=== PATIENT | male | born 1970 | race Caucasian/White ===

== ENCOUNTER 2020-10-21 00:45 | Day surgery (SDC) | payer BC, SELFPAY ==
[2020-10-01 14:12] VITALS: BMI 36.0
[2020-10-21 09:42] VITALS: BMI 34.8
[2020-10-21 09:49] VITALS: BP 129/91; PULSE 87; RESP 18; O2SAT 99
[2020-10-21 09:51] VITALS: BP 116/80; PULSE 84; RESP 16; O2SAT 99
--- NOTE | 2020-10-21 09:55 | PM.HPGS ---
History of Present Illness History of Present Illness Consent: Risks, benefits, and alternatives have been discussed and questions answered. Patient agrees to proceed with procedure. Chief complaint: Hemorrhoids Narrative: Alessio Iyer is a 49 year old male with perianal discomfort, last colonoscopy had medium size internal hemorrhoids Review of Systems Constitutional: Constitutional: Denies headache(s) and Denies weakness Eyes: Eyes: Denies blurry vision ENT: Reports Normal hearing present, Denies headache(s) and Denies neck pain Cardiovascular: Cardiovascular: Denies chest pain and Denies dyspnea Respiratory: Respiratory: Denies dyspnea Gastrointestinal: Gastrointestinal: Reports no additional gastrointestinal complaints Genitourinary: Genitourinary: Denies dysuria Musculoskeletal: Musculoskeletal: Denies neck pain Integumentary/Breasts: Skin/Breast: Denies dry skin Neurologic: Reports Normal hearing present, Denies headache(s) and Denies weakness Psychiatric: Psychiatric: Denies anxiety Endocrine: Endocrine: Denies change in body appearance Hematologic/Lymphatic: Hematologic/Lymphatic: Denies easy bleeding Allergic/Immunologic: Allergic/Immunologic: Denies urticaria PMF Past Medical History Medical History (Updated 06/18/20 @ 11:47 by Princess Saravia APN-C) Anxiety Benign hypertension (~03/2019) BPH (benign prostatic hyperplasia) Cervical spondylosis Degenerative disc disease Diverticulitis of colon with perforation Dyslipidemia GERD (gastroesophageal reflux disease) Gout Hemorrhoids Hernia History of diverticular abscess (~2004) Hypogonadism Hypokalemia Hyponatremia Irritable bowel syndrome Obesity (BMI 30-39.9) Polyarthralgia Pre-diabetes Syncope and collapse (~03/2019) Tobacco dependence Type 2 diabetes mellitus without complications Unspecified osteoarthritis, unspecified site Surgical History Surgical History History of incisional hernia repair 2006 History of partial colectomy 2004 - secondary to perforated diverticulitis Family History Family History Father Diabetes mellitus Social History Social History Smoking packs per day: 1 Smoking cigarettes per day: 20.0 Years smoked: 35 Smoking pack-years: 35.00 Smoking status: Current every day smoker Tobacco type: cigarettes Second hand tobacco smoke exposure: Yes Additional smoking assessment comments: consume 1 pack of cigarettes daily Alcohol intake: current Drinks per week: 24 Alcohol use details: beer Substance use: never Substance use type: does not use Living arrangements: with family Gender identity (if verbalized by the patient): Male Spiritual care concerns: No Meds Home Medications and Allergies Home Medications Medication Instructions Recorded Confirmed Type albuterol sulfate 90 mcg/actuation 2 puff INHALATION Q4-6H PRN gm 10/09/19 10/08/20 History aerosol inhaler blood sugar diagnostic #100 each 12/19/19 10/08/20 Rx blood-glucose meter #1 each 12/19/19 10/08/20 Rx buspirone 30 mg tablet 30 mg PO BID 12/19/19 10/08/20 History finasteride 5 mg tablet 5 mg PO DAILY 12/19/19 10/08/20 History lancets 31 gauge #100 each 12/19/19 10/08/20 Rx allopurinol 300 mg tablet 300 mg PO DAILY #90 tablet 02/05/20 10/08/20 Rx indapamide 2.5 mg tablet 2.5 mg PO QAM #90 tablet 02/05/20 10/08/20 Rx rosuvastatin 20 mg tablet 20 mg PO DAILY #90 tablet 02/05/20 10/08/20 Rx losartan 50 mg tablet 50 mg PO DAILY #90 tablet 02/18/20 10/08/20 Rx omeprazole 40 mg capsule,delayed 40 mg PO DAILY #90 cap 02/18/20 10/08/20 Rx release metformin 1,000 mg tablet See Rx Instructions .ROUTE 07/28/20 10/08/20 Rx .COMPLEX #180 tablet amoxicillin 875 mg-potassium 1 tablet PO Q12H #20 tablet 10/08/20 10/08/20 Rx clavulanat
--- NOTE | 2020-10-21 09:58 | PM.PROC ---
Procedure Note - Detailed Date of procedure: 10/21/20 Pre-op diagnosis: Hemorrhoids Post-op diagnosis: same Procedure performed: infrared coagulation (IRC) Description of procedure: after he signed consent, I performed rectal exam, no lesions, only small hemorrhoids, no fissure. Then I introduced IRC using anoscope, found grade II internal hemorrhoids, treated with IRC x5 applications at 1.5 seconds each time, no complications. We did not use anesthesia Complications: No immediate complications Condition: stable Anesthesia: none Surgeon: Danny Krause MD Findings: grade II internal hemorrhoids
== END 2020-10-21 10:00 | disposition home or self-care (01) ==
PROVIDERS: PCP Family Medicine; Visit Provider Internal Medicine Gastroenterology
PROC: (CPT 46930; principal; 2020-10-21 09:45)
DX: K64.1 Second degree hemorrhoids (principal); K57.30 Diverticulosis of large intestine without perforation or abscess without bleeding; I10 Essential (primary) hypertension; E11.9 Type 2 diabetes mellitus without complications; E78.5 Hyperlipidemia, unspecified; E66.9 Obesity, unspecified; K21.9 Gastro-esophageal reflux disease without esophagitis; K58.9 Irritable bowel syndrome, unspecified; M25.50 Pain in unspecified joint; M10.9 Gout, unspecified; M19.90 Unspecified osteoarthritis, unspecified site; N40.0 Benign prostatic hyperplasia without lower urinary tract symptoms; F17.200 Nicotine dependence, unspecified, uncomplicated; F41.9 Anxiety disorder, unspecified; Z90.49 Acquired absence of other specified parts of digestive tract
CPT/HCPCS: 46930

== ENCOUNTER 2021-01-14 01:11 | Day surgery (SDC) | payer BC, SELFPAY ==
[2021-01-09 14:26] VITALS: BMI 34.4
[2021-01-14 11:58] VITALS: BMI 34.7
--- NOTE | 2021-01-14 12:27 | PM.HPGS ---
History of Present Illness History of Present Illness Consent: Risks, benefits, and alternatives have been discussed and questions answered. Patient agrees to proceed with procedure. Chief complaint: hemorrhoid Narrative: Alessio Iyer is a 50 year old male still with symptomatic hemorrhoids, he says that last IRC did not make much of difference and tried in the past topical hemorrhoidal rx Review of Systems Constitutional: Constitutional: Denies headache(s) and Denies weakness Eyes: Eyes: Denies blurry vision ENT: Reports Normal hearing present, Denies headache(s) and Denies neck pain Cardiovascular: Cardiovascular: Denies chest pain and Denies dyspnea Respiratory: Respiratory: Denies dyspnea Gastrointestinal: Gastrointestinal: Reports no additional gastrointestinal complaints Genitourinary: Genitourinary: Denies dysuria Musculoskeletal: Musculoskeletal: Denies neck pain Integumentary/Breasts: Skin/Breast: Denies dry skin Neurologic: Reports Normal hearing present, Denies headache(s) and Denies weakness Psychiatric: Psychiatric: Denies anxiety Endocrine: Endocrine: Denies change in body appearance Hematologic/Lymphatic: Hematologic/Lymphatic: Denies easy bleeding Allergic/Immunologic: Allergic/Immunologic: Denies urticaria PMFSH Past Medical History Medical History Anxiety Benign hypertension (~03/2019) BPH (benign prostatic hyperplasia) Cervical spondylosis Degenerative disc disease Diverticulitis of colon with perforation Dyslipidemia GERD (gastroesophageal reflux disease) Gout Hemorrhoids Hernia History of diverticular abscess (~2004) Hypogonadism Hypokalemia Hyponatremia Irritable bowel syndrome Obesity (BMI 30-39.9) Polyarthralgia Pre-diabetes Syncope and collapse (~03/2019) Tobacco dependence Type 2 diabetes mellitus without complications Unspecified osteoarthritis, unspecified site Surgical History Surgical History History of incisional hernia repair 2006 History of partial colectomy 2004 - secondary to perforated diverticulitis Family History Family History Father Diabetes mellitus Social History Social History Smoking packs per day: 1 Smoking cigarettes per day: 20.0 Years smoked: 35 Smoking pack-years: 35.00 Smoking status: Current every day smoker Tobacco type: cigarettes Second hand tobacco smoke exposure: Yes Additional smoking assessment comments: consume 1 pack of cigarettes daily Alcohol intake: current Drinks per week: 24 Substance use: never Substance use type: does not use Gender identity (if verbalized by the patient): Male Spiritual care concerns: No Meds Home Medications and Allergies Home Medications Medication Instructions Recorded Confirmed Type albuterol sulfate 90 mcg/actuation 2 puff INHALATION Q4-6H PRN gm 10/09/19 01/14/21 History aerosol inhaler blood sugar diagnostic #100 each 12/19/19 01/09/21 Rx blood-glucose meter #1 each 12/19/19 01/09/21 Rx buspirone 30 mg tablet 30 mg PO BID 12/19/19 01/14/21 History finasteride 5 mg tablet 5 mg PO DAILY 12/19/19 01/14/21 History lancets 31 gauge #100 each 12/19/19 01/09/21 Rx allopurinol 300 mg tablet 300 mg PO DAILY #90 tablet 02/05/20 01/14/21 Rx indapamide 2.5 mg tablet 2.5 mg PO QAM #90 tablet 02/05/20 01/14/21 Rx blood sugar diagnostic #100 ea 11/05/20 01/09/21 Rx glipizide 5 mg tablet, extended 5 mg PO DAILY #90 tablet 11/05/20 01/14/21 Rx release 24 hr omeprazole 40 mg capsule,delayed 40 mg PO DAILY #90 cap 11/14/20 01/14/21 Rx release losartan 50 mg tablet 50 mg PO DAILY #90 tablet 11/19/20 01/14/21 Rx potassium chloride 10 mEq 10 meq PO DAILY #90 tablet 11/19/20 01/14/21 Rx tablet,extended release metformin 1,000
--- NOTE | 2021-01-14 12:29 | P.OP_ITS ---
Procedure Note - Detailed Date of procedure: 01/14/21 Pre-op diagnosis: hemorrhoid internal hemorrhoids Procedure performed: IRC Description of procedure: Description of procedure: after he signed consent, I performed rectal exam, no lesions, only small hemorrhoids, no fissure. Then I introduced IRC using anoscope, found grade II internal hemorrhoids at 12- 3 o 'clock, treated with IRC x4 applications at 1.5 seconds each time, no complications. We did not use anesthesia Complications: No immediate complications Condition: stable Anesthesia: none Surgeon: Danny Krause MD Findings: recommendations: will see if second IRC helps, if not probably no need to try another time. Avoid hard stools, straining and if still symptomatic may need to see surgery
== END 2021-01-14 12:39 | disposition home or self-care (01) ==
PROVIDERS: PCP Family Medicine; Visit Provider Internal Medicine Gastroenterology
PROC: (CPT 46930; principal; 2021-01-14 12:00)
DX: K64.1 Second degree hemorrhoids (principal); I10 Essential (primary) hypertension; K21.9 Gastro-esophageal reflux disease without esophagitis; E78.5 Hyperlipidemia, unspecified; N40.0 Benign prostatic hyperplasia without lower urinary tract symptoms; F41.9 Anxiety disorder, unspecified; E11.9 Type 2 diabetes mellitus without complications; M19.90 Unspecified osteoarthritis, unspecified site; M47.812 Spondylosis without myelopathy or radiculopathy, cervical region; K58.9 Irritable bowel syndrome, unspecified; F17.210 Nicotine dependence, cigarettes, uncomplicated; Z79.51 Long term (current) use of inhaled steroids; Z79.84 Long term (current) use of oral hypoglycemic drugs
CPT/HCPCS: 46930; J7120

== ENCOUNTER 2021-10-13 13:39 | Outpatient (CLI) | payer BC, SELFPAY ==
--- NOTE | ~2021-10-13 | XR_ITS ---
EXAMINATION: XR chest 2V EXAM DATE: 10/13/2021 13:59 INDICATION: Cough, shortness of breath, symptoms one month. TECHNIQUE: Frontal and lateral projections of the chest obtained and reviewed. Comparison is made to prior examination from 03/16/2019. FINDINGS: The lungs are clear. There are no pleural effusions. The cardiomediastinal silhouette is within normal limits. There is no pneumothorax suspected. The bones and soft tissues are unremarkab le. IMPRESSION: No acute cardiopulmonary findings. Reviewed, dictated and finalized at location [facility]. PER ON
== END 2021-10-13 13:40 | disposition home or self-care (01) ==
LOC: ANHIMG 13:43
PROVIDERS: PCP Family Medicine; Visit Provider Emergency Medicine
DX: R05.9 Cough, unspecified (principal); R06.02 Shortness of breath
CPT/HCPCS: 71046

== ENCOUNTER 2021-11-18 09:21 | Outpatient (CLI) | payer BC, SELFPAY ==
--- NOTE | ~2021-11-18 | US_ITS ---
EXAMINATION: US right upper quadrant DATE: 11/18/2021 09:48 INDICATION: Abnormal liver function tests. TECHNIQUE: Multiple grayscale and Doppler ultrasound images of the abdomen were obtained. COMPARISON: CT abdomen and pelvis 12/05/2018 FINDINGS: The pancreas is obscured by bowel gas. There is diffuse hepatic steatosis. No liver surface nodularity. There is normal flow in main portal vein. The gallbladder is normal in size. No gallston es or gallbladder wall thickening. There was no sonographic Schultz sign. The common duct is normal an d measures 5 mm. IMPRESSION: 1. Diffuse hepatic steatosis. Reviewed, dictated and finalized at location [facility].
== END 2021-11-18 09:22 | disposition home or self-care (01) ==
LOC: ANHIMG 09:22
PROVIDERS: PCP Emergency Medicine; Visit Provider Emergency Medicine
DX: R74.8 Abnormal levels of other serum enzymes (principal); K76.0 Fatty (change of) liver, not elsewhere classified
CPT/HCPCS: 76705

== ENCOUNTER 2022-03-30 12:14 | Outpatient (CLI) | payer BC, SELFPAY ==
--- NOTE | ~2022-03-30 | US_ITS ---
EXAMINATION: US retroperitoneal duplex ltd DATE: 03/30/2022 13:51 INDICATION: hypertension TECHNIQUE: Multiple grayscale, color Doppler, and pulsed Doppler images of the kidneys and renal adonis allan were obtained. COMPARISON: None. FINDINGS: The aorta peak systolic velocity is 73 cm/s. The right renal artery peak systolic velocity is 175 cm/ s in the proximal segment, 128 cm/s in the mid segment, and 124 cm/s in the distal segment. The left renal artery peak systolic velocity is 135 cm/s in the proximal segment, 70 cm/s in the mid segment, and 83 cm/s in the distal segment. IMPRESSION: 1. No Doppler evidence of renal artery stenosis. Reviewed, dictated and finalized at location [facility].
== END 2022-03-30 12:15 | disposition home or self-care (01) ==
PROVIDERS: PCP Emergency Medicine; Visit Provider Internal Medicine Nephrology
DX: N18.30 Chronic kidney disease, stage 3 unspecified (principal); I10 Essential (primary) hypertension
CPT/HCPCS: 93976

== ENCOUNTER 2022-08-12 07:09 | Outpatient (CLI) | payer BC, SELFPAY ==
--- NOTE | ~2022-08-12 | CT_ITS ---
EXAMINATION: CT abdomen pelvis wo con DATE: 08/12/2022 07:36 INDICATION: Abdominal pain. History of diverticulitis and umbilical hernia surgery TECHNIQUE: Computed tomography (CT) of the abdomen and pelvis was performed without intravenous contr ast. Automated exposure control and iterative reconstruction technique were employed. Exam dose: 785 .76 mGy-cm total exam DLP. COMPARISON: 03/30/2022 retroperitoneal ultrasound examination 11/18/2021 right upper quadrant abdominal ultrasound examination 12/05/2018 CT abdomen pelvis FINDINGS: The lung bases are clear. Normal heart size. No pericardial or pleural effusion. The liver, gallbladder, bile ducts, spleen, pancreas, pancreatic duct and adrenal glands are unremark able. Nonspecific bilateral perinephric fat stranding is noted. No urinary tract calculus or hydroureterone phrosis. The urinary bladder is unremarkable. There is prostate calcification. There is atherosclerotic calcification but normal caliber of the abdominal aorta and iliac arteries. No intraperitoneal or retroperitoneal or pelvic mass lesion or adenopathy or ascites. There is a suture line at the sigmoid colon. Status post appendectomy. No bowel obstruction, bowel wa ll thickening, pneumatosis or intraperitoneal free air is detected. Small bilateral fat-containing inguinal hernias. No umbilical or ventral abdominal wall hernia is det ected. Status post mesh umbilical hernia repair. Bilateral L5 pars interarticularis defects. Prominent degenerative spurring at T9-10 and T12-L1. Mild retrolisthesis at L2-3. Moderate degenerative disc disease at L5-S1. No suspicious osteolytic or osteoblastic lesions. IMPRESSION: Status post sigmoid colon resection and appendectomy Status post umbilical hernia repair Chronic nonspecific perinephric fat stranding, also present on 12/05/2018 Bilateral L5 pars interarticularis defects Reviewed, dictated and finalized at [facility]. Reviewed, dictated and finalized at location [facility]. 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
== END 2022-08-12 07:10 | disposition home or self-care (01) ==
LOC: ANHIMG 07:13
PROVIDERS: PCP Emergency Medicine; Visit Provider Emergency Medicine
DX: R10.9 Unspecified abdominal pain (principal); Z98.890 Other specified postprocedural states; M53.86 Other specified dorsopathies, lumbar region
CPT/HCPCS: 74176

== ENCOUNTER 2022-11-26 14:33 | Outpatient (CLI) | payer BC, SELFPAY ==
--- NOTE | ~2022-11-26 | CT_ITS ---
Non-contrast CT scan of the Abdomen and Pelvis Clinical indication: Abdominal cramping, vomiting Technique: 2.5 mm axial scans were obtained through the abdomen and pelvis without intravenous or or al contrast. Dose reduction technique was used on this scan by utilizing automated exposure control a nd iterative reconstruction technique. The dose-length product (DLP) was 750.04 mGy-cm. COMPARISON: 08/12/2022 Findings: Images through the lung bases reveal no abnormalities. There is no evidence of renal or ureteral calculi. The kidneys and the ureters are nondilated. The liver, spleen, pancreas, gallbladder, and adrenals appear normal. There is no aortic aneurysm. There is no evidence of bowel obstruction. Rectosigmoid region anastomosis noted. Evidence of prior u mbilical hernia repair. Images through the pelvis were performed. There is no evidence of ascites or lymphadenopathy. Urinary bladder unremarkable. Prostate gland and seminal vesicles are unremarkable. Bilateral L5 pars interarticularis defects are present. Impression: No acute abnormality. Postsurgical changes, as above. Bilateral L5 pars interarticularis defects. Reviewed, dictated and finalized at [facility]. Impression: No acute abnormality. Postsurgical changes, as above. Bilateral L5 pars interarticularis defects.
--- NOTE | ~2022-11-26 | XR_ITS ---
XR abdomen/kub 1V DATE: 11/26/2022 14:54 INDICATION: Abdominal cramping, vomiting. HISTORY: Resection. TECHNIQUE: 2 AP views of the abdomen COMPARISON: 08/12/2022 CT abdomen pelvis FINDINGS: The lung bases appear clear. Heart size appears within normal range. The psoas shadows are intact. No visceromegaly is evident. Surgical clips overlie the left mid and lower abdomen. Radiopaque bowel sutures overlie the pelvic ar ea. History of colon resection. No evidence of bowel obstruction. No significant abnormal calcification is noted. IMPRESSION: Nonspecific postoperative abdomen Reviewed, dictated and finalized at [facility]. Reviewed, dictated and finalized at location A.
== END 2022-11-26 14:34 | disposition home or self-care (01) ==
PROVIDERS: PCP Emergency Medicine; Visit Provider Emergency Medicine
DX: R10.9 Unspecified abdominal pain (principal); R11.10 Vomiting, unspecified; Z98.890 Other specified postprocedural states
CPT/HCPCS: 74018; 74176

== ENCOUNTER 2022-12-28 00:05 | Day surgery (SDC) | payer BC, SELFPAY ==
[2022-12-20 08:30] VITALS: BMI 29.4
[2022-12-28 06:22] VITALS: BP 129/75; PULSE 85; RESP 18; TEMP 36.2; O2SAT 99
[2022-12-28] MEDS: LACTATED RINGERS 1,000 ML 150 ML IV CONT (06:35)
[2022-12-28 07:11] LABS: Glucose Point of Care 101 mg/dl (65-105)
--- NOTE | 2022-12-28 07:15 | WPDANESEPPF ---
Anes - Initial Pre Proc Eval Procedure: Operation Date: 12/28/22 07:30 Proposed Procedures p Colonoscopy - Danny Krause MD Date/Time: 12/28/22 07:15 Surgeon: Danny Krause MD Pre Op Diagnosis: diverticulitis with perforation, IBS Patient Data Age: 52 Gender: M Height: 1.78 m Weight: 91.6 kg Last Vital Signs Temp 36.2 C L 12/28/22 06:22 Pulse 85 12/28/22 06:22 Resp 18 12/28/22 06:22 BP 129/75 12/28/22 06:22 Pulse Ox 99 12/28/22 06:22 O2 Del Method Room Air 12/28/22 06:22 Allergies Allergy/AdvReac Type Severity Reaction Status Date / Time No Known Allergies Allergy Verified 12/28/22 06:22 Home Medications Medication Instructions Recorded Confirmed Type blood-glucose meter #1 ea 12/19/19 12/20/22 Rx buspirone 30 mg tablet 30 mg PO BID 12/19/19 12/20/22 History finasteride 5 mg tablet 5 mg PO DAILY 12/19/19 12/20/22 History flash glucose scanning reader #1 ea 03/17/21 12/20/22 Rx (FreeStyle [place] 2 [place]) flash glucose sensor (FreeStyle #1 ea 03/17/21 12/20/22 Rx Neville 2 Sensor kit) losartan 50 mg tablet 50 mg PO DAILY #90 tabs 02/09/22 12/20/22 Rx fenofibrate 160 mg tablet 160 mg PO DAILY #90 tabs 03/01/22 12/20/22 Rx indapamide 2.5 mg tablet 2.5 mg PO QAM #90 tabs 04/26/22 12/20/22 Rx rosuvastatin 20 mg tablet (Crestor) 20 mg PO DAILY #90 tabs 04/26/22 12/20/22 Rx dulaglutide 1.5 mg/0.5 mL 1.5 mg subcut WEEKLY 06/23/22 12/20/22 History subcutaneous pen injector (Trulicity) omeprazole 40 mg capsule,delayed 40 mg PO DAILY #90 caps 06/23/22 12/20/22 Rx release hydroxyzine HCl 25 mg tablet 25 mg PO TID PRN anxiety #90 tabs 08/06/22 12/20/22 Rx Farxiga 10 mg PO DAILY 12/20/22 12/20/22 History Symbicort 2 puff inhalation DAILY 12/20/22 12/20/22 History albuterol 2 puff inhalation PRN sob 12/20/22 12/20/22 History magnesium oxide 400 mg PO DAILY 12/20/22 12/20/22 History Laboratory Tests 12/28/22 07:08 POC Capillary Glucose 101 mg/dl mg/dl (65-105) Patient hx anesthesia problems: none Family hx anesthesia problems: none Results Review: All pre-operative results and documents have been reviewed as part of the pre-operative evaluation. [facility] Past Medical History Medical History Anxiety Benign hypertension (~03/2019) BPH (benign prostatic hyperplasia) Cervical spondylosis Degenerative disc disease Diverticulitis of colon with perforation Dyslipidemia GERD (gastroesophageal reflux disease) GERD (gastroesophageal reflux disease) Gout Hemorrhoids History of diverticular abscess (~2004) Hx of adenomatous colonic polyps Hypogonadism Hypokalemia Hyponatremia IBS (irritable bowel syndrome) Irritable bowel syndrome Obesity (BMI 30-39.9) Polyarthralgia Tobacco dependence Type 2 diabetes mellitus without complications Unspecified osteoarthritis, unspecified site Surgical History Surgical History History of hemorrhoidectomy 01/2021 History of incisional hernia repair 2006 History of partial colectomy 2004 - secondary to perforated diverticulitis S/P colostomy takedown 2006 Family History Family History Father Diabetes mellitus Social History Social History Smoking packs per day: 1 Smoking cigarettes per day: 20.0 Years smoked: 35 Smoking pack-years: 35.00 Smoking status: Current every day smoker Tobacco type: cigarettes Second hand tobacco smoke exposure: Yes Additional smoking assessment comments: consume 1 pack of cigarettes daily Alcohol intake: current Drinks per week: 48 Alcohol use details: beer Substance use: current Substance use type: marijuana Living arrangements: with family Gender identity (if verbalized by the patient):
--- NOTE | 2022-12-28 07:37 | WPDHPUPDATE1 ---
History and Physical Update Update Date/Time: 12/28/22 07:37 History and Physical has been reviewed, including an updated exam of the patient. There are NO changes in the patient's condition. Risks, benefits, and alternatives have been discussed and questions answered. Patient agrees to proceed with procedure.
[2022-12-28 07:54] VITALS: BP 116/84; PULSE 83; RESP 19; O2SAT 96
[2022-12-28 08:04] VITALS: BP 115/66; PULSE 78; RESP 18; O2SAT 99
[2022-12-28 08:14] VITALS: BP 127/74; PULSE 69; RESP 16; O2SAT 100
== END 2022-12-28 08:17 | disposition home or self-care (01) ==
PROVIDERS: PCP Emergency Medicine; Visit Provider Internal Medicine Gastroenterology
PROC: 0DJD8ZZ Inspection of Lower Intestinal Tract, Via Natural or Artificial Opening Endoscopic (ICD-10-PCS; CPT 45378; principal; 2022-12-28 07:30)
DX: K58.0 Irritable bowel syndrome with diarrhea (principal); K63.5 Polyp of colon; K64.8 Other hemorrhoids; Z86.010 Personal history of colon polyps; Z98.0 Intestinal bypass and anastomosis status; Z90.49 Acquired absence of other specified parts of digestive tract; Z87.19 Personal history of other diseases of the digestive system; I10 Essential (primary) hypertension; E11.9 Type 2 diabetes mellitus without complications; N40.0 Benign prostatic hyperplasia without lower urinary tract symptoms; F41.9 Anxiety disorder, unspecified; E78.5 Hyperlipidemia, unspecified; K21.9 Gastro-esophageal reflux disease without esophagitis; M10.9 Gout, unspecified; Z79.899 Other long term (current) drug therapy; Z79.51 Long term (current) use of inhaled steroids; F17.210 Nicotine dependence, cigarettes, uncomplicated; F12.90 Cannabis use, unspecified, uncomplicated
CPT/HCPCS: 45385; 82948; 88305; J2704; J7120

== ENCOUNTER 2023-07-14 10:50 | Outpatient (CLI) | payer BC, SELFPAY ==
--- NOTE | ~2023-07-14 | MR_ITS ---
MRI of the cervical spine Clinical History: Radiculopathy Technique: Axial T2-weighted and gradient images, and sagittal T1-weighted, T2-weighted, and STIR yuridia ges were acquired. COMPARISON: 01/08/2015 Findings: There is straightening of the normal cervical lordosis. There is 2-3 mm retrolisthesis of C 3 over C4. There are reactive marrow signal changes due to degenerative disc disease, most prominent at the C3-C4 and C5-C6 disc spaces. At C2-C3, there is minimal disc bulge. There is right facet arthropathy. No spinal canal stenosis or neural foraminal narrowing. At C3-C4, there is mild disc osteophyte complex, with mild canal stenosis but no arsalan cord compressi on. There is mild bilateral neural foraminal narrowing. At C4-C5, there is no significant disc bulge or herniation. No spinal canal stenosis, cord compressio n, or neural foraminal narrowing. At C5-C6, there is disc osteophyte complex with mild canal stenosis but no arsalan cord compression. Th ere is bilateral neural foraminal narrowing. At C6-C7, there is disc osteophyte complex with mild canal stenosis but no arsalan cord compression. Th ere is bilateral neural foraminal narrowing, right worse than left. No abnormal signal seen in the spinal cord. Paravertebral soft tissues are unremarkable. Impression: Moderate degenerative spondylosis, as above. 2-3 mm retrolisthesis of C3 over C4. Reviewed, dictated and finalized at [facility]. R SEAMER Impression: Moderate degenerative spondylosis, as above. 2-3 mm retrolisthesis of C3 over C4.
== END 2023-07-14 10:51 ==
PROVIDERS: PCP Nurse Practitioner Family; Visit Provider Nurse Practitioner Family
DX: M54.12 Radiculopathy, cervical region (principal); M43.02 Spondylolysis, cervical region
CPT/HCPCS: 72141

== ENCOUNTER 2024-10-01 13:23 | Emergency (ER) | payer BC, SELFPAY ==
[2024-10-01 13:28] VITALS: BP 109/78; PULSE 108; RESP 16; TEMP 37; O2SAT 98
--- NOTE | 2024-10-01 14:16 | ED_ITS ---
HPI - General Adult General Chief complaint: Unspecified Stated complaint: Abdominal Pain Time Seen by Provider: 10/01/24 14:12 Source: patient and RN notes reviewed Mode of arrival: ambulatory Limitations: no limitations History of Present Illness HPI narrative: Patient presents today complaining of abdominal pain. He has IBS-C and had a flare last night from 1:00 a.m. to 7:00 a.m. this morning with significant abdominal cramping for which he was up. He had to call into work today because of this and needs a work excuse. 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 Patient is feeling a little bit better and does have some dicyclomine for cramping, which helps some. Denies any additional symptoms. Related Data Home Medications ?Medication ?Instructions ?Recorded ?Confirmed ?Last Taken ?Type buspirone 30 mg tablet 30 mg PO BID 12/19/19 01/11/23 01/14/21 10:30 History finasteride 5 mg tablet 5 mg PO DAILY 12/19/19 01/11/23 01/14/21 10:30 History dulaglutide 1.5 mg/0.5 mL 1.5 mg subcut WEEKLY 06/23/22 01/11/23 Unknown History subcutaneous pen injector (Trulicity) Farxiga 10 mg PO DAILY 12/20/22 01/11/23 Unknown History Symbicort 2 puff inhalation DAILY 12/20/22 01/11/23 Unknown History albuterol 2 puff inhalation PRN sob 12/20/22 01/11/23 Unknown History magnesium oxide 400 mg PO DAILY 12/20/22 01/11/23 Unknown History Allergies Allergy/AdvReac Type Severity Reaction Status Date / Time No Known Allergies Allergy Verified 10/01/24 13:26 Review of Systems Review of Systems: CONSTITUTIONAL: Denies body aches, fever, chills, or sweats. EYES: Denies visual changes, redness, or discharge. ENT: Denies rhinorrhea, congestion, sore throat, or otalgia. CARDIOVASCULAR: Denies chest pain, palpitations, or edema. RESPIRATORY: Denies cough or dyspnea. GASTROINTESTINAL: Denies nausea, vomiting, or diarrhea.+ abdominal cramping GENITOURINARY: Denies dysuria or hematuria. SKIN: Denies rash, itching, or wounds. MUSCULOSKELETAL: Denies back pain, joint pain, or myalgia. NEUROLOGIC: Denies headache, numbness, tingling, or weakness. PSYCH: Denies depression or anxiety. [facility] Past Medical History Medical History IBS (irritable bowel syndrome) GERD (gastroesophageal reflux disease) Hx of adenomatous colonic polyps Tobacco dependence Obesity (BMI 30-39.9) Hemorrhoids Irritable bowel syndrome BPH (benign prostatic hyperplasia) Dyslipidemia Type 2 diabetes mellitus without complications Hyponatremia Polyarthralgia Benign hypertension (~03/2019) Anxiety GERD (gastroesophageal reflux disease) Unspecified osteoarthritis, unspecified site Hypokalemia Hypogonadism Diverticulitis of colon with perforation Degenerative disc disease Cervical spondylosis Gout History of diverticular abscess (~2004) Surgical History Surgical History S/P colostomy takedown 2006 History of hemorrhoidectomy 01/2021 History of partial colectomy 2004 - secondary to perforated diverticulitis History of incisional hernia repair 2006 Family History Family History Father Diabetes mellitus Social History Social History Smoking packs per day: 1 Smoking cigarettes per day: 20.0 Years smoked: 35 Smoking pack-years: 35.00 Smoking status: Current every day smoker Tobacco type: cigarettes Second hand tobacco smoke exposure: Yes Additional smoking assessment comments: consume 1 pack of cigarettes daily Alcohol intake: current Drinks per week: 48 Alcohol use details: beer Substance use: current Substance use type: marijuana Living arrangements: with family Gender identity (if verbalized by the patient): Male Spiritual care concerns: No Comments At time of signature, I have reviewed and agree with nursing past medical, surgical, social and family history unless otherwise noted. Please see nursing chart for further information. There is no relevant family history pertinent to the presenting complaint Exam Narrative: GENERAL: Well-appearing, well-nourished, and in no acute distress. HEAD: Normocephalic, atraumatic. EYES: EOMI. No redness or drainage. Conjunctivae normal. ENT: Mucous membranes pink and moist. NECK: Normal AROM. CHEST: No respiratory distress. Clear to auscultation. HEART: Regular rate and rhythm. No murmur appreciated. ABDOMEN: Soft, nontender, nondistended, normal active bowel sounds. EXTREMITIES: Normal range of motion. No edema. SKIN: Warm, dry, no rash. Capillary refill normal. Normal skin turgor. NEURO: No focal deficits. Alert and oriented x3. Gait steady. PSYCH: Normal affect. No signs of depression or anxiety. Course Course Level of Care: Express Care Visit Vital Signs Vital signs: Vital Signs Temperature 98.6 F 10/01/24 13:28 Pulse Rate 108 H 10/01/24 13:28 Respiratory Rate 16 10/01/24 13:28 Blood Pressure 109/78 10/01/24 13:28 Pulse Oximetry 98 10/01/24 13:28 Oxygen Delivery Room Air 10/01/24 13:28 Temperature 98.6 F 10/01/24 13:28 Pulse Rate 108 H 10/01/24 13:28 Respiratory Rate 16 10/01/24 13:28 Blood Pressure 109/78 10/01/24 13:28 Pulse Oximetry 98 10/01/24 13:28 Oxygen Delivery Room Air 10/01/24 13:28 Reviewed Medical Decision Making MDM Narrative Medical decision making narrative: Patient will be discharged with a work excuse. He will follow-up with his GI or PCP as needed. Differential Diagnosis Differential Diagnosis: Your double bowel syndrome, abdominal cramping Vital Signs Vital Signs: Vital Signs Temperature 98.6 F 10/01/24 13:28 Pulse Rate 108 H 10/01/24 13:28 Respiratory Rate 16 10/01/24 13:28 Blood Pressure 109/78 10/01/24 13:28 Pulse Oximetry 98 10/01/24 13:28 Oxygen Delivery Room Air 10/01/24 13:28 Temperature 98.6 F 10/01/24 13:28 Pulse Rate 108 H 10/01/24 13:28 Respiratory Rate 16 10/01/24 13:28 Blood Pressure 109/78 10/01/24 13:28 Pulse Oximetry 98 10/01/24 13:28 Oxygen Delivery Room Air 10/01/24 13:28 Critical Care Time Critical Care Time Critical Care Time: No Discharge Plan Discharge Clinical Impression: Abdominal cramping Patient Disposition: Home, Self-Care Condition: Stable Instructions: Antibiotic Form Additional Instructions: Please continue your dicyclomine as prescribed if needed. 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 Patient Language: Cymraes Prescriptions: No Action finasteride 5 mg tablet 5 mg PO DAILY buspirone 30 mg tablet 30 mg PO BID (DME) FreeStyle [place] 2 [place] Misc See Rx Instructions .Route Qty: 1 0RF Rx Instructions: use As directed (DME) FreeStyle [place] 2 Sensor Kit See Rx Instructions .Route Qty: 1 0RF Rx Instructions: use As directed Trulicity 1.5 mg/0.5 mL pen injector 1.5 mg subcut WEEKLY Farxiga 10 mg PO DAILY Symbicort 2 puff inhalation DAILY albuterol 2 puff inhalation PRN magnesium oxide 400 mg PO DAILY (DME) blood-glucose meter Kit See Rx Instructions .ROUTE .MEDSUPPLY Qty: 1 0RF Rx Instructions: Use to check blood sugar once daily fasting losartan 50 mg tablet 50 mg PO DAILY Qty: 90 1RF Rx Instructions: take 1 tablet by oral route every day fenofibrate 160 mg tablet 160 mg PO DAILY Qty: 90 1RF indapamide 2.5 mg tablet 2.5 mg PO QAM Qty: 90 0RF rosuvastatin [Crestor] 20 mg tablet 20 mg PO DAILY Qty: 90 0RF omeprazole 40 mg capsule,delayed release(DR/EC) See Rx Instructions .ROUTE .COMPLEX Qty: 90 3RF Dose Instruction: TAKE 1 CAPSULE DAILY BEFORE A MEAL Rx Instructions: TAKE 1 CAPSULE DAILY BEFORE A MEAL dicyclomine 10 mg capsule See Rx Instructions .ROUTE .COMPLEX Qty: 360 7RF Dose Instruction: TAKE 1 TO 2 CAPSULES EVERY 6 HOURS NEEDED FOR ABDOMINAL PAIN Rx Instructions: TAKE 1 TO 2 CAPSULES EVERY 6 HOURS NEEDED FOR ABDOMINAL PAIN amitriptyline 25 mg tablet 25 mg PO QHS Qty: 90 3RF Follow-up/Referrals: Blaze Paulino MD [Primary Care Provider] - Stand Alone Forms: Work/School Release IP Time of Disposition: 14:24
== END 2024-10-01 14:30 | disposition home or self-care (01) ==
PROVIDERS: Emergency Provider Nurse Practitioner; PCP Emergency Medicine
DX: R10.9 Unspecified abdominal pain (principal); F17.210 Nicotine dependence, cigarettes, uncomplicated; F12.90 Cannabis use, unspecified, uncomplicated; K58.9 Irritable bowel syndrome, unspecified; N40.0 Benign prostatic hyperplasia without lower urinary tract symptoms; E11.9 Type 2 diabetes mellitus without complications; K21.9 Gastro-esophageal reflux disease without esophagitis; E66.9 Obesity, unspecified; Z68.32 Body mass index [BMI] 32.0-32.9, adult; E78.5 Hyperlipidemia, unspecified; M19.90 Unspecified osteoarthritis, unspecified site; M47.812 Spondylosis without myelopathy or radiculopathy, cervical region; M10.9 Gout, unspecified; Z90.49 Acquired absence of other specified parts of digestive tract
CPT/HCPCS: 99211; G0463

== ENCOUNTER 2024-10-18 13:59 | Emergency (ER) | payer BC, SELFPAY ==
[2024-10-18 14:11] VITALS: BP 111/70; PULSE 108; RESP 14; TEMP 36.8; O2SAT 97
--- NOTE | 2024-10-18 14:40 | ED_ITS ---
HPI - Nausea/Vomiting/Diarrhea General Chief complaint: Nausea/Vomiting/Diarrhea Stated complaint: IBS flare up, work note Time Seen by Provider: 10/18/24 14:40 Source: patient, RN notes reviewed and old records reviewed Mode of arrival: ambulatory Limitations: no limitations History of Present Illness HPI Narrative: Patient presents with complaints of abdominal cramping that he says is consistent with his usual IBS pain. He reports that he is little more nauseated than normal. He does not have any medication for nausea. He has been taking dicyclomine with moderate relief. Reports that he does feel somewhat better now the had a bowel movement this morning. Reports bowel movement was normal for him. He denies any injury or trauma. He denies any fever, chills, sweats. He voices no other concerns or complaints today. Related Data Home Medications ?Medication ?Instructions ?Recorded ?Confirmed ?Last Taken ?Type buspirone 30 mg tablet 30 mg PO BID 12/19/19 10/18/24 01/14/21 10:30 History finasteride 5 mg tablet 5 mg PO DAILY 12/19/19 10/18/24 01/14/21 10:30 History dulaglutide 1.5 mg/0.5 mL 1.5 mg subcut WEEKLY 06/23/22 10/18/24 Unknown History subcutaneous pen injector (Trulicity) Farxiga 10 mg PO DAILY 12/20/22 10/18/24 Unknown History Symbicort 2 puff inhalation DAILY 12/20/22 10/18/24 Unknown History albuterol 2 puff inhalation PRN sob 12/20/22 10/18/24 Unknown History magnesium oxide 400 mg PO DAILY 12/20/22 10/18/24 Unknown History Allergies Allergy/AdvReac Type Severity Reaction Status Date / Time No Known Allergies Allergy Verified 10/18/24 14:45 Review of Systems Review of Systems: All systems reviewed & are unremarkable except as noted in HPI and below Constitutional: Constitutional: Reports no additional constitutional complaints ENT: Reports system reviewed and no additional complaints, except as documented Cardiovascular: Cardiovascular: Reports no additional cardiovascular complaints Respiratory: Respiratory: Reports no additional respiratory complaints Gastrointestinal: Gastrointestinal: Reports no additional gastrointestinal complaints, Reports GI cramping and Reports nausea PMFSH Past Medical History Medical History IBS (irritable bowel syndrome) GERD (gastroesophageal reflux disease) Hx of adenomatous colonic polyps Tobacco dependence Obesity (BMI 30-39.9) Hemorrhoids Irritable bowel syndrome BPH (benign prostatic hyperplasia) Dyslipidemia Type 2 diabetes mellitus without complications Hyponatremia Polyarthralgia Benign hypertension (~03/2019) Anxiety GERD (gastroesophageal reflux disease) Unspecified osteoarthritis, unspecified site Hypokalemia Hypogonadism Diverticulitis of colon with perforation Degenerative disc disease Cervical spondylosis Gout History of diverticular abscess (~2004) Surgical History Surgical History S/P colostomy takedown 2006 History of hemorrhoidectomy 01/2021 History of partial colectomy 2004 - secondary to perforated diverticulitis History of incisional hernia repair 2006 Family History Family History Father Diabetes mellitus Social History Social History Smoking packs per day: 1 Smoking cigarettes per day: 20.0 Years smoked: 35 Smoking pack-years: 35.00 Smoking status: Current every day smoker Tobacco type: cigarettes Second hand tobacco smoke exposure: Yes Additional smoking assessment comments: consume 1 pack of cigarettes daily Alcohol intake: current Drinks per week: 48 Alcohol use details: beer Substance use: current Substance use type: marijuana Living arrangements: with family Gender identity (if verbalized by the patient): Male Spiritual care concerns: No Comments At the time of my signature, I reviewed and agree with the nursing past medical, surgical, social, and family history. There is no relevant family history pertinent to the patient complaint. Exam Const: General: cooperative, no acute distress, alert and awake Orientation/consciousness: oriented to person, oriented to place and oriented to time HENMT: Head: normal to inspection Resp: Effort & Inspection: normal respiratory effort and able to speak in complete sentences Auscultation: clear to auscultation bilaterally, no crackles, no rales, no rhonchi and no wheezes Cardio: Palpation: normal PMI Rate: regular rate Rhythm: regular rhythm Heart sounds: S1 normal heart sound present and S2 normal heart sound present GI: GI Palp: No abdominal tenderness, Yes Soft to palpation, No Firmness to palpation present (GI), No Tenderness to palpation present (GI) and No Guarding due to palpation present (GI) Auscultation: normal bowel sounds Neuro: General: oriented to person, oriented to place and oriented to time Cranial nerves: Yes CN's II-XII intact bilaterally Psych: Appearance: grossly normal Thought process: Normal thought process present Insight: Good insight present (Psych) Judgement: Good judgement present (Psych) Course Course Level of Care: Express Care Visit Vital Signs Vital signs: Vital Signs Temperature 98.3 F 10/18/24 14:11 Pulse Rate 108 H 10/18/24 14:11 Respiratory Rate 14 10/18/24 14:11 Blood Pressure 111/70 10/18/24 14:11 Pulse Oximetry 97 10/18/24 14:11 Oxygen Delivery Room Air 10/18/24 14:11 Temperature 98.3 F 10/18/24 14:11 Pulse Rate 108 H 10/18/24 14:11 Respiratory Rate 14 10/18/24 14:11 Blood Pressure 111/70 10/18/24 14:11 Pulse Oximetry 97 10/18/24 14:11 Oxygen Delivery Room Air 10/18/24 14:11 Reviewed MDM - Nausea/Vomiting/Diarrhea MDM Narrative Medical decision making narrative: Reassuring physical exam. Patient reports symptoms are typical of his IBS symptoms. He is managing with dicyclomine. Started on Zofran here. Emergency department precautions discussed Differential Diagnosis Differential diagnosis: Likely food poisoning Medical Records Attestation: I reviewed the patient's medical records. Discharge Plan Discharge Clinical Impression: Irritable bowel syndrome Qualifiers: Irritable bowel syndrome type: unspecified Qualified Code(s): K58.9 - Irritable bowel syndrome without diarrhea Patient Disposition: Home, Self-Care Condition: Stable Instructions: Antibiotic Form, Irritable Bowel Syndrome (ED) Patient Language: Slovenian Prescriptions: New ondansetron 4 mg tablet,disintegrating 4 mg PO Q6H PRN (Reason: nausea and vomiting) Qty: 30 0RF No Action finasteride 5 mg tablet 5 mg PO DAILY buspirone 30 mg tablet 30 mg PO BID (DME) FreeStyle [place] 2 [place] Misc See Rx Instructions .Route Qty: 1 0RF Rx Instructions: use As directed (DME) FreeStyle [place] 2 Sensor Kit See Rx Instructions .Route Qty: 1 0RF Rx Instructions: use As directed Trulicity 1.5 mg/0.5 mL pen injector 1.5 mg subcut WEEKLY Farxiga 10 mg PO DAILY Symbicort 2 puff inhalation DAILY albuterol 2 puff inhalation PRN magnesium oxide 400 mg PO DAILY (DME) blood-glucose meter Kit See Rx Instructions .ROUTE .MEDSUPPLY Qty: 1 0RF Rx Instructions: Use to check blood sugar once daily fasting losartan 50 mg tablet 50 mg PO DAILY Qty: 90 1RF Rx Instructions: take 1 tablet by oral route every day fenofibrate 160 mg tablet 160 mg PO DAILY Qty: 90 1RF indapamide 2.5 mg tablet 2.5 mg PO QAM Qty: 90 0RF rosuvastatin [Crestor] 20 mg tablet 20 mg PO DAILY Qty: 90 0RF omeprazole 40 mg capsule,delayed release(DR/EC) See Rx Instructions .ROUTE .COMPLEX Qty: 90 3RF Dose Instruction: TAKE 1 CAPSULE DAILY BEFORE A MEAL Rx Instructions: TAKE 1 CAPSULE DAILY BEFORE A MEAL dicyclomine 10 mg capsule See Rx Instructions .ROUTE .COMPLEX Qty: 360 7RF Dose Instruction: TAKE 1 TO 2 CAPSULES EVERY 6 HOURS NEEDED FOR ABDOMINAL PAIN Rx Instructions: TAKE 1 TO 2 CAPSULES EVERY 6 HOURS NEEDED FOR ABDOMINAL PAIN amitriptyline 25 mg tablet 25 mg PO QHS Qty: 90 3RF Follow-up/Referrals: Blaze Paulino MD [Primary Care Provider] - Stand Alone Forms: Work/School Release IP Time of Disposition: 15:01
[2024-10-18] MEDS: ONDANSETRON HCL ODT 4 MG TABLET PO (14:57)
== END 2024-10-18 15:05 | disposition home or self-care (01) ==
PROVIDERS: Emergency Provider Nurse Practitioner Family; PCP Emergency Medicine
DX: K58.9 Irritable bowel syndrome, unspecified (principal); I10 Essential (primary) hypertension; F17.210 Nicotine dependence, cigarettes, uncomplicated; Z79.899 Other long term (current) drug therapy
CPT/HCPCS: 99213; A9270; G0463

== ENCOUNTER 2024-11-23 12:53 | Emergency (ER) | payer BC, SELFPAY ==
--- NOTE | ~2024-11-23 | XR_ITS ---
EXAMINATION: XR chest 2V DATE: 11/23/2024 13:16 INDICATION: One week of productive cough TECHNIQUE: PA and lateral views of the chest were obtained. COMPARISON: Chest radiograph dated 10/13/2021 FINDINGS: The lungs remain clear with no focal airspace opacities, pulmonary edema, pleural effusion or pneumot horax. The cardiomediastinal silhouette is normal. Mild thoracic spondylosis. IMPRESSION: 1. No acute cardiopulmonary disease. Reviewed, dictated and finalized at location A.
--- NOTE | 2024-11-23 12:55 | ED.URI ---
HPI - URI/Sore Throat General Chief Complaint: Upper Respiratory Infection Stated Complaint: no taste,back pain, not eating,TITUS Time Seen by Provider: 11/23/24 12:54 Source: patient Mode of arrival: ambulatory Limitations: no limitations History of Present Illness HPI Narrative: Gregg is a 53-year-old male patient presenting to the clinic today with complaints productive cough with brown phlegm, nasal congestion, chest discomfort with taking deep breaths and coughing, no taste, decreased appetite, nausea, back pain, and headache MD elicited complaint: cough and nasal congestion Related Data Home Medications ?Medication ?Instructions ?Recorded ?Confirmed ?Last Taken ?Type albuterol 2 puff inhalation PRN sob 12/20/22 10/18/24 Unknown History allopurinol 100 mg tablet mg 11/23/24 Unknown History dapagliflozin propanediol 10 mg mg 11/23/24 Unknown History tablet (Farxiga) dulaglutide 3 mg/0.5 mL mg subcut 11/23/24 Unknown History subcutaneous pen injector (Trulicity) indapamide 2.5 mg tablet mg 11/23/24 Unknown History ondansetron 4 mg disintegrating mg 11/23/24 Unknown History tablet rosuvastatin 20 mg tablet mg 11/23/24 Unknown History Allergies Allergy/AdvReac Type Severity Reaction Status Date / Time No Known Allergies Allergy Verified 11/23/24 12:56 Review of Systems Review of Systems: Pertinent positives per HPI. Patient denies any fever, chills, rash, headache, visual changes, dizziness, cough, shortness of breath, chest pain, palpitations, nausea, vomiting, diarrhea, constipation, abdominal pain, or any urinary issues. [facility] Past Medical History Medical History IBS (irritable bowel syndrome) GERD (gastroesophageal reflux disease) Hx of adenomatous colonic polyps Tobacco dependence Obesity (BMI 30-39.9) Hemorrhoids Irritable bowel syndrome BPH (benign prostatic hyperplasia) Dyslipidemia Type 2 diabetes mellitus without complications Hyponatremia Polyarthralgia Benign hypertension (~03/2019) Anxiety GERD (gastroesophageal reflux disease) Unspecified osteoarthritis, unspecified site Hypokalemia Hypogonadism Diverticulitis of colon with perforation Degenerative disc disease Cervical spondylosis Gout History of diverticular abscess (~2004) Surgical History Surgical History S/P colostomy takedown 2006 History of hemorrhoidectomy 01/2021 History of partial colectomy 2004 - secondary to perforated diverticulitis History of incisional hernia repair 2006 Family History Family History Father Diabetes mellitus Social History Social History Smoking packs per day: 1 Smoking cigarettes per day: 20.0 Years smoked: 35 Smoking pack-years: 35.00 Smoking status: Current every day smoker Tobacco type: cigarettes Second hand tobacco smoke exposure: Yes Additional smoking assessment comments: consume 1 pack of cigarettes daily Alcohol intake: current Drinks per week: 48 Alcohol use details: beer Substance use: current Substance use type: marijuana Living arrangements: with family Gender identity (if verbalized by the patient): Male Spiritual care concerns: No Comments At the time of my signature, I reviewed and agree with the nursing past medical, surgical, social, and family history. There is no relevant family history pertinent to the patient complaint. Exam Narrative: General: Well-developed, well nourished, in no apparent distress Head: Normocephalic, atraumatic Eyes: Pupils equally round and reactive to light bilaterally, EOM intact, sclera and conjunctive clear, no discharge, lids normal Ears: TMs intact and clear, ear canals clear, no drainage, grossly hearing normal. Nose: Nares patent, clear nasal discharge, no inflammation, no sinus tenderness. Mouth: Oral pharynx without lesions or masses, good dentition, MMM. Postnasal drip Neck: Supple, trachea midline, no enlargement of anterior or posterior cervical nodes, no thyroid masses or goiter palpable. Cardio: Regular rate and rhythm, s1 and s2 normal, no murmur appreciated. Resp: Lung sounds diminished in the lower bases otherwise clear, no rhonchi, rales, wheezing or rubs Course Course Emergency Course: Portions of this record may have been created with voice recognition software. Level of Care: Express Care Visit Vital Signs Vital signs: Vital Signs Temperature 36.5 C 11/23/24 13:04 Pulse Rate 100 11/23/24 13:04 Respiratory Rate 16 11/23/24 13:04 Blood Pressure 114/81 11/23/24 13:04 Pulse Oximetry 99 11/23/24 13:04 Oxygen Delivery Room Air 11/23/24 13:04 Temperature 36.5 C 11/23/24 13:04 Pulse Rate 100 11/23/24 13:04 Respiratory Rate 16 11/23/24 13:04 Blood Pressure 114/81 11/23/24 13:04 Pulse Oximetry 99 11/23/24 13:04 Oxygen Delivery Room Air 11/23/24 13:04 Vital signs reviewed MDM - URI/Sore Throat MDM Narrative Medical decision making narrative: At the time of visit patient is resting comfortably on the exam table. Patient appears to be nontoxic. Labs: COVID testing was positive in the clinic today. Diagnostics: Chest x-ray was negative for any acute cardiopulmonary process. Plan: I suspect patient has COVID with COPD exacerbation. Prescription for doxycycline, Zofran, albuterol inhaler, and prednisone was sent to the pharmacy. Supportive measures were discussed with the patient and they voiced understanding discharge instructions and agrees to treatment plan. Return precautions reviewed Differential Diagnosis Differential diagnosis: Likely upper respiratory infection, otitis media, sinusitis, viral infection, bronchitis, influenza, pharyngitis and other (COVID) Lab Data Labs: Lab Results 11/23/24 Range/Units 13:15 POC SARS CoV-2 Ag Positive (Negative) Imaging Data Radiologist's impression: ITS Impressions Chest X-Ray 11/23/24 13:19 IMPRESSION: 1. No acute cardiopulmonary disease. Discharge Plan Discharge Clinical Impression: COVID-19, COPD exacerbation Patient Disposition: Home, Self-Care Condition: Stable Instructions: Antibiotic Form, COVID-19 (Coronavirus Disease 2019) (ED) Additional Instructions: Take prescription medications only as prescribed- albuterol inhaler, prednisone, and azithromycin Increase fluids and stay well hydrated Tylenol/motrin for pain/fever Flonase and OTC antihistamines as directed Vicks vapor rub to open sinuses Sinus rinses for congestion Cepacol spray, cough drops, throat lozenges, warm tea with honey/lemon, gargle salt water to soothe throat BRAT diet for diarrhea Clear liquids x 24 hours then advance as tolerated for nausea/vomiting Go to the ED if you develop a worsening in your condition- high fever not controlled by Tylenol or Motrin, dehydration, weakness, lethargy, shortness of breath, or chest pain. Follow up with your PCP in 3-5 days if symptoms persist. Patient Language: Khmer Prescriptions: New prednisone 20 mg tablet 40 mg PO DAILY 5 Days Qty: 10 0RF albuterol sulfate 90 mcg/actuation HFA aerosol inhaler 2 puff inhalation Q4-6H PRN (Reason: shortness of breath or wheezing) 30 Days Qty: 8.5 0RF doxycycline monohydrate 100 mg capsule 100 mg PO BID 7 Days Qty: 14 0RF ondansetron 4 mg tablet,disintegrating 4 mg PO Q6H PRN (Reason: nausea and vomiting) 3 Days Qty: 12 0RF No Action indapamide 2.5 mg tablet allopurinol 100 mg tablet ondansetron 4 mg tablet,disintegrating rosuvastatin 20 mg tablet dapagliflozin propanediol [Farxiga] 10 mg tablet Trulicity 3 mg/0.5 mL pen injector SUBCUT (DME) FreeStyle [place] 2 [place] Misc See Rx Instructions .Route Qty: 1 0RF Rx Instructions: use As directed (DME) FreeStyle [place] 2 Sensor Kit See Rx Instructions .Route Qty: 1 0RF Rx Instructions: use As directed albuterol 2 puff inhalation PRN (DME) blood-glucose meter Kit See Rx Instructions .ROUTE .MEDSUPPLY Qty: 1 0RF Rx Instructions: Use to check blood sugar once daily fasting omeprazole 40 mg capsule,delayed release(DR/EC) See Rx Instructions .ROUTE .COMPLEX Qty: 90 3RF Dose Instruction: TAKE 1 CAPSULE DAILY BEFORE A MEAL Rx Instructions: TAKE 1 CAPSULE DAILY BEFORE A MEAL Follow-up/Referrals: lBaze Paulino MD [Primary Care Provider] - Stand Alone Forms: Work/School Release IP Time of Disposition: 13:26 Quality NIHSS Nursing Documentation ED NIHSS nursing documentation: reviewed/agree
[2024-11-23 13:04] VITALS: BP 114/81; PULSE 100; RESP 16; TEMP 36.5; O2SAT 99
[2024-11-23 13:28] LABS: EDCOVIDSCREEN Positive (Negative)
== END 2024-11-23 13:30 | disposition home or self-care (01) ==
PROVIDERS: Emergency Provider Nurse Practitioner Family; PCP Emergency Medicine
DX: U07.1 COVID-19 (principal); J44.1 Chronic obstructive pulmonary disease with (acute) exacerbation; F17.210 Nicotine dependence, cigarettes, uncomplicated; F12.90 Cannabis use, unspecified, uncomplicated; K21.9 Gastro-esophageal reflux disease without esophagitis; E66.9 Obesity, unspecified; Z68.28 Body mass index [BMI] 28.0-28.9, adult; N40.0 Benign prostatic hyperplasia without lower urinary tract symptoms; E78.5 Hyperlipidemia, unspecified; E11.9 Type 2 diabetes mellitus without complications; Z79.85 Long-term (current) use of injectable non-insulin antidiabetic drugs; I10 Essential (primary) hypertension; M19.90 Unspecified osteoarthritis, unspecified site; M10.9 Gout, unspecified; K58.9 Irritable bowel syndrome, unspecified
CPT/HCPCS: 71046; 87426; 99213; G0463

== ENCOUNTER 2025-01-02 12:39 | Emergency (ER) | payer BC, SELFPAY ==
--- NOTE | ~2025-01-02 | CT_ITS ---
EXAMINATION: CT abdomen pelvis w con DATE: 01/02/2025 13:49 INDICATION: Right lower quadrant abdominal pain TECHNIQUE: Computed tomography (CT) of the abdomen and pelvis was performed with 100 mL Omnipaque-350 intravenous contrast. Automated exposure control and iterative reconstruction technique were employe d. The dose-length product was 574.50 mGy-cm. COMPARISON: None FINDINGS: Lung bases are clear. Heart size is normal. No pericardial or pleural effusion. Focal hepatic steatos is at the ligamentum teres. Gallbladder, spleen, pancreas and bilateral adrenal glands are normal. Un changed mild bilateral perinephric stranding. 11 mm left renal cyst. Small amount of atherosclerotic calcifications at the bilateral renal filipe. There are a couple surgical clips near the inferior anter ior left pararenal space. Postoperative change of prior umbilical hernia repair. No dilated bowel to suggest obstruction. The appendix is not visualized. No pericecal inflammatory change to suggest acut e appendicitis. Postoperative change of prior partial colectomy with anastomotic suture line at the d istal sigmoid colon. Decompressed bladder is unremarkable. No free intraperitoneal gas or fluid. No p athologically enlarged abdominal or pelvic lymphadenopathy. Chronic appearing mild anterior wedging a t T11 and T12. Moderate lower thoracic and mild to moderate lower lumbar predominant spondylosis. 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 IMPRESSION: 1. No acute intra-abdominal/pelvic process. Reviewed, dictated and finalized at location B.
[2025-01-02 12:57] VITALS: BP 126/78; PULSE 99; RESP 18; TEMP 36.4; O2SAT 99
--- NOTE | 2025-01-02 13:14 | ED_ITS ---
HPI - Abdominal Pain General Chief Complaint: Abdominal Pain <Kiana Batres APRN - Last Filed: 01/02/25 13:16> Stated Complaint: abd pain, I need my hernia checked <Kiana Batres APRN - Last Filed: 01/02/25 13:16> Time Seen by Provider: 01/02/25 13:00 <Kiana Batres APRN - Last Filed: 01/02/25 13:16> Focused HPI: Patient is a 54-year-old male who presents to the ER with complaints right lower quadrant pain due to a hernia. He reports he has had the hernia for a couple of months but the pain has increased. Patient reports the hernia ?pops out? when he stands up and he has to push it back in. He reports his last bowel movement was approximately 2-3 days ago, which is a long range for him. Patient denies any recent fevers, chest pain, shortness of breath, urinary symptoms, or gastric reflux. He denies any pertinent medical history relevant to this ER visit. GENERAL: Well-appearing, well-nourished, and in no acute distress. HEAD: Normocephalic, atraumatic. CHEST: Clear to auscultation. ?No respiratory distress. HEART: Regular rate and rhythm.? NEURO: ?Alert and oriented x3. Patient screened in triage and initial orders placed.? ?Additional care and disposition to be based upon?diagnostic testing and treatment. <Kiana Batres APRN - Last Filed: 01/02/25 13:16> History of Present Illness HPI narrative: Agree with HPI. Passing gas and having bowel movements. Does have some mild constipation. Were causes him to have his hernia go in an out approximately 60 times a day. <Julian Rivera MD - Last Filed: 01/02/25 15:44> Related Data Home Medications: Home Medications ?Medication ?Instructions ?Recorded ?Confirmed ?Last Taken ?Type albuterol 2 puff inhalation PRN sob 12/20/22 10/18/24 Unknown History allopurinol 100 mg tablet mg 11/23/24 Unknown History dapagliflozin propanediol 10 mg mg 11/23/24 Unknown History tablet (Farxiga) dulaglutide 3 mg/0.5 mL mg subcut 11/23/24 Unknown History subcutaneous pen injector (Trulicity) indapamide 2.5 mg tablet mg 11/23/24 Unknown History ondansetron 4 mg disintegrating mg 11/23/24 Unknown History tablet rosuvastatin 20 mg tablet mg 11/23/24 Unknown History <Kiana Batres APRN - Last Filed: 01/02/25 13:16> Allergies/Adverse Reactions: Allergies Allergy/AdvReac Type Severity Reaction Status Date / Time No Known Allergies Allergy Verified 01/02/25 13:00 <Kiana Batres APRN - Last Filed: 01/02/25 13:16> Review of Systems 2 Review of Systems: All systems reviewed & are unremarkable except as noted in HPI and below <Julian Rivera MD - Last Filed: 01/02/25 15:44> Constitutional: Constitutional: Reports no additional constitutional complaints <Julian Rivera MD - Last Filed: 01/02/25 15:44> Cardiovascular: Cardiovascular: Reports no additional cardiovascular complaints <Julian Rivera MD - Last Filed: 01/02/25 15:44> Respiratory: Respiratory: Reports no additional respiratory complaints < Julian Rivera MD - Last Filed: 01/02/25 15:44> Gastrointestinal: Gastrointestinal: Reports no additional gastrointestinal complaints <Julian Rivera MD - Last Filed: 01/02/25 15:44> [facility] Past Medical History Medical History: Medical History IBS (irritable bowel syndrome) GERD (gastroesophageal reflux disease) Hx of adenomatous colonic polyps Tobacco dependence Obesity (BMI 30-39.9) Hemorrhoids Irritable bowel syndrome BPH (benign prostatic hyperplasia) Dyslipidemia Type 2 diabetes mellitus without complications Hyponatremia Polyarthralgia Benign hypertension (~03/2019) Anxiety GERD (gastroesophageal reflux disease) Unspecified osteoarthritis, unspecified site Hypokalemia Hypogonadism Diverticulitis of colon with perforation Degenerative disc disease Cervical spondylosis Gout History of diverticular abscess (~2004) <Kiana Batres APRN - Last Filed: 01/02/25 13:16> Surgical History Surgical History: Surgical History S/P colostomy takedown 2006 History of hemorrhoidectomy 01/2021 History of partial colectomy 2004 - secondary to perforated diverticulitis History of incisional hernia repair 2006 <Kiana Batres APRN - Last Filed: 01/02/25 13:16> Family History Family History: Family History Father Diabetes mellitus <Kiana Batres APRN - Last Filed: 01/02/25 13:16> Social History Social History: Social History Smoking packs per day: 1 Smoking cigarettes per day: 20.0 Years smoked: 35 Smoking pack-years: 35.00 Smoking status: Current every day smoker Tobacco type: cigarettes Second hand tobacco smoke exposure: Yes Additional smoking assessment comments: consume 1 pack of cigarettes daily Alcohol intake: current Drinks per week: 48 Alcohol use details: beer Substance use: current Substance use type: marijuana Living arrangements: with family Gender identity (if verbalized by the patient): Male Spiritual care concerns: No <Kiana Batres APRN - Last Filed: 01/02/25 13:16> Exam 2 Narrative: GENERAL: Well-appearing, well-nourished, and in no acute distress. HEAD: Normocephalic, atraumatic. ENT: Mucous membranes moist. CHEST: Clear to auscultation. No respiratory distress. HEART: Regular rate and rhythm. Normal peripheral pulses. ABDOMEN: Soft, nontender, nondistended. defect right inguinal region without protruding bowel. EXTREMITIES: Normal range of motion. No edema. NEURO: Alert and oriented x3. PSYCH: Normal mood and affect. <Julian Rivera MD - Last Filed: 01/02/25 15:44> Course Course Emergency Course: Discussed hernia belts. Discussed using Colace for mild constipation. Follow-up with general surgery for further evaluation treatment. Patient declines light duty note for work. <Julian Rivera MD - Last Filed: 01/02/25 15:44> Vital Signs Vital signs: Vital Signs Temperature 97.6 F 01/02/25 12:57 Pulse Rate 99 01/02/25 12:57 Respiratory Rate 18 01/02/25 12:57 Blood Pressure 126/78 01/02/25 12:57 Pulse Oximetry 99 01/02/25 12:57 Oxygen Delivery Room Air 01/02/25 12:57 Temperature 97.6 F 01/02/25 12:57 Pulse Rate 94 01/02/25 15:28 Respiratory Rate 17 01/02/25 15:28 Blood Pressure 126/75 01/02/25 15:28 Pulse Oximetry 97 01/02/25 15:28 Oxygen Delivery Room Air 01/02/25 12:57 <Kiana Batres, BLUEPRINT CUTTER - Last Filed: 01/02/25 13:16> Vital Signs Temperature 97.6 F 01/02/25 12:57 Pulse Rate 99 01/02/25 12:57 Respiratory Rate 18 01/02/25 12:57 Blood Pressure 126/78 01/02/25 12:57 Pulse Oximetry 99 01/02/25 12:57 Oxygen Delivery Room Air 01/02/25 12:57 Temperature 97.6 F 01/02/25 12:57 Pulse Rate 94 01/02/25 15:28 Respiratory Rate 17 01/02/25 15:28 Blood Pressure 126/75 01/02/25 15:28 Pulse Oximetry 97 01/02/25 15:28 Oxygen Delivery Room Air 01/02/25 12:57 <Julian Rivera MD - Last Filed: 01/02/25 15:44> MDM - Abdominal Pain Lab Data Result diagrams: 01/02/25 13:38 01/02/25 13:43 <Kiana Batres, BLUEPRINT CUTTER - Last Filed: 01/02/25 13:16> Labs: Lab Results 01/02/25 01/02/25 Range/Units 13:38 13:43 WBC 9.7 (4.5-10.0) K/mm3 RBC 5.43 (4.6-6.20) M/mm3 Hgb 16.9 (14.0-18.0) g/dL Hct 49.4 (42.0-52.0) % MCV 91.0 (80-100) fl MCH 31.1 (26-34) pg MCHC 34.2 (32-36) g/dl RDW 14.5 (11.5-14.5) % Plt Count 289 (150-375) k/mm3 MPV 10.5 H (7.4-10.4) fl Immature Gran % (Auto) 0.3 (0-0.5) % Neut % (Auto) 74.7 H (45.5-73.1) % Lymph % (Auto) 14.8 L (18.3-44.2) % [place] % (Auto) 9.0 H (2.6-8.5) % Eos % (Auto) 0.8 (0-4.4) % Baso % (Auto) 0.4 (0.2-1.2) % Lymph # (Auto) 1.43 (0.9-3.2) K/mm3 [place] # (Auto) 0.9 H (0.1-0.6) K/mm3 Eos # (Auto) 0.1 (0-0.3) K/mm3 Baso # (Auto) 0.0 (0.0-0.1) K/mm3 Abs Immat Gran (auto) 0.03 (0.00-0.031) K/mm3 Absolute Neuts (auto) 7.2 H (1.3-6.7) K/mm3 Absolute Nucleated RBC 0.000 (0.0-0.012) K/mm3 Nucleated RBC % 0.0 (0.0-0.2) % Sodium 133 L (137-145) mmol/L Potassium 3.1 L (3.4-5.0) mmol/L Chloride 91 L (98-107) mmol/L Carbon Dioxide 30 (22-30) mmol/L Anion Gap 12 (4-12) mmol/L BUN 10 (9-20) mg/dL Creatinine 0.88 1.00 (0.7-1.3) mg/dL Estim Creat Clear Calc 86 76 ml/min Estimated GFR > 60 > 60 (59 - ) Glucose 110 (65-110) mg/dL Calcium 9.0 (8.4-10.2) mg/dL Total Bilirubin 0.9 (0.2-1.3) mg/dL AST 29 (17-59) U/L ALT 22 (6-50) U/L Alkaline Phosphatase 106 (38-126) U/L Total Protein 7.0 (6.3-8.2) g/dL Albumin 4.7 (3.5-5.1) g/dL Lipase 71 (23-300) U/L Urine Color Yellow (Yellow) Urine Appearance Clear (Clear) Urine pH 7.0 (5.0-9.0) Ur Specific [place] 1.020 (1.001-1.035) Urine Protein Trace (Negative) mg/dL Urine Glucose (UA) 2+ H (Negative) mg/dL Urine Ketones 1+ H (Negative) mg/dL Ur Blood (Man) Negative (Negative) Urine Nitrate Negative (Negative) Urine Bilirubin Negative (Negative) Urine Urobilinogen 1.0 (<2.0) mg/dL Leukocyte Esterase Rfl Negative (Negative) TEJAL/UL Urine RBC 0-2 (0-2) /hpf Urine WBC 0-5 (0-3) /hpf Ur Squamous Epith Cells None seen (Few) /hpf Urine Bacteria None seen /hpf Urine Casts 0-2 <Kiana Batres, BLUEPRINT CUTTER - Last Filed: 01/02/25 13:16> Lab Results 01/02/25 01/02/25 Range/Units 13:38 13:43 WBC 9.7 (4.5-10.0) K/mm3 RBC 5.43 (4.6-6.20) M/mm3 Hgb 16.9 (14.0-18.0) g/dL Hct 49.4 (42.0-52.0) % MCV 91.0 (80-100) fl MCH 31.1 (26-34) pg MCHC 34.2 (32-36) g/dl RDW 14.5 (11.5-14.5) % Plt Count 289 (150-375) k/mm3 MPV 10.5 H (7.4-10.4) fl Immature Gran % (Auto) 0.3 (0-0.5) % Neut % (Auto) 74.7 H (45.5-73.1) % Lymph % (Auto) 14.8 L (18.3-44.2) % [place] % (Auto) 9.0 H (2.6-8.5) % Eos % (Auto) 0.8 (0-4.4) % Baso % (Auto) 0.4 (0.2-1.2) % Lymph # (Auto) 1.43 (0.9-3.2) K/mm3 [place] # (Auto) 0.9 H (0.1-0.6) K/mm3 Eos # (Auto) 0.1 (0-0.3) K/mm3 Baso # (Auto) 0.0 (0.0-0.1) K/mm3 Abs Immat Gran (auto) 0.03 (0.00-0.031) K/mm3 Absolute Neuts (auto) 7.2 H (1.3-6.7) K/mm3 Absolute Nucleated RBC 0.000 (0.0-0.012) K/mm3 Nucleated RBC % 0.0 (0.0-0.2) % Sodium 133 L (137-145) mmol/L Potassium 3.1 L (3.4-5.0) mmol/L Chloride 91 L (98-107) mmol/L Carbon Dioxide 30 (22-30) mmol/L Anion Gap 12 (4-12) mmol/L BUN 10 (9-20) mg/dL Creatinine 0.88 1.00 (0.7-1.3) mg/dL Estim Creat Clear Calc 86 76 ml/min Estimated GFR > 60 > 60 (59 - ) Glucose 110 (65-110) mg/dL Calcium 9.0 (8.4-10.2) mg/dL Total Bilirubin 0.9 (0.2-1.3) mg/dL AST 29 (17-59) U/L ALT 22 (6-50) U/L Alkaline Phosphatase 106 (38-126) U/L Total Protein 7.0 (6.3-8.2) g/dL Albumin 4.7 (3.5-5.1) g/dL Lipase 71 (23-300) U/L Urine Color Yellow (Yellow) Urine Appearance Clear (Clear) Urine pH 7.0 (5.0-9.0) Ur Specific [place] 1.020 (1.001-1.035) Urine Protein Trace (Negative) mg/dL Urine Glucose (UA) 2+ H (Negative) mg/dL Urine Ketones 1+ H (Negative) mg/dL Ur Blood (Man) Negative (Negative) Urine Nitrate Negative (Negative) Urine Bilirubin Negative (Negative) Urine Urobilinogen 1.0 (<2.0) mg/dL Leukocyte Esterase Rfl Negative (Negative) TEJAL/UL Urine RBC 0-2 (0-2) /hpf Urine WBC 0-5 (0-3) /hpf Ur Squamous Epith Cells None seen (Few) /hpf Urine Bacteria None seen /hpf Urine Casts 0-2 <Julian Rivera MD - Last Filed: 01/02/25 15:44> Imaging Data Radiologist's impression: ITS Impressions Abdomen/Pelvis CT 01/02/25 13:57 IMPRESSION: 1. No acute intra-abdominal/pelvic process. <Kiana Batres APRN - Last Filed: 01/02/25 13:16> ITS Impressions Abdomen/Pelvis CT 01/02/25 13:57 IMPRESSION: 1. No acute intra-abdominal/pelvic process. <Julian Rivera MD - Last Filed: 01/02/25 15:44> Discharge Plan Discharge Clinical Impression: Inguinal hernia <Kiana Batres APRN - Last Filed: 01/02/25 13:16> Patient Disposition: Home <Kiana Batres APRN - Last Filed: 01/02/25 13:16> Condition: Stable <Kiana Batres APRN - Last Filed: 01/02/25 13:16> Instructions: Inguinal Hernia (ED) <Kiana Batres APRN - Last Filed: 01/02/25 13:16> Additional Instructions: Obtain a hernia belt and wear it while working. Use Colace to decrease any struggle with bowel movements. Return the ER if you have severe pain in your right groin, you cannot reduce her hernia, you have additional concerns. <Kiana Batres APRN - Last Filed: 01/02/25 13:16> Patient Language: Romansh <Kiana Batres APRN - Last Filed: 01/02/25 13:16> Prescriptions: New docusate sodium [Colace] 100 mg capsule 100 mg PO BID Qty: 14 0RF No Action indapamide 2.5 mg tablet allopurinol 100 mg tablet ondansetron 4 mg tablet,disintegrating rosuvastatin 20 mg tablet dapagliflozin propanediol [Farxiga] 10 mg tablet Trulicity 3 mg/0.5 mL pen injector SUBCUT prednisone 20 mg tablet 40 mg PO DAILY 5 Days Qty: 10 0RF albuterol sulfate 90 mcg/actuation HFA aerosol inhaler 2 puff inhalation Q4-6H PRN (Reason: shortness of breath or wheezing) 30 Days Qty: 8.5 0RF doxycycline monohydrate 100 mg capsule 100 mg PO BID 7 Days Qty: 14 0RF ondansetron 4 mg tablet,disintegrating 4 mg PO Q6H PRN (Reason: nausea and vomiting) 3 Days Qty: 12 0RF (DME) FreeStyle [place] 2 [place] Misc See Rx Instructions .Route Qty: 1 0RF Rx Instructions: use As directed (DME) FreeStyle [place] 2 Sensor Kit See Rx Instructions .Route Qty: 1 0RF Rx Instructions: use As directed albuterol 2 puff inhalation PRN (DME) blood-glucose meter Kit See Rx Instructions .ROUTE .MEDSUPPLY Qty: 1 0RF Rx Instructions: Use to check blood sugar once daily fasting omeprazole 40 mg capsule,delayed release(DR/EC) See Rx Instructions .ROUTE .COMPLEX Qty: 90 3RF Dose Instruction: TAKE 1 CAPSULE DAILY BEFORE A MEAL Rx Instructions: TAKE 1 CAPSULE DAILY BEFORE A MEAL <Kiana Batres, [place] - Last Filed: 01/02/25 13:16> Follow-up/Referrals: Blaze Paulino MD [Primary Care Provider] - Drew Swain DO [Physician] - 1 Week <Kiana Batres APRN - Last Filed: 01/02/25 13:16>
--- OUTSIDE RECORDS SUMMARY | 2025-01-02 13:29 | XMS_ITS | Clinical Summary ---
Author Organization [facility] Address [facility] [place] [address] Care Team Providers Care Culture Media Laboratory Assistant Name Role Phone Unavailable Primary Care Provider Unavailabl e Social History Tobacco Use Types Packs/Day Years Used Date Smoking Tobacco: Never Assessed Sex and Gender Information Value Date Recorded Sex Assigned at Not on file Legal Sex Male 4:11 PM CDT Gender Identity Not on file Sexual Orientation Not on file Plan of Treatment Health Maintenance Due Date Last Done Comments Colorectal Cancer Screening Colonoscopy (10 Years) 1969 Annual Physical 1972 Hepatitis C 12/10/1987 DTaP, Tdap and Td Vaccines ( 1 - Tdap) 1988 Hepatitis B Vaccines (1 of 3 - 19+ 3-dose series) 1988 Pneumococcal Vaccine: 50+ Ye ars (1 of 1 - PCV) 12/10/2019 Zoster Vaccines (1 of 2) 12/10/2019 COVID-19 Vaccine (2023-2 5 season) 2024 Meningococcal B Vaccine Aged Out No l onger eligible based on patient's age to complete this topic Meningococcal Vaccine Aged Out No tati madison eligible based on patient's age to complete this topic RSV Immunizations Under 20 Months Aged Out No longer eligible based on patient's age to complete this topic
--- OUTSIDE RECORDS SUMMARY | 2025-01-02 13:29 | XMS_ITS | Patient Health Record ---
Author Organization [facility] ([address]) Address [address] [place] [address] Care Team Providers Care Plastic Machine Operator Name Role Phone Blaze Paulino Primary Care Provider Aaliyah Mo Unavailable [phone] Reason For Referral No Information Problems Problem Type SNOMED Code ICD Code Onset Dates Problem Status W/U Status Risk Notes Problem Degeneration of cervical intervertebral disc (46201804) Other cervical disc degeneration, unspecified cervical region (M50.30) Active confirmed Problem Cervical radiculopathy (84495809) Radiculopathy, cervical region (M54.12) Active confirmed Problem Cervicalgia (84093830) Cervicalgia (M54.2) Active confirmed Problem Pain in right arm (534846570) Pain in right arm (M79.601) Active confirmed Problem Pain in left arm (860298433) Pain in left arm (M79.602) Active confirmed Plan Of Treatment No Information Insurance Providers Payer Name Payer Address Payer Phone Subscriber Number Group Number Insured Name Patient Relationship to Insured Coverage Start Date Coverage End Date [facility] [address] [place] [address] [id number] Alessio Iyer Self - patient is the insured 3 Medical (General) History Medical History History ICD Code DM2 COPD Cervical DDD
--- OUTSIDE RECORDS SUMMARY | 2025-01-02 13:29 | XMS_ITS | Clinical Summary ---
Author Organization [facility] Address [address] [place] [address] Phone Care Team Providers Care Quarry Extraction Worker Name Role Phone Blaze Paulino MD Primary Care Provider [phone] Allergies No known active allergies Medications indapamide (LOZOL) 2.5 MG tablet indapamide 2.5 mg tablet Active losartan (COZAAR) 50 MG tablet losartan 50 mg tablet Active omeprazole (PriLOSEC) [address] capsule omeprazole 40 mg capsule,delayed release Active rosuvastatin (CRESTOR) 20 MG tablet rosuvastatin 20 mg tablet Active budesonide-form oterol (SYMBICORT) 80-4.5 MCG/ACT inhaler Inhale 2 puffs 2 (two) times a day Active busPIRone (BUSPAR) 30 MG tablet Take 30 mg by mouth 2 (two) times a day Active hydrOXYzine (VISTARIL) 25 MG capsule Take 25 mg by mouth if needed for itching Active allopurinol (ZYLOPRIM) 100 MG tablet Take 100 mg by mouth 1 (one) time each day Active Dulaglutide (Trulicity) 1.5 MG/0.5ML solution pen-injector Inject 1.5 mg under the skin per week Active Farxiga 10 MG tablet TAKE 1 TABLET DAILY 90 tablet 3 5 Active Active Problems Problem Noted Date Diagnosed Date Chronic kidney disease, stage 2 (mild) 3 Type 2 diabetes mellitus 03/10/2022 Gout associated problem 03/10/2022 Essential hypertension Resolved Problems Problem Noted Date Diagnosed Date Resolved Date Stage 3 chronic kidney disease 03/10/2022 12/23/2022 Serum creatinine raised 05/06 Renal insufficiency 05/21/20 22 Chronic obstructive pulmonary disease 05/21/2022 Encounters Date Type Department Care Team Description 10/22/2024 Refill [facility] [address] [facility] [address] [place] [address] Sarah Corey NP from Last 3 Months Family History Medical History Relation Comments Diabetes Father Hypertension Father Diabetes Mother Hypertension Mother Relation Status Comments Father Mother Social History Tobacco Use Types Packs/Day Years Used Date Smoking Tobacco: Every Day Cigarettes 1 35 Smokeless Tobacco: Never Tobacco Cessation:Ready to Q uit: Not Asked; Counseling Given: Not Answered Alcohol Use Standard Drinks/Week Comments Yes 0 (1 standard drink = 0.6 oz pur e alcohol) socially Sex and Gender Information Value Date Recorded Sex Assigned at Not on file Legal Sex Male 10:35 AM MDT Gender Identity Not on file Sexual Orientation Not on file Last Filed Vital Signs Vital Sign Reading Time Taken Comments Blood Pressure 134/82 10/27/2023 9:04 AM TRAFFIC WORKFORCE REPRESENTATIVE Pulse 102 10/27/2023 9:04 AM TRAFFIC WORKFORCE REPRESENTATIVE Temperature - - Respiratory Rate - - Oxygen Saturation 94% 04/28/2023 8:50 AM CDT Inhaled Oxygen Concentration - - Weight 93.9 kg (207 lb) 10/27/2023 9:04 AM TRAFFIC WORKFORCE REPRESENTATIVE Height 172.7 cm (5' 8 ) 10/27/2023 9:04 AM TRAFFIC WORKFORCE REPRESENTATIVE Body Mass Index 31.47 10/27/2023 9:04 AM TRAFFIC WORKFORCE REPRESENTATIVE Plan of Treatment Upcoming Encounters Date Type Department Care Team ([facility] Contact Info) Description 01/03/2025 9:40 AM CDT Office Visit [facility] [address] [facility] [address] [place] [address] Sarah Corey NP [address] [address] Health Maintenance Due Date Last Done Comments Diabetic Foot Exam 12/10/1979 Ophthalmology Exam 12/10/1979 Pneumococcal PPSV23 Highest Risk Adult (1 of 3 - PCV13 ) 1988 Influenza Vaccine (Season Ended) 2025 Insurance [place] Care Teams Quarry Extraction Worker Relationship Specialty Start Date End Date Blaze Paulino MD PCP - General 11/18/21
--- OUTSIDE RECORDS SUMMARY | 2025-01-02 13:29 | XMS_ITS | Clinical Summary ---
Author Organization [facility] Address [address] [place] [address] Care Team Providers Care Home Health Occupational Therapist Name Role Phone Blaze Paulino MD Primary Care Provider [phone] Allergies No known active allergies Medications budesonide-form oteroL (SYMBICORT) 80-4.5 mcg/actuation inhaler Inhale 2 puffs 2 (two) times a day Active busPIRone (BUSPAR) 30 mg tablet Take 1 tablet (30 mg total) by mouth 2 (two) times a day Active indapamide (LOZOL) 2.5 mg tablet indapamide 2.5 mg tablet Active losartan (COZAAR) 50 mg tablet losartan 50 mg tablet Active omeprazole (PriLOSEC) 40 mg capsule omeprazole 40 mg capsule,delayed release Active rosuvastatin (CRESTOR) 20 mg tablet rosuvastatin 20 mg tablet Active allopurinoL (ZYLOPRIM) 100 mg tablet Take 1 tablet (100 mg total) by mouth daily 2 Active BD Ultra-Fine Mini Pen Needle 31 gauge x 16 needle USE 1 ONCE DAILY 2 Active Tdap (Boostrix Tdap) 2.5-8-5 Lf-mcg-Lf/0.5mL vaccine Active Farxiga 10 mg tablet 2 Active albuterol (PROAIR DIGIHALER) 90 mcg/actuation inhaler every 4 hours Active blood-glucose meter misc OneTouch Ultra2 Meter Active hydrOXYzine (ATARAX) 25 mg tablet Take by mouth 3 (three) times a day as needed 2 Active gabapentin (NEURONTIN) 300 mg capsule Take 1 capsule (300 mg total) by mouth 4 (four) times a day 3 Active Trulicity 3 mg/0.5 mL pen injectorIndicat ions:type 2 diabetes mellitus Inject 0.5 mL (3 mg total) under the skin every 7 days E11.65 6 mL 4 4 Active FreeStyle Neville 3 Sensor device USE 1 SENSOR CONTINUOUSLY CHANGE EVERY 14 DAYS 9 each 3 4 Active Active Problems Problem Noted Date Diagnosed Date Hypertrophy of nasal turbinates 05/17/2024 Chronic maxillary sinusitis 05/17/2024 Cervical radiculopathy 12/20/2023 Cervicalgia 12/20/2023 Degeneration of cervical intervertebral disc Essential hypertension 12/20/2023 Chronic obstructive pulmonary disease 12/15/2023 SOB (shortness of breath) 12/15/2023 Chronic pansinusitis 10/25/2023 Assessment & Plan (10/25/2023 12:27 PM GLOBAL CHIEF EXPERIENCE OFFICER): He has Pretty significant sinusitis on his scan that was done in January of last year. He also has not active infection now. I am recommending that we treat the active infection. I think he probably needs sinus surgery and I am recommending a new CT scan to see if there is any significant changes that need to be addressed. He understands. He would like to proceed with that also. Mixed diabetic hyperlipidemi a associated with type 2 diabetes mellitus 02/21/2023 Assessment & Plan (10/11/2023 1:06 PM GLOBAL CHIEF EXPERIENCE OFFICER): This is a chronic condition which is not at goal of LDL less than 70 Continue rosuvastatin, fenofibrate Encouraged to eat healthy, include fresh fruits and vegetables daily and avoid eating fried foods more than once per week. Encouraged to take medications as prescribed. Sensorineural hearing loss ( SNHL) of right ear with restricted hearing of left ear 01/04/2023 Tinnitus of both ears 01/04/2023 Deviated nasal septum 01/04/2023 Assessment & Plan (10/25/2023 12:26 PM GLOBAL CHIEF EXPERIENCE OFFICER): He does have a severely deviated nasal septum and I am recommending a septoplasty to correct this. Also recommended an inferior turbinectomy. I discussed the risk of a septoplasty with and without turbinectomy with the patient. There is a risk of continued nasal obstruction, bleeding, septal perforation, permanent anosmia. Also risk of inadequate correction which could result in continued nasal obstruction symptoms. He understands. He has no questions. He would like to proceed with this. Nasal obstruction 01/04/2023 Assessment & Plan (10/25/2023 12:34 PM GLOBAL CHIEF EXPERIENCE OFFICER): This is likely due to the deviated nasal septum and inferior turbinates and combination with the chronic sinus disease. Chronic kidney disease, stage 2 (mild) 3 Smoker 05/18/2022 Assessment & Plan (05/18/2022 12:57 PM CDT): This is a chronic condition which is not improving Discussed use of patches/ lozenge/gum Will consider at and discuss at next appointment States he has tried everything to quit smoking Type 2 diabetes mellitus wit h stage 2 chronic kidney disease, with long-term current use of insulin 03/10/2022 Assessment & Plan (10/11/2023 1:25 PM GLOBAL CHIEF EXPERIENCE OFFICER): This is a chronic condition which is at goal of less than 7%. Personally reviewed most recent A1c - Lab Results Component Value Date HGBA1C 5.8 10/11/2023 Personally reviewed POC blood sugar- at goal 80-180 Lab Results Component Value Date POCGLU 117 10/11/2023 Medication- continue Farxiga 10 mg daily, trulicity 1.5mg weekly Monitor blood sugar 2 times a day. Encouraged annual eye exam. Monofilament foot exam completed. protective senses intact loss of protective senses. Treated with Gabapentin/Lyrica Personally reviewed CMP eGFR- 83 Kidney function- abnormal Urine microalbumin/creatinine ratio - not at goal <30 treated with losartan B/P today- not at goal of <140/90. continue losartan Personally reviewed lipid panel. Not at Goal of less than 70. Continue rosuvastatin fenofibrate Assessment & Plan (02/21/2023 4:54 PM CDT): This is a chronic condition which is at goal of less than 7%. Personally reviewed most recent A1c - Lab Results Component Value Date HGBA1C 6.0 02/21/2023 Personally reviewed POC blood sugar- at goal 80-180 Lab Results Component Value Date POCGLU 104 02/21/2023 Medication- Continue Farxiga 10 mg daily, trulicity 1.5mg weekly Monitor blood sugar continuously with sensor. Encouraged annual eye exam. Monofilament foot exam completed. Diminished protective senses Personally reviewed CMP eGFR-83 Kidney function- normal Urine microalbumin/creatinine ratio - not at goal <30 not treated with laila/arb B/P today- at goal of <140/90. Personally reviewed lipid panel. Not at Goal of less than 70. Continue fenofibrate, indapamide, rosuvastatin. Assessment & Plan (11/10/2022 2:33 PM GLOBAL CHIEF EXPERIENCE OFFICER): This is a chronic condition which is at goal of less than 7% Personally reviewed most recent A1c - Lab Results Component Value Date HGBA1C 6.1 11/10/2022 Personally reviewed POC blood sugar- 150 at goal 80-180 Medication- Farxiga 10 mg daily and Trulicity 1.5 mg weekly. Stop metformin 500 mg b.i.d.. since it is a twice a day medication. He reports missing the second dose most days anyway. Monitor blood sugar 2 times a day. Encouraged annual eye exam. Monofilament foot exam completed, protective senses diminished. Urine microalbumin/creatinine ratio -not at goal <30. treated with losartan and indapamide, Personally reviewed : GFR- 83 Kidney function- abnormal B/P today- at goal. Goal is <140/90, continue on losartan Personally reviewed lipid panel. Close to Goal of less than 70. Continue on rosuvastatin/ fenofibrate Assessment & Plan (07/13/2022 2:49 PM GLOBAL CHIEF EXPERIENCE OFFICER): This is a chronic condition which is at goal of less than 7% Personally reviewed most recent A1c - Lab Results Component Value Date HGBA1C 6.6 05/18/2022 goal less than 7% Personally reviewed POC blood sugar- 158 at goal 80-180 Medication- Farxiga 10 mg daily, metformin 500 mg b.i.d.. Trulicity 1.5 mg weekly. Monitor blood sugar to times a day. Encouraged annual eye exam. Monofilament foot exam completed, protective senses diminished. Urine microalbumin/creatinine ratio - ordered goal <30 not treated with losartan and indapamide, Personally reviewed : GFR- 67 Kidney function- abnormal B/P today- at goal. Goal is <140/90, continue on losartan Personally reviewed lipid panel. Not at Goal of less than 70. Continue on rosuvastatin fenofibrate Assessment & Plan (05/18/2022 12:54 PM CDT): This is a chronic condition which is at goal. Personally reviewed most recent A1c - Lab Results Component Value Date HGBA1C 6.6 05/18/2022 goal less than 7% Personally reviewed POC blood sugar- 108 at goal 80-180 Medication- discontinue Lantus 10 units daily, Farxiga 10 mg daily, metformin 500 mg b.i.d.. Will add Trulicity 0.75 mg weekly. Monitor blood sugar to times a day. Encouraged annual eye exam. Monofilament foot exam completed, protective senses diminished. Urine microalbumin/creatinine ratio - ordered goal <30 not treated with losartan and indapamide, Personally reviewed : GFR- 67 Kidney function- abnormal B/P today- at goal. Goal is <140/90, continue on losartan Personally reviewed lipid panel. Not at Goal of less than 70. Continue on rosuvastatin fenofibrate Gout, unspecified 03/10/2022 Encounters Date Type Department Care Team Description 11/25/2024 Telephone [facility] [address] [facility] 11th [place] [address] [place] [address] Meggan Martin Au.D. from Last 3 Months Immunizations Immunization Administration Dates Next Due Tdap 09/02/2019,05/03/2014 Surgical History Surgery Date Site/Laterality Comments COLON SURGERY HERNIA REPAIR Medical History Medical History Date Comments HL (hearing loss) Sinusitis COPD (chronic obstructive pulmonary disease) (HC C) Diabetes (HCC) Hypertension History of kidney problems GERD (gastroesophageal reflux disease) Tinnitus Dizziness Family History Medical History Relation Name Comments Diabetes Father Relation Name Status Comments Father Social History Tobacco Use Types Packs/Day Years Used Date Smoking Tobacco: Every Day Cigarettes Tobacco Cessation:Ready to Q uit: Not Asked; Counseling Given: Not Answered Personal Safety Answer Date Recorded Getting School Help Needed Not on file 08/18 Sex and Gender Information Value Date Recorded Sex Assigned at Not on file Legal Sex Male 8:10 AM CDT Gender Identity Not on file Sexual Orientation Not on file Obstetrics History Last Filed Vital Signs Vital Sign Reading Time Taken Comments Blood Pressure 130/78 12/20/2023 1:21 PM CDT Pulse 98 12/20/2023 1:21 PM CDT Temperature 37 C (98.6 F) 12/20/2023 1:21 PM CDT Respiratory Rate 14 12/20/2023 1:21 PM CDT Oxygen Saturation 92% 12/20/2023 1:21 PM CDT Inhaled Oxygen Concentration - - Weight 98.4 kg (217 lb) 12/20/2023 1:21 PM CDT Height 177.8 cm (5' 10 ) 12/20/2023 1:21 PM CDT Body Mass Index 31.14 12/20/2023 1:21 PM CDT Plan of Treatment Health Maintenance Due Date Last Done Comments Colon Cancer Screening-Colonoscopy 1969 Depression Screening 1969 Hepatitis C Screening 1969 Prostate Cancer Screening-PSA 1969 Dilated Eye Exam 1969 Foot Exam 1969 Hepatitis B Screening 12/10/1987 Regular Well Visit/Exam 18-64 12/10/1987 Pneumococcal vaccine <65 (1 of 2 - PCV) 1988 Zoster Vaccine (1 of 2) 12/10/2019 Hemoglobin A1C 04/10/2024 10/11/2023, 02/03, 11/10/2022, Additional history exists Albumin Creatinine Ratio, Urine 10/11/2024 , 05/18/2022 Lipid Panel 10/11/2024 10/11/2023, 05/18/2022 eGFR 10/11/2024 10/11/2023, 05/18/2022 Lung Cancer Screening 12/15/2024 12/15/2023 Influenza Vaccine (Season Ended) 2025 DTaP/Tdap/Td Vaccine (3 - Td or Tdap) 09/02/2029 09/02/2019, 05/03/2014 Procedures Procedure Name Priority Date/Time Associated Diagnosis Comments CT LUNG CANCER SCREENING Schedule Routine, Read Routine (OP Routine) 12/15/2023 8:55 AM CDT Nicotine dependence, cigarettes, uncomplicated EGFR Routine 10/11/2023 1:28 PM GLOBAL CHIEF EXPERIENCE OFFICER Type 2 diabetes mellitus with stage 2 chronic kidney disease, with long-term current use of insulin (HCC) LIPID PANEL Routine 10/11/2023 1:28 PM GLOBAL CHIEF EXPERIENCE OFFICER Type 2 diabetes mellitus with stage 2 chronic kidney disease, with long-term current use of insulin (HCC) ALBUMIN CREATININE RATIO, URINE Routine 10/11/2023 1:28 PM GLOBAL CHIEF EXPERIENCE OFFICER Type 2 diabetes mellitus with stage 2 chronic kidney disease, with long-term current use of insulin (HCC) POCT HEMOGLOBIN A1C Routine 10/11/2023 1:12 PM GLOBAL CHIEF EXPERIENCE OFFICER Type 2 diabetes mellitus with stage 2 chronic kidney disease, with long-term current use of insulin (HCC) from Last 3 Months or Most Recently Relevant to Health Maintenance Results * CT Lung Cancer Screening (12/15/2023 8:55 AM CDT) Anatomical Region Laterality Modality Chest N/A Computed Tomogra phy 12/15/2023 10:0 9 AM CDT Narrative 12/15/2023 10:31 AM CDT EXAM DESCRIPTION: CT LUNG CANCER SCREENING REASON FOR STUDY: Screening CT of the chest in a current smoker with a 39 pack year smoking history. Additional history: None. TECHNIQUE: Low dose CT scan of the chest was performed without intravenous contrast using helical scanning technique. The exam extends from the lung apices through the lung bases. Automatic exposure control was used as a dose optimization technique. NOTE: This study was performed for the specific purposes of lung cancer screening and is not an alternative to diagnostic chest CT. RADIATION DOSE: CT dose index volume (CTDIvol) = 2.86 mGy COMPARISON: None FINDINGS: SMOKING RELATED LUNG DISEASE: There are minimal to mild emphysematous changes of lungs with scattered mild subsegmental atelectasis and scarring. There is no definite evidence of a pneumothorax. The central airways are grossly patent. There are scattered mild bronchial wall thickening, which is likely related to mild chronic bronchitis/bronchiolitis. There is no definite evidence of a focal consolidation or pleural effusion. LUNG NODULES: There are scattered small pulmonary nodules noted. For example there is a 0.3 cm pulmonary nodule in the lateral right upper lobe (axial image 80). There is a 0.4 cm right upper lobe pulmonary nodule (axial image 92). There is a 0.4 cm right upper lobe pulmonary nodule abutting the right minor fissure (axial image 139). There is a 0.4 cm subpleural pulmonary nodule in the medial left upper lobe abutting the mediastinum (axial image 127). CORONARY ARTERY CALCIFICATION: Present. OTHER: The heart size is upper limits of normal. There is no definite evidence of a pericardial effusion. There are mild atherosclerotic changes of the thoracic aorta and coronary vessels. There is no definite unenhanced CT evidence of mediastinal, hilar, or axillary lymphadenopathy. There are scattered subcentimeter mediastinal lymph nodes noted with the largest measuring 0.8 cm in the subcarinal region (axial image 131). There is mild bilateral gynecomastia. There is a small hiatal hernia. The bilateral adrenal glands are grossly symmetrical and unremarkable. There is a mild dextroscoliotic curvature of the spine with degenerative changes. IMPRESSION: Scattered small pulmonary nodules with the largest measuring up to 0.4 cm. Minimal to mild emphysematous changes of lungs with scattered mild subsegmental atelectasis and scarring. Scattered mild bronchial wall thickening, which is likely related to mild chronic bronchitis/bronchiolitis. Lung-RADS category 2: Benign appearance or behavior. Recommendation: Low dose Screening CT of chest in 12 months. THIS IS AN ELECTRONICALLY VERIFIED FINAL REPORT 12/15/2023 10:31 AM - Electronically signed by Keanu Packer D.O. PS: PS Report ID: [id number] Reading Location: [id number] Procedure Note Keanu Packer DO - 12/15/2023 EXAM DESCRIPTION: CT LUNG CANCER SCREENING REASON FOR STUDY: Screening CT of the chest in a current smoker with a39 pack year smoking history. Additional history: None. TECHNIQUE: Low dose CT scan of the chest was performed without intravenous contrast using helical scanning technique. The exam extends from the lung apices through the lung bases. Automatic exposure control was used as adose optimization technique. NOTE: This study was performed for the specific purposes of lung cancer screening and is not an alternative to diagnostic chest CT. RADIATION DOSE: CT dose index volume (CTDIvol) = 2.86 mGy COMPARISON: None FINDINGS: SMOKING RELATED LUNG DISEASE: There are minimal to mild emphysematous changes of lungs with scattered mild subsegmentalatelectasis and scarring. There is no definite evidence of a pneumothorax. Thecentral airways are grossly patent. There are scattered mild bronchial wall thickening, which is likely related to mild chronicbronchitis/bronchiolitis. There is no definite evidence of a focal consolidation or pleuraleffusion. LUNG NODULES: There are scattered small pulmonary nodules noted. For example there is a 0.3 cm pulmonary nodule in the lateral right upper lobe (axial image 80). There is a 0.4 cm right upper lobe pulmonary nodule(axial image 92). There is a 0.4 cm right upper lobe pulmonary nodule abuttingthe right minor fissure (axial image 139). There is a 0.4 cm subpleuralpulmonary nodule in the medial left upper lobe abutting the mediastinum (axial image 127). CORONARY ARTERY CALCIFICATION: Present. OTHER: The heart size is upper limits of normal. There is no definite evidence of a pericardial effusion. There are mild atheroscleroticchanges of the thoracic aorta and coronary vessels. There is no definite unenhanced CT evidence of mediastinal, hilar, oraxillary lymphadenopathy. There are scattered subcentimeter mediastinal lymphnodes noted with the largest measuring 0.8 cm in the subcarinal region (axialimage 131). There is mild bilateral gynecomastia. There is a small hiatal hernia. The bilateral adrenal glands are grossly symmetrical and unremarkable. There is a mild dextroscoliotic curvature of the spine with degenerative changes. IMPRESSION: Scattered small pulmonary nodules with the largest measuring up to 0.4cm. Minimal to mild emphysematous changes of lungs with scattered mild subsegmental atelectasis and scarring. Scattered mild bronchial wall thickening, which is likely related to mild chronic bronchitis/bronchiolitis. Lung-RADS category 2: Benign appearance or behavior. Recommendation: Low dose Screening CT of chest in 12 months. THIS IS AN ELECTRONICALLY VERIFIED FINAL REPORT 12/15/2023 10:31 AM - Electronically signed by Keanu Packer D.O. PS: PINA Report ID: [id number] Reading Location: [place] [address] us Jose Snow MD IMG CT PROCEDURES Nevaeh l Result * eGFR (10/11/2023 1:28 PM GLOBAL CHIEF EXPERIENCE OFFICER) eGFR 101 mL/min/1. 73 m2 [facility] STEVENS (NEY) Comment: Interpretive Data Reference Interval Normal >/= 90 mL/min/1.73m2 Mildly decreased* 60 - 89 mL/min/1.73m2 Mildly to moderately decreased 45 - 59 mL/min/1.73m2 Moderately to severely decreased 30 - 44 mL/min/1.73m2 Severely decreased 15 - 29 mL/min/1.73m2 Kidney Failure < 15 mL/min/1.73m2 *Relative to young adult level Estimated glomerular filtration rate is determined by the 2020 CKD-EPI equation recommended by the National Kidney Foundation (A Unifying Approach to GFR Estimation: Recommendations of the NKF-ASK Task Force on Reassessing the Inclusion of Race in Diagnosing Kidney Disease, JASN 2020). The CKD-EPI equation should not be used for patients with unstable renal function and has not been validated in children and those over 70. Current interpretive data was last reviewed 2021. Blood 10/11/2023 1:28 PM GLOBAL CHIEF EXPERIENCE OFFICER 10/11/2023 3:51 PM GLOBAL CHIEF EXPERIENCE OFFICER us [employer] SIGN WRITER LETTERER OR PAINTER LAB BLOOD ORDERABLES Final Resu lt [facility] STEVENS (NEY) [address] [facility] Department [place] [address] * Albumin Creatinine Ratio, Urine (10/11/2023 1:28 PM GLOBAL CHIEF EXPERIENCE OFFICER) Albumin Ur 49.6 mg/L PHOEBE Warren (NEY) Comment: Interpretive Data No reference range established. Current interpretive data was last revised 2019. Testing performed by: [facility], [address] [place] [address]., [id number] Creatinine Ur 231.4 mg/dL PHOEBE STEVENS (NEY) Comment: Interpretive Data No reference range established. Current interpretive data was last revised 2019. Testing performed by: [facility], [address] [place] [address]., [id number] Albumin Creatinine Ratio, Ur 21 1 - 29 mg/g [facility]OE[facility] STEVENS (NEY) Comment:Testing performed by : [facility], [address] [place] [address]., [id number] Urine 10/11/2023 1:28 PM GLOBAL CHIEF EXPERIENCE OFFICER 10/11/2023 7:21 PM GLOBAL CHIEF EXPERIENCE OFFICER us [employer] NP LAB URINE ORDERABLES Final Resu lt [facility] STEVENS (NEY) 1 [facility] Department [place] [address] * Lipid panel (10/11/2023 1:28 PM GLOBAL CHIEF EXPERIENCE OFFICER) Cholesterol 142 30 - 199 mg/dL [facility]OE[facility] STEVENS (NEY) Comment: Interpretive Data Ages < or = 19 years Acceptable: <170 mg/dL Borderline high: 170-199 mg/dL High: >or= 200 mg/dL Ages > or = 20 years Desirable: <200 mg/dL Borderline high: 200-239 mg/dL High: >or= 240 mg/dL Literature References: 1. Expert Panel on Integrated Guidelines for Cardiovascular Health and Risk Reduction in Children and Adolescents. Pediatrics 2011;128:S213 2. NCEP Expert Panel. Circulation 2004;110:227 Current Interpretive Data was last revised on 2018. Triglycerides 85 <=149 mg/dL [facility]OE[facility] STEVENS (NEY) Comment: Interpretive Data Ages < or = 9 years Acceptable: <75 mg/dL Borderline high: 75-99 mg/dL High: >or= 100 mg/dL Ages 10 to 20 years Acceptable: <90 mg/dL Borderline high: 90-129 mg/dL High: >or= 130 mg/dL Ages > or = 20 years Desirable: <150 mg/dL Borderline high: 150-199 mg/dL High: 200-499 mg/dL Very high: >or= 499 mg/dL Literature References: 1. Expert Panel on Integrated Guidelines for Cardiovascular Health and Risk Reduction in Children and Adolescents. Pediatrics 2011;128:S213 2. NCEP Expert Panel. Circulation 2004;110:227 Current Interpretive Data was last revised on 2018. HDL 47 >=40 mg/dL PHOEBE Warren (NEY) Comment: Interpretive Data Ages < or = 19 years Acceptable: >45 mg/dL Borderline low: 40-45 mg/dL Low: <40 mg/dL Ages > or = 20 years Desirable: >or= 60 mg/dL Low: <40 mg/dL Literature References: 1. Expert Panel on Integrated Guidelines for Cardiovascular Health and Risk Reduction in Children and Adolescents. Pediatrics 2011;128:S213 2. NCEP Expert Panel. Circulation 2004;110:227 Current Interpretive Data was last revised on 2018. LDL, calculated 78 <=129 mg/dL PHOEBE STEVENS (NEY) Comment: Interpretive Data Ages < or = 19 years Acceptable: <110 mg/dL Borderline high: 110-129 mg/dL High: >or= 130 mg/dL Ages > or = 20 years Optimal: <100 mg/dL Near optimal: 100-129 mg/dL Borderline high: 130-159 mg/dL High: >160 mg/dL Literature References: 1. Expert Panel on Integrated Guidelines for Cardiovascular Health and Risk Reduction in Children and Adolescents. Pediatrics 2011;128:S213 2. NCEP Expert Panel. Circulation 2004;110:227 Current Interpretive Data was last revised on 2018. Non-HDL Cholesterol 95 mg/dL [facility]OE[facility] STEVENS (NEY) Comment: Interpretive Data Ages < or = 19 years Acceptable: <120 mg/dL Borderline high: 120-144 mg/dL High: >145 mg/dL Ages > or = 20 years When triglycerides are >200 mg/dL, Non-HDL cholesterol is a secondary target of therapy with treatment goals that are 30 mg/dL greater than the LDL cholesterol target. Literature References: 1. Expert Panel on Integrated Guidelines for Cardiovascular Health and Risk Reduction in Children and Adolescents. Pediatrics 2011;128:S213 2. NCEP Expert Panel. Circulation 2004;110:227 Current Interpretive Data was last revised on 2018. Chol/HDL ratio 3 [facility] (NEY) Blood 10/11/2023 1:28 PM GLOBAL CHIEF EXPERIENCE OFFICER 10/11/2023 3:51 PM GLOBAL CHIEF EXPERIENCE OFFICER Narrative [facility] STEVENS (NEY) - 10/11/2023 4:37 PM GLOBAL CHIEF EXPERIENCE OFFICER These lab test should be done fasting. This means do not eat or drink for at least 12 hours prior to getting your blood drawn. [employer] NP LAB BLOOD ORDERABLES Final Resu lt [facility]OE[facility] STEVENS (NEY) 1 [facility] Department [place] [address] * POCT hemoglobin A1c (10/11/2023 1:12 PM GLOBAL CHIEF EXPERIENCE OFFICER) Hemoglobin A1C, POC 5.8 % Blood 10/11/2023 1:12 PM GLOBAL CHIEF EXPERIENCE OFFICER [employer] NP POINT OF CARE TEST ORDERABLES F inal Result from Last 3 Months or Most Recently Relevant to Health Maintenance Insurance [facility] CHOICE OOS BLUE ACC CHOICE OOS BLUE ACC CHOICE OOS Care Teams Home Health Occupational Therapist Relationship Specialty Start Date End Date Blaze Paulino MD PCP - General Emergency Medicine 05/03/22
--- OUTSIDE RECORDS SUMMARY | 2025-01-02 13:29 | XMS_ITS | Referral Summary ---
Author Organization [facility] Medical Office Building B Address [address] [place] [address] Care Team Providers Care Research Quality Assurance Analyst Name Role Phone Blaze Paulino MD Primary Care Provider [phone] Encounters Date Type Department Care Team Description 11/25/2024 Telephone [facility] [address] [facility] 11th [place] [address] [place] [id number] Meggan Martin Au.D. from Last 3 Months Allergies No known active allergies Medications budesonide-form [...] Ultra-Fine Mini Pen Needle 31 gauge x 3/16 needle USE 1 ONCE DAILY 2 Active [...] 10/25/2023 Assessment & Plan (10/25/2023 12:27 PM GIS SCIENTIST): He has Pretty significant sinusitis on his [...] 02/21/2023 Assessment & Plan (10/11/2023 1:06 PM GIS SCIENTIST): This is a chronic condition which is [...] 01/04/2023 Assessment & Plan (10/25/2023 12:26 PM GIS SCIENTIST): He does have a severely deviated nasal [...] 01/04/2023 Assessment & Plan (10/25/2023 12:34 PM GIS SCIENTIST): This is likely due to the deviated [...] 03/10/2022 Assessment & Plan (10/11/2023 1:25 PM GIS SCIENTIST): This is a chronic condition which is [...] rosuvastatin. Assessment & Plan (11/10/2022 2:33 PM GIS SCIENTIST): This is a chronic condition which is [...] fenofibrate Assessment & Plan (07/13/2022 2:49 PM GIS SCIENTIST): This is a chronic condition which is [...] Continue on rosuvastatin fenofibrate Gout, unspecified 03/10/2022 Immunizations Immunization Administration Dates Next Due Tdap 09/02/2019,05/03/2014 Social History Tobacco Use Types Packs/Day Years [...] 12/20/2023 1:21 PM CDT Plan of Treatment Not on file Procedures Procedure Name Priority Date/Time Associated Diagnosis Comments CT LUNG CANCER SCREENING Schedule Routine, Read Routine (OP Routine) 12/15/2023 8:55 AM CDT Nicotine dependence, cigarettes, uncomplicated EGFR Routine 10/11/2023 1:28 PM GIS SCIENTIST Type 2 diabetes mellitus with stage 2 chronic kidney disease, with long-term current use of insulin (HCC) LIPID PANEL Routine 10/11/2023 1:28 PM GIS SCIENTIST Type 2 diabetes mellitus with stage 2 chronic kidney disease, with long-term current use of insulin (HCC) ALBUMIN CREATININE RATIO, URINE Routine 10/11/2023 1:28 PM GIS SCIENTIST Type 2 diabetes mellitus with stage 2 chronic kidney disease, with long-term current use of insulin (HCC) POCT HEMOGLOBIN A1C Routine 10/11/2023 1:12 PM GIS SCIENTIST Type 2 diabetes mellitus with stage 2 [...] Keanu Packer D.O. PS: PS Report ID: [id number] Reading Location: [id number] Procedure Note Keanu Packer, DO - 12/15/2023 EXAM DESCRIPTION: CT LUNG [...] Keanu Packer D.O. PS: PS Report ID: [id number] Reading Location: [place] [address] Jose Snow MD IMG CT PROCEDURES Nevaeh l Result * eGFR (10/11/2023 1:28 PM GIS SCIENTIST) eGFR 101 mL/min/1. 73 m2 PHOEBE STEVENS [...] last reviewed 2021. 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 Co de Phone Number PHOEBE STEVENS (NEY) [address] [facility] [place] [address] * Albumin Creatinine Ratio, Urine (10/11/2023 1:28 PM GIS SCIENTIST) Albumin Ur 49.6 mg/L [facility] (NEY) Comment: Interpretive Data No reference range established. Current interpretive data was last revised 2019. Testing performed by: [facility], [address] [place] [address]., [id number] Creatinine Ur 231.4 mg/dL PHOEBE STEVENS (NEY) Comment: Interpretive Data No reference range established. Current interpretive data was last revised 2019. Testing performed by: [facility], [address] [place] [address]., [id number] Albumin Creatinine Ratio, Ur 21 1 - 29 mg/g [facility] (NEY) Comment:Testing performed by : [facility], [address] [place] [address]., [id number] Urine 10/11/2023 1:28 PM GIS SCIENTIST 10/11/2023 7:21 PM GIS SCIENTIST us [employer]oma [employer] NP LAB URINE ORDERABLES Final Resu lt Performing Organization Address [facility] Co de Phone Number [facility] (NEY) 1 [facility] [place] [address] * Lipid panel (10/11/2023 1:28 PM GIS SCIENTIST) Cholesterol 142 30 - 199 mg/dL [facility] (NEY) Comment: Interpretive Data Ages < or [...] 2018. Triglycerides 85 <=149 mg/dL PHOEBE STEVENS (NYE) Comment: Interpretive Data Ages < or = [...] revised on 2018. Chol/HDL ratio 3 ANGE STEVENS (SALOL) Blood 10/11/2023 1:28 PM GIS SCIENTIST 10/11/2023 3:51 PM GIS SCIENTIST Narrative PHOEBE RODNEY (SALOL) - 10/11/2023 4:37 PM GIS SCIENTIST These lab test should be done fasting. This means do not eat or drink for at least 12 hours prior to getting your blood drawn. Paloma Power NP LAB BLOOD ORDERABLES Final Resu lt PHOEBE STEVENS (NEY) 1 [facility] [place] [address] * POCT hemoglobin A1c (10/11/2023 1:12 PM GIS SCIENTIST) Hemoglobin A1C, POC 5.8 % Blood 10/11/2023 1:12 PM GIS SCIENTIST Paloma Power NP POINT OF CARE TEST ORDERABLES F inal Result from Last 3 Months or Most Recently Relevant to Health Maintenance Insurance [place] [id number] BLUE ACC CHOICE OOS BLUE ACC CHOICE OOS Care Teams Research Quality Assurance Analyst Relationship Specialty Start Date End Date Blaze Paulino MD PCP - General Emergency Medicine 05/03/22
--- OUTSIDE RECORDS SUMMARY | 2025-01-02 13:29 | XMS_ITS | Data Portability ---
Author Organization [place] [facility] [employer], Main Office Address [address] [place] [address] Care Team Providers Care Clothespin Drier Operator Name Role Phone MILLICENT BISHOP Primary Care Provider MILLICENT BISHOP Referring Provider [phone] Assessment Encounter Date Assessment Date Assessment LastModified by Organization Details LastModified Time 04/18/2024 04/18/2024 53-year-old male presents for evaluation of his left knee. He reports pain for about 2 months which is worse with walking and improved with resting. Is located over the medial aspect of the knee. He currently rates his pain 7/10. He has taken some Flexeril and meloxicam for his neck, and also wearing a knee sleeve. He has also iced. 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 He has history of diabetes with A1c level of 5.4. He smokes 1 pack a day. He has COPD. Review of systems per patient questionnaire Physical exam: He has mildly antalgic gait. Tenderness over the medial joint line. Range of motion 0-130, negative James's. 1+ effusion. Stable ligaments X-rays reviewed, demonstrating medial degenerative changes with joint space narrowing He has mild to moderate osteoarthritis of the knee. We would begin with conservative management he should continue with his meloxicam and we will add physical therapy. He may also use topical Voltaren. We also discussed a cortisone injection as he reports pain at night which disrupts his sleep. He wanted to proceed with that tolerated well. We also discussed smoking cessation and the effects of nicotine on healing, 3 minutes were spent. We will have him follow up in 6-8 weeks after the course of treatment if he does not have improvement. He is in agreement with the plan. [email or web address] Not available 04/19/2024 00:25:47 12/12/2024 12/12/2024 HPI: 54 year old male presents today for follow-up of left knee pain secondary to osteoarthritis. He was last evaluated on Apr 18, a treatment plan was injection, meloxicam, and physical therapy. He never went to physical therapy. The injection provided symptomatic relief until 2 weeks ago. Rates pain today as 7/10. He would like another injection today. He is a current smoker and diabetic. Physical Exam: General: Normal appearance. No acute distress. Inspection: No evidence of swelling, erythema, bruising or deformity. Palpation: Mild tenderness over medial joint line ROM: 0-130 Motor: 5/5 strength. Sensation: Sensation intact. Assessment & Plan: Injection given today. Discussed temporary elevation of glucose/blood sugar levels. Knee home exercises given today. Follow Up: As needed. Discussed gel injection and medial batch unloader brace as other tx options. All questions were answered. Patient verbalized understanding of treatment plan [email or web address] Not available 12/12/2024 12:47:36 Plan of Treatment Reminders Order Date Submit Date Provider Last Modified By Organization Details Last Modified Time Details Appointments None recorded. Lab None recorded. Referral physical therapist referral - EVAL AND TREAT 2023 024 [email or web address], [address], [place], [address], 4 15:32:28 Procedures injection/a spiration joint/bursa (PROC) 2024 025 [email or web address] In-Office Order, Internal Use Only DO Not Attach Compendium DO Not Attach Compendium, Do Not Delete/merge, [id number] 11:15:28 injection/a spiration joint/bursa (PROC) - in office procedure, administere d by provider 2023 024 [email or web address] In-Office Order, Internal Use Only DO Not Attach Compendium DO Not Attach Compendium, Do Not Delete/merge, [id number] 15:34:22 Surgeries None recorded. Imaging XR, knee, 4 or more view 2023 024 [email or web address] [facility], [address], [place], [address], 4 08:22:49 Medication Orders bupivacaine HCl 0.5 % (5 mg/mL) injection solution [address] [facility], [facility] [place], [address], 5 15:30:31 Kenalog 10 mg/mL suspension for injection [address] [facility], [address] [place] [address], [address], 5 15:30:31 Marcaine (PF) 0.5 % (5 mg/mL) injection solution [address] [address], [facility] [place], [address], 4 16:31:29 Kenalog 10 mg/mL suspension for injection [address] [address], [facility] [place], [address], 4 16:31:29 Patient TargetsNo targets recorded. Patient InstructionsNo instructions recorded. Reason for Referral Physical Therapist Referral for Pain of left knee joint EVAL AND TREAT Referring Physician: Mitesh Herring, Orthopedic Surgery, Encounter Date: 04/18/2024 Results Created Date Observation Date Name Description Value Unit Range Abnormal Flag Note LastModifiedBy Organization Detail LastModifiedTime 04/18/20 24 XR, knee, 4 or more view No observ ation record ed. [email or web address] [facility] [place] [address], [place], [address], 04/18/2024 14:52:49 Result Notes None recorded. Problems Name Problem SNOMED Code Status Onset Date Resolution Date Notes Provider Name and Address Organization Details Recorded Time Pain of shoulder region 28424461 Active 2019 Not Available [facility] 3 13:12:36 Spinal stenosis in cervical region 18705467 Active 2019 Not Available [facility] 3 13:12:36 Pain of left knee joint 21240976288693 7 Active 2023 Audelia Ozuna, RMVel null, [place] [employer] 4 14:52:31 Problem Notes None recorded. Procedures Surgical History Date Name Laterality Status Provider Name and Address Organization Details Recorded Time 5 Ortho - Cortisone Injection completed Lynda Aguilar PA-C [address], [place], [address], [employer] 12/12/2024 12:48:02 4 Ortho - Cortisone Injection completed Mitesh Herring MD [address], [place], [address], [employer] 04/19/2024 00:25:57 Imaging Results Imaging Date Name Status LastModified by Organiz ation Details LastModified Time 04/18/2024 XR, knee, 4 or more view completed [facility] [place] [address], [place], [address], 04/18/2024 14:52:49 Procedure Notes None recorded. Medical Equipment None Reported. Allergies No known drug allergies Medications Name Sig Start Date Stop Date Status Note LastModified by Organization Details LastModified Time losartan 50 mg tablet TAKE 1 TABLET BY MOUTH ONCE DAILY active Not Available Not Available No t Available cyclobenzap rine 10 mg tablet TAKE 1 TABLET BY MOUTH THREE TIMES DAILY active Not Available Not Available No t Available metformin 500 mg tablet 04/17 completed Not Available Not Available Not Available prednisone 10 mg tablet 04/17 completed Not Available Not Available Not Available cefuroxime axetil 250 mg tablet TAKE 2 TABLETS BY MOUTH TWICE DAILY FOR 10 DAYS 04/18 completed Not Available Not Available Not Available sildenafil 50 mg tablet TAKE 1 TABLET BY MOUTH ONCE DAILY NEEDED active Not Available Not Available No t Available indapamide 2.5 mg tablet TAKE 1 TABLET BY MOUTH ONCE DAILY active Not Available Not Available No t Available hydrocodone 5 mg-acetamin ophen 325 mg tablet 12/24 completed Not Available Not Available Not Available meloxicam 15 mg tablet TAKE 1 TABLET BY MOUTH ONCE DAILY active Not Available Not Available No t Available bupivacaine HCl 0.5 % (5 mg/mL) injection solution Take 2 mL by injection route. 2024 active Not Available Not Available Not Avai lable prednisone 20 mg tablet TAKE 2 TABLETS BY MOUTH ONCE DAILY FOR 5 DAYS active Not Available Not Available No t Available allopurinol 100 mg tablet active Not Available Not Available Not Available omeprazole 40 mg capsule,del ayed release 04/17 completed Not Available Not Available Not Available sildenafil 25 mg tablet TAKE 1 TABLET BY MOUTH ONCE DAILY NEEDED active Not Available Not Available No t Available sildenafil 100 mg tablet TAKE 1 TABLET BY MOUTH ONCE DAILY. TAKE 6 HOURS PRIOR TO SEXUAL ACTIVITY. DO NOT EXCEED 100 MG PER DAY, DO NOT TAKE FOR MORE THAN 3 DAYS CONSECUTI VELY. active Not Available Not Available No t Available hydrocortis one acetate 25 mg rectal suppository 12/24 completed Not Available Not Available Not Available prednisone 10 mg tablets in a dose pack Take 1 tab by mouth, 3 times a day for 3 daysTake 1 tab by mouth 2 times a day for 2 daysTake 1 tab by mouth once a day for 1 day 04/17 completed Not Available Not Available Not Available potassium chloride ER 20 mEq tablet,exte nded release(par t/cryst) 04/17 completed Not Available Not Available Not Available amitriptyli ne 25 mg tablet TAKE 1 TABLET BY MOUTH EVERY DAY AT BEDTIME active Not Available Not Available No t Available Kenalog 10 mg/mL suspension for injection Take 4 mL by injection route. 2024 active [facility]: [phone]- [phone] Not Available Not Available Not Available doxycycline monohydrate 100 mg capsule TAKE 1 CAPSULE BY MOUTH TWICE DAILY FOR 7 DAYS active Not Available Not Available No t Available buspirone 30 mg tablet 04/17 completed Not Available Not Available Not Available buspirone 10 mg tablet TAKE 1 TABLET BY MOUTH TWICE DAILY FOR ANXIETY 12/24 completed Not Available Not Available Not Available gabapentin 300 mg capsule TAKE 1 CAPSULE BY MOUTH 4 TIMES DAILY FOR 30 DAYS . APPOINTME NT REQUIRED FOR FUTURE REFILLS active Not Available Not Available No t Available hydroxyzine HCl 25 mg tablet active Not Available Not Available Not Available allopurinol 300 mg tablet 04/17 completed Not Available Not Available Not Available mirtazapine 15 mg tablet 12/24 completed Not Available Not Available Not Available gabapentin 100 mg capsule 12/24 completed Not Available Not Available Not Available methylpredn isolone 4 mg tablets in a dose pack TAKE BY MOUTH DIRECTED ON INSIDE OF PACKAGE 04/18 completed Not Available Not Available Not Available albuterol sulfate HFA 90 mcg/actuati on aerosol inhaler INHALE 2 PUFFS BY MOUTH EVERY 4 TO 6 HOURS NEEDED FOR SHORTNESS OF BREATH FOR WHEEZING FOR 30 DAYS active Not Available Not Available No t Available ondansetron 4 mg disintegrat ing tablet DISSOLVE 1 TABLET IN MOUTH EVERY 6 HOURS NEEDED FOR NAUSEA AND VOMITING FOR 3 DAYS active Not Available Not Available No t Available dicyclomine 10 mg capsule active Not Available Not Available Not Available finasteride 5 mg tablet 04/17 completed Not Available Not Available Not Available naproxen 500 mg tablet 12/24 completed Not Available Not Available Not Available cyclobenzap rine 5 mg tablet 12/24 completed Not Available Not Available Not Available rosuvastati n 20 mg tablet TAKE 1 TABLET BY MOUTH ONCE DAILY active Not Available Not Available No t Available Marcaine (PF) 0.5 % (5 mg/mL) injection solution Take 4 mL by injection route. 2023 active Not Available Not Available Not Avai lable Boostrix Tdap 2.5 Lf unit-8 mcg-5 Lf/0.5 mL intramuscul ar syringe ADM 0.5ML IM UTD 12/24 completed Not Available Not Available Not Available fenofibrate 160 mg tablet 04/18 completed Not Available Not Available Not Available Symbicort 80 mcg-4.5 mcg/actuati on HFA aerosol inhaler active Not Available Not Available Not Available Farxiga 10 mg tablet active Not Available Not Available No t Available Trulicity 1.5 mg/0.5 mL subcutaneou s pen injector 04/18 completed Not Available Not Available Not Available OneTouch Ultra Blue Test Strip 12/24 completed Not Available Not Available Not Available OneTouch Ultra2 Meter 04/17 completed Not Available Not Available Not Available OneTouch Delica Plus Lancet 33 gauge 12/24 completed Not Available Not Available Not Available albuterol sulf 90 mcg/actuati on breath activated powder inhaler,sen sor Inhale 2 puffs every 4 hours by inhalatio n route. 04/17 completed Not Available Not Available Not Available Trulicity 3 mg/0.5 mL subcutaneou s pen injector active Not Available Not Available Not Available FreeStBaileyu Neville 3 Sensor device active Not Available Not Available Not Available Vitals Date Recorded Body height Body mass index (BMI) Body weight Pain severity - 0-10 verbal numeric rating [Score] - Reported Provider Name and Address Organization Details Last Updated DateTime 04/18/2024 177.8 cm 31.6 kg/m2 31630.32 g 7 KAYE Beck [facility] [employer] 04/18/2024 14:50:00 Date Recorded Body height Body mass index (BMI) Body weight Pain severity - 0-10 verbal numeric rating [Score] - Reported Provider Name and Address Organization Details Last Updated DateTime 12/12/2024 177.8 cm 31.6 kg/m2 21362.32 g 7 KAYE Beck [employer] 12/12/2024 10:49:36 Social History Question Answer Notes LastModified by Organizat ion Details LastModified Time Tobacco Smoking Status Current Every Day Smoker KAYE Beck [facility] [employer] 04/18/2024 14:51:34 What Is Your Level Of Alcohol Consumption? Heavy [email or web address] Information not available 04/18/2024 What Was The Date Of Your Most Recent Tobacco Screening? 04/18/2024 [email or web address] Information not available 04/18/2024 Sex: Unknown Functional Status None recorded. Mental Status None recorded. Family History Relationship Description Onset Age of this Age Resolved Age Notes LastModified by Organization Details LastModified Time Mother Hypertensive disorder [email or web address] Not available 2023 14:51:05 Medical History Condition Response DIABETES, TYPE Y GOUT Y COPD Y HYPERTENSION Y Past Encounters Encounter ID Performer Location Encounter Start Date Encounter Closed Date Diagnosis/Indication Diagnosis SNOMED-CT Code Diagnosis ICD10 Code Diagnosis Note [id number] Mitesh Herring MD [facility] [place] [address] [place] [address] 04/18/2024 14:30:27 04/18/2024 15:26:27 Pain of left knee joint 0815447268 03913 M25.051 [id number] Mitesh Herring MD [facility] [place] [address] [place] [address] 12/12/2024 10:46:58 12/12/2024 11:18:35 Pain of left knee joint 7615838648 56547 M25.562 Health Concerns Section Related Observation LastModified by Organization Detai ls LastModified Time None Recorded Concern Status LastModified by Organization Details LastModified Time None Recorded Advance Directives Directive None Recorded Payers Encounter Date Sequence Insurance Name Policy Number Policy Jarrett Covered Member ID Jarrett Member ID Guarantor Name 04/18/2024 1 [employer] [id number] Alessio B Shireen [id number] Alessio B Shireen 12/12/2024 1 [place] [id number] Alessio B Shireen [id number] Alessio B Shireen
--- OUTSIDE RECORDS SUMMARY | 2025-01-02 13:29 | XMS_ITS ---
Author Organization [facility] [employer] [place] ([address]) Address [address] [place] [address] Care Team Providers Care Sap Consultant Name Role Phone Blaze alonso Primary Care Provider Aaliyah Mo Unavailable [phone] Dr. 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 The study was completed and the report is scanned into the Documents section of the chart Problems Problem Type SNOMED Code ICD Code Onset Dates Problem Status W/U Status Risk Notes Problem Cervical radiculopathy (00229385) Radiculopathy, cervical region (M54.12) Active confirmed Problem Degeneration of cervical intervertebral disc (61637820) Other cervical disc degeneration, unspecified cervical region (M50.30) Active confirmed Problem Cervicalgia (74967465) Cervicalgia (M54.2) Active confirmed Problem Pain in right arm (102395339) Pain in right arm (M79.601) Active confirmed Problem Pain in left arm (833642415) Pain in left arm (M79.602) Active confirmed Vital Signs Blood pressure systolic 137 mm Hg 10/19/19 24 Blood pressure diastolic 79 mm Hg 024 Respiratory Rate 18 /min 10/19/2023 Height 70 in 10/19/2023 Weight 210.8 lbs 10/19/2023 BMI 30.24 kg/m2 10/19/2023 Oximetry 96 % 10/19/2023 Encounters Encounter Location Date Provider Diagnosis [facility] [address] [place] [address] 10/19/2023 Alfred Garcia Radiculopathy, cervical region M54.12 ; Cervicalgia M54.2 ; Other cervical disc degeneration, unspecified cervical region M50.30 ; Pain in right arm M79.601 and Pain in left arm M79.602 Assessments Encounter Date Diagnosis (ICD Code) Assessment Notes Treatment Notes Treatment Clinical Notes Section Notes 10/19/2023 Radiculopathy, cervical region (ICD-10 - M54.12) 10/19/2023 Cervicalgia (ICD-10 - M54.2) 10/19/2023 Other cervical disc degeneration, unspecified cervical region (ICD-10 - M50.30) 10/19/2023 Pain in right arm (ICD-10 - M79.601) 10/19/2023 Pain in left arm (ICD-10 - M79.602) Plan Of Treatment Next Appt Details Follow Up: prn, Reason: Progress Notes * Alessio IYER BDOB:[birth year] (52 yo M)Acc No.[id number]: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 The study was completed and the report is scanned into the Documents section of the chart * ROS: C ONSTITUTIONAL: Positive for P atient denies fevers, chills, sweats, unintended weight loss, loss of appetite, or chronic fatigue. E NT: Positive P atient denies ear fullness or pain or sinus pain. R ESPIRATORY: Positive for P atient denies shortness of breath or wheezing. O PHTHALMOLOGY: Positive for R eviewed and except as mentioned above in the HPI is negative. E NDOCRINOLOGY: Positive for P atient denies heat intolerance, cold intolerance, polyuria, elevated blood sugar, chronic fatigue. C ARDIOLOGY: Positive for P atient denies dizziness, palpitations, or chest pain. G ASTROENTEROLOGY: Positive for P atient denies diarrhea, melena, bloody stools, or abdominal pain. U ROLOGY: Positive for P atient denies urinary incontinence or urinary dysfunction. D ERMATOLOGY: Positive for P atient denies rash or hives. ? N EUROLOGY: Positive for R eviewed and except as mentioned above in the HPI is negative. H EMATOLOGY/LYMPH: Positive for P atient denies history of excessive bruising or bleeding diasthesis. M USCULOSKELETAL: Positive for P atient denies extremity joint pain or swelling. P SYCHOLOGY: Positive for R eviewed and except as discussed above in the HPI is otherwise negative. * Medical History: * Surgical History: * Hospitalization/Major Diagno stic Procedure: * Medications: Objective: * Vitals: B P:137/79mm Hg, HR:93/min, RR:18/min, Pulse Oximetry:96%, Ht: 70 in, Wt: 210.8 lbs, BMI:30.24Index. * Examination: G eneral examination: General appearance: P leasant, well-developed, no distress.? Neurologic exam: A lert and oriented x 4. Fluent speech. CN II-XII intact. Motor 5/5 x 4. Reflexes 1/2 biceps, 2/2 triceps, 2/2 lower extremities.? Negative Tinel's sign bilateral wrist and elbow. Normal gait. Assessment: * Assessment: 1. R adiculopathy, cervical region - M54.12 (Primary) 2 . C ervicalgia - M54.2 3 .?Other cervical disc degeneration, unspecified cervical region - M50.30 4 . P ain in right arm - M79.601 5 . P ain in left arm - M79.602 Plan: * Treatment: * Procedure Codes: G 8427 DOC MEDS VERIFIED W/PT OR [id number] NRV CNDJ TEST - [id number] MUSC TEST DONE W/N TEST COMP, Units: 2.00 * Follow Up: p rn * Billing Information: * Visit Code: * Procedure Codes: G8427 DOC MEDS VERIFIED W/[place]. [address] NR CNDJ TEST 11-12 STUDIES. [address] [facility] TEST DONE W/N TEST COMP. Units: 2.00. * [employer] Sign off status: Completed true * Provider: Mayi Garcia MD Date: 0 10/19/2023 Generated for Daphne harman/Yvan/eTmauricioitting on: 0 01/02/2025 01:29 PM CDT History and Physical Notes * Examination Category Sub-Category Detail Notes Category Not es General examination General appearance: Pleasant , well-developed, no distress Neurologic exam: Alert and oriented x 4. Fluent speech. CN II-XII intact. Motor 5/5 x 4. Reflexes 1/2 biceps, 2/2 triceps, 2/2 lower extremities. Negative Tinel's sign bilateral wrist and elbow. Normal gait
[2025-01-02 13:47] LABS: Estimated CRCL calculation 76 ml/min; Estimated Glomerular Filt Rate > 60
[2025-01-02 13:52] LABS: Basophils Percent Auto 0.4 % (0.2-1.2); Eosinophils Absolute Auto 0.1 K/mm3 (0-0.3); Eosinophils Percent Auto 0.8 % (0-4.4); Hematocrit 49.4 % (42.0-52.0); Hemoglobin 16.9 g/dL (14.0-18.0); Immature Granulocyte Absolute 0.03 K/mm3 (0.00-0.031); Immature Granulocyte Percent A 0.3 % (0-0.5); Lymphocytes Absolute Auto 1.43 K/mm3 (0.9-3.2); Lymphocytes Percent Auto 14.8 % (18.3-44.2); Mean Corpuscular HGB Conc 34.2 g/dl (32-36); Mean Corpuscular Hemoglobin 31.1 pg (26-34); Mean Platelet Volume 10.5 fl (7.4-10.4); Monocytes Absolute Auto 0.9 K/mm3 (0.1-0.6); Neutrophils Absolute Auto 7.2 K/mm3 (1.3-6.7); Neutrophils Percent Auto 74.7 % (45.5-73.1); Platelet Count Result 289 k/mm3 (150-375); Red Blood Count 5.43 M/mm3 (4.6-6.20); Red Cell Distribution Width 14.5 % (11.5-14.5); White Blood Count 9.7 K/mm3 (4.5-10.0)
[2025-01-02 13:57] LABS: Add Urine Microscopic? YES; Appearance Urine Clear (Clear); Bacteria Urine None Seen /hpf; Bilirubin Urine Negative (Negative); Blood Urine Negative (Negative); Color Urine Yellow (Yellow); Glucose Urine UA 2+ mg/dL (Negative); Ketones Urine 1+ mg/dL (Negative); Leukocyte Esterase Ur Negative LEU/UL (Negative); Nitrate Urine Negative (Negative); Non Pathogenic Casts 0-2; Protein Urine Trace mg/dL (Negative); RBC Urine 0-2 /hpf (0-2); Squamous Epithelial Cell Urine None Seen /hpf (Few); WBC Urine 0-5 /hpf (0-3)
--- OUTSIDE RECORDS SUMMARY | 2025-01-02 14:03 | XMS_ITS | Clinical Summary ---
Author Organization [facility] Address [address] [place] [address] Phone Care Team Providers Care Continuous Miner Name Role Phone Blaze Paulino MD Primary Care Provider [phone] Allergies No known active allergies Medications indapamide [...] Type Department Care Team Description 10/22/2024 Refill [facility] [address] [facility] [address] [place] [address] Sarah Corey NP from Last 3 Months [...] Comments Blood Pressure 134/82 10/27/2023 9:04 AM SPORT[facility]ERSONS Pulse 102 10/27/2023 9:04 AM [facility] Temperature - - Respiratory Rate - - Oxygen Saturation 94% 04/28/2023 8:50 AM CDT Inhaled Oxygen Concentration - - Weight 93.9 kg (207 lb) 10/27/2023 9:04 AM [facility] Height 172.7 cm (5' 8 ) 10/27/2023 9:04 AM [facility] Body Mass Index 31.47 10/27/2023 9:04 AM [facility] Plan of Treatment Upcoming Encounters Date Type Department Care Team ([facility] Contact Info) Description 01/03/2025 9:40 AM CDT Office Visit [facility] [address] [facility] [address] [place] [address] Sarah Corey NP [address] [address] Health Maintenance Due Date Last Done Comments Diabetic Foot Exam 12/10/1979 Ophthalmology Exam 12/10/1979 Pneumococcal PPSV23 Highest Risk Adult (1 of 3 - PCV13 ) 1988 Influenza Vaccine (Season Ended) 2025 Insurance [place] Care Teams Continuous Miner Relationship Specialty Start Date End Date Blaze Paulino MD PCP - General 11/18/21
--- OUTSIDE RECORDS SUMMARY | 2025-01-02 14:03 | XMS_ITS | Clinical Summary ---
Author Organization [facility] Address [facility] [place] [address] Care Team Providers Care Marine Engineer Name Role Phone Unavailable Primary Care Provider [...]
--- OUTSIDE RECORDS SUMMARY | 2025-01-02 14:03 | XMS_ITS | Clinical Summary ---
Author Organization [facility] Address [address] [place] [address] Care Team Providers Care Taxation Accountant Name Role Phone Blaze Paulino MD Primary Care Provider [phone] Allergies No known active allergies Medications budesonide-form [...] 10/25/2023 Assessment & Plan (10/25/2023 12:27 PM HOME ECONOMICS TEACHER): He has Pretty significant sinusitis on his [...] 02/21/2023 Assessment & Plan (10/11/2023 1:06 PM HOME ECONOMICS TEACHER): This is a chronic condition which is [...] 01/04/2023 Assessment & Plan (10/25/2023 12:26 PM HOME ECONOMICS TEACHER): He does have a severely deviated nasal [...] 01/04/2023 Assessment & Plan (10/25/2023 12:34 PM HOME ECONOMICS TEACHER): This is likely due to the deviated [...] 03/10/2022 Assessment & Plan (10/11/2023 1:25 PM HOME ECONOMICS TEACHER): This is a chronic condition which is [...] rosuvastatin. Assessment & Plan (11/10/2022 2:33 PM HOME ECONOMICS TEACHER): This is a chronic condition which is [...] fenofibrate Assessment & Plan (07/13/2022 2:49 PM HOME ECONOMICS TEACHER): This is a chronic condition which is [...] Type Department Care Team Description 11/25/2024 Telephone [facility] Otolaryngology [address] [facility] [address] [place] [address] [place] [address] Meggan Martin Au.D. from Last [...] cigarettes, uncomplicated EGFR Routine 10/11/2023 1:28 PM HOME ECONOMICS TEACHER Type 2 diabetes mellitus with stage 2 chronic kidney disease, with long-term current use of insulin (HCC) LIPID PANEL Routine 10/11/2023 1:28 PM HOME ECONOMICS TEACHER Type 2 diabetes mellitus with stage 2 chronic kidney disease, with long-term current use of insulin (HCC) ALBUMIN CREATININE RATIO, URINE Routine 10/11/2023 1:28 PM HOME ECONOMICS TEACHER Type 2 diabetes mellitus with stage 2 chronic kidney disease, with long-term current use of insulin (HCC) POCT HEMOGLOBIN A1C Routine 10/11/2023 1:12 PM HOME ECONOMICS TEACHER Type 2 diabetes mellitus with stage 2 [...] Keanu Packer D.O. PS: PS Report ID: [id number] Reading Location: [id number] Procedure Note Keanu Packer DO - 12/15/2023 [...] Keanu Packer D.O. PS: PINA Report ID: [id number] Reading Location: [place] [address] us Jose Snow MD IMG CT PROCEDURES Nevaeh l Result * eGFR (10/11/2023 1:28 PM HOME ECONOMICS TEACHER) eGFR 101 mL/min/1. 73 m2 PHOEBE STEVENS [...] last reviewed 2021. Blood 10/11/2023 1:28 PM HOME ECONOMICS TEACHER 10/11/2023 3:51 PM HOME ECONOMICS TEACHER us [employer] SILVERWARE BUFFER LAB BLOOD ORDERABLES Final Resu lt PHOEBE STEVENS (NEY) 1 [facility] Department [place] [address] * Albumin Creatinine Ratio, Urine (10/11/2023 1:28 PM HOME ECONOMICS TEACHER) Albumin Ur 49.6 mg/L PHOEBE Warren (NEY) Comment: Interpretive Data No reference range established. Current interpretive data was last revised 2019. Testing performed by: [facility], [address] [place] [address]., [address] Creatinine Ur 231.4 mg/dL PHOEBE STEVENS (NEY) Comment: Interpretive Data No reference range established. Current interpretive data was last revised 2019. Testing performed by: [facility], [address] [place] [address]., [address] Albumin Creatinine Ratio, Ur 21 1 - 29 mg/g PHOEBE STEVENS (NEY) Comment:Testing performed by : [facility], [address] [place] [address]., [address] Urine 10/11/2023 1:28 PM HOME ECONOMICS TEACHER 10/11/2023 7:21 PM HOME ECONOMICS TEACHER us [employer] NP LAB URINE ORDERABLES Final Resu lt PHOEBE STEVENS (NEY) 1 [facility] Department [place] [address] * Lipid panel (10/11/2023 1:28 PM HOME ECONOMICS TEACHER) Cholesterol 142 30 - 199 mg/dL PHOEBE [...] [facility] (NEY) Blood 10/11/2023 1:28 PM HOME ECONOMICS TEACHER 10/11/2023 3:51 PM HOME ECONOMICS TEACHER Narrative PHOEBE STEVENS (NEY) - 10/11/2023 4:37 PM HOME ECONOMICS TEACHER These lab test should be done fasting. This means do not eat or drink for at least 12 hours prior to getting your blood drawn. [employer] NP LAB BLOOD ORDERABLES Final Resu lt [facility]OE[facility] STEVENS (NEY) 1 [facility] Department [place] [address] * POCT hemoglobin A1c (10/11/2023 1:12 PM HOME ECONOMICS TEACHER) Hemoglobin A1C, POC 5.8 % Blood 10/11/2023 1:12 PM HOME ECONOMICS TEACHER [employer] NP POINT OF CARE TEST ORDERABLES F inal Result from Last 3 Months or Most Recently Relevant to Health Maintenance Insurance [facility] OOS BLUE ACC CHOICE OOS BLUE ACC CHOICE OOS Care Teams Taxation Accountant Relationship Specialty Start Date End Date Blaze Paulino MD PCP - General Emergency Medicine 05/03/22
--- OUTSIDE RECORDS SUMMARY | 2025-01-02 14:03 | XMS_ITS | Referral Summary ---
Author Organization [facility] Address [address] [place] [address] Care Team Providers Care Corrugated Sheet Material Sheeter Name Role Phone Blaze aPulino MD Primary Care Provider [phone] Encounters Date Type Department Care Team Description 11/25/2024 Telephone [facility] Otolaryngology [address] [facility] 11th [place] [address] [place] [address] Meggan Martin Au.D. from Last 3 Months [...] 10/25/2023 Assessment & Plan (10/25/2023 12:27 PM FINISHED GOODS PLANNER): He has Pretty significant sinusitis on his [...] 02/21/2023 Assessment & Plan (10/11/2023 1:06 PM FINISHED GOODS PLANNER): This is a chronic condition which is [...] 01/04/2023 Assessment & Plan (10/25/2023 12:26 PM FINISHED GOODS PLANNER): He does have a severely deviated nasal [...] 01/04/2023 Assessment & Plan (10/25/2023 12:34 PM FINISHED GOODS PLANNER): This is likely due to the deviated [...] 03/10/2022 Assessment & Plan (10/11/2023 1:25 PM FINISHED GOODS PLANNER): This is a chronic condition which is [...] rosuvastatin. Assessment & Plan (11/10/2022 2:33 PM FINISHED GOODS PLANNER): This is a chronic condition which is [...] fenofibrate Assessment & Plan (07/13/2022 2:49 PM FINISHED GOODS PLANNER): This is a chronic condition which is [...] cigarettes, uncomplicated EGFR Routine 10/11/2023 1:28 PM FINISHED GOODS PLANNER Type 2 diabetes mellitus with stage 2 chronic kidney disease, with long-term current use of insulin (HCC) LIPID PANEL Routine 10/11/2023 1:28 PM FINISHED GOODS PLANNER Type 2 diabetes mellitus with stage 2 chronic kidney disease, with long-term current use of insulin (HCC) ALBUMIN CREATININE RATIO, URINE Routine 10/11/2023 1:28 PM FINISHED GOODS PLANNER Type 2 diabetes mellitus with stage 2 chronic kidney disease, with long-term current use of insulin (HCC) POCT HEMOGLOBIN A1C Routine 10/11/2023 1:12 PM FINISHED GOODS PLANNER Type 2 diabetes mellitus with stage 2 [...] Keanu Packer D.O. PS: PS Report ID: [id number] Reading Location: [id number] Procedure Note Keanu Packer, DO - 12/15/2023 [...] Keanu Packer D.O. PS: PS Report ID: [id number] Reading Location: [place] [address] Jose Snow MD IMG CT PROCEDURES Nevaeh l Result * eGFR (10/11/2023 1:28 PM FINISHED GOODS PLANNER) eGFR 101 mL/min/1. 73 m2 PHOEBE STEVENS [...] last reviewed 2021. Blood 10/11/2023 1:28 PM FINISHED GOODS PLANNER 10/11/2023 3:51 PM FINISHED GOODS PLANNER [employer] MASSAGE THERAPIST LAB BLOOD ORDERABLES Final Resu lt Performing Organization Address [facility] Co de Phone Number PHOE[facility] STEVENS (NEY) 1 [facility] [place] [address] * Albumin Creatinine Ratio, Urine (10/11/2023 1:28 PM FINISHED GOODS PLANNER) Albumin Ur 49.6 mg/L [facility] (NEY) Comment: Interpretive Data No reference range established. Current interpretive data was last revised 2019. Testing performed by: [facility], [address] [place] [address]., [address] Creatinine Ur 231.4 mg/dL PHOEBE STEVENS (NEY) Comment: Interpretive Data No reference range established. Current interpretive data was last revised 2019. Testing performed by: [facility], [address] [place] [address]., [address] Albumin Creatinine Ratio, Ur 21 1 - 29 mg/g [facility] (NEY) Comment:Testing performed by : [facility], [address] [place] [address]., [address] Urine 10/11/2023 1:28 PM FINISHED GOODS PLANNER 10/11/2023 7:21 PM FINISHED GOODS PLANNER us [employer] NP LAB URINE ORDERABLES Final Resu lt Performing Organization Address [facility] Co de Phone Number [facility] (NEY) 1 [facility] [place] [address] * Lipid panel (10/11/2023 1:28 PM FINISHED GOODS PLANNER) Cholesterol 142 30 - 199 mg/dL PHOEBE [...] on 2018. Chol/HDL ratio 3 ANGE STEVENS ([place]) Blood 10/11/2023 1:28 PM FINISHED GOODS PLANNER 10/11/2023 3:51 PM FINISHED GOODS PLANNER Narrative PHOEBE RODNEY ([place]) - 10/11/2023 4:37 PM FINISHED GOODS PLANNER These lab test should be done fasting. This means do not eat or drink for at least 12 hours prior to getting your blood drawn. [employer] NP LAB BLOOD ORDERABLES Final Resu lt [facility]OEBE STEVENS (NEY) 1 [facility] Department [place] [address] * POCT hemoglobin A1c (10/11/2023 1:12 PM FINISHED GOODS PLANNER) Hemoglobin A1C, POC 5.8 % Blood 10/11/2023 1:12 PM FINISHED GOODS PLANNER [employer] NP POINT OF CARE TEST ORDERABLES F inal Result from Last 3 Months or Most Recently Relevant to Health Maintenance Insurance [place] [id number] BLUE ACC CHOICE OOS BLUE ACC CHOICE OOS Care Teams Corrugated Sheet Material Sheeter Relationship Specialty Start Date End Date Blaze Paulino MD PCP - General Emergency Medicine 05/03/22
[2025-01-02 14:08] LABS: Alanine Aminotransferase 22 U/L (6-50); Albumin Level 4.7 g/dL (3.5-5.1); Alkaline Phosphatase 106 U/L (38-126); Anion Gap 12 mmol/L (4-12); Aspartate Amino Transferase 29 U/L (17-59); Bilirubin,Total 0.9 mg/dL (0.2-1.3); Blood Urea Nitrogen 10 mg/dL (9-20); Carbon Dioxide 30 mmol/L (22-30); Chloride 91 mmol/L (98-107); Estimated CRCL calculation 86 ml/min; Estimated Glomerular Filt Rate > 60; Glucose 110 mg/dL (65-110); Lipase 71 U/L (23-300); Potassium 3.1 mmol/L (3.4-5.0); Sodium 133 mmol/L (137-145)
[2025-01-02 15:28] VITALS: BP 126/75; PULSE 94; RESP 17; O2SAT 97
== END 2025-01-02 16:16 | disposition home or self-care (01) ==
PROVIDERS: Registered Nurse; Emergency Provider Emergency Medicine; PCP Emergency Medicine
DX: K40.90 Unilateral inguinal hernia, without obstruction or gangrene, not specified as recurrent (principal); I10 Essential (primary) hypertension; E11.9 Type 2 diabetes mellitus without complications; E78.5 Hyperlipidemia, unspecified; N40.0 Benign prostatic hyperplasia without lower urinary tract symptoms; K58.9 Irritable bowel syndrome, unspecified; K21.9 Gastro-esophageal reflux disease without esophagitis; M19.90 Unspecified osteoarthritis, unspecified site; M47.812 Spondylosis without myelopathy or radiculopathy, cervical region; M10.9 Gout, unspecified; F41.9 Anxiety disorder, unspecified; F17.210 Nicotine dependence, cigarettes, uncomplicated; Z86.0101 Personal history of adenomatous and serrated colon polyps; Z90.49 Acquired absence of other specified parts of digestive tract; Z79.85 Long-term (current) use of injectable non-insulin antidiabetic drugs; Z79.899 Other long term (current) drug therapy
CPT/HCPCS: 36415; 74177; 80053; 81001; 83690; 85025; 99284; Q9967

== ENCOUNTER 2025-02-01 12:14 | Outpatient (CLI) | payer BC, SELFPAY ==
--- OUTSIDE RECORDS SUMMARY | 2025-02-01 12:20 | XMS_ITS | Clinical Summary ---
Author Organization [facility] Address [address] [place] [address] Phone Care Team Providers Care Liquid Sugar Fortifier Name Role Phone Blaze Paulino MD Primary Care Provider [phone] Allergies No known active allergies Medications indapamide [...] 05/21/20 22 Chronic obstructive pulmonary disease 05/21/2022 Family History Medical History Relation Comments Diabetes [...] Comments Blood Pressure 134/82 10/27/2023 9:04 AM INSOLE STIFFENER Pulse 102 10/27/2023 9:04 AM INSOLE STIFFENER Temperature - - Respiratory Rate - - Oxygen Saturation 94% 04/28/2023 8:50 AM CDT Inhaled Oxygen Concentration - - Weight 93.9 kg (207 lb) 10/27/2023 9:04 AM INSOLE STIFFENER Height 172.7 cm (5' 8) 10/27/2023 9:04 AM INSOLE STIFFENER Body Mass Index 31.47 10/27/2023 9:04 AM INSOLE STIFFENER Plan of Treatment Health Maintenance Due Date Last Done Comments Diabetic Foot Exam 12/10/1979 Ophthalmology Exam 12/10/1979 Pneumococcal PPSV23 Highest Risk Adult (1 of 3 - PCV13 ) 1988 Influenza Vaccine (Season Ended) 2025 Insurance Care Teams Liquid Sugar Fortifier Relationship Specialty Start Date End Date Blaze Paulino MD PCP - General 11/18/21
--- OUTSIDE RECORDS SUMMARY | 2025-02-01 12:20 | XMS_ITS | Patient Health Record ---
Author Organization [facility] [place] ([address]) Address [address] [place] [address] Care Team Providers Care Otr Tanker Truck Driver Name Role Phone Blaze Paulino Primary Care Provider Aaliyah Mo Unavailable [phone] Reason For Referral No Information Problems Problem Type SNOMED Code ICD Code Onset Dates Problem Status W/U Status Risk Notes Problem Degeneration of cervical intervertebral disc (08914975) Other cervical disc degeneration, unspecified cervical region (M50.30) Active confirmed Problem Cervical radiculopathy (17737628) Radiculopathy, cervical region (M54.12) Active confirmed Problem Cervicalgia (93065397) Cervicalgia (M54.2) Active confirmed Problem Pain in right arm (881407179) Pain in right arm (M79.601) Active confirmed Problem Pain in left arm (077238212) Pain in left arm (M79.602) Active confirmed Plan Of Treatment No Information Insurance Providers Payer Name Payer Address Payer Phone Subscriber Number Group Number Insured Name Patient Relationship to Insured Coverage Start Date Coverage End Date [facility] [address] [place] [address] [phone] [id number] Alessio Iyer Self - patient is the insured 3 Medical (General) History Medical History History ICD Code DM2 COPD Cervical DDD
--- OUTSIDE RECORDS SUMMARY | 2025-02-01 12:20 | XMS_ITS | Referral Summary ---
Author Organization [facility] Medical Office Building B Address [address] [place] [address] Care Team Providers Care Nurse Practitioner Manager Name Role Phone Blaze Paulino MD Primary Care Provider [phone] Encounters Date Type Department Care Team Description 11/25/2024 Telephone [facility] Otolaryngology [address] 11th [place] [address] [place] [phone] Meggan Martin Au.D. from Last 3 Months [...] 10/25/2023 Assessment & Plan (10/25/2023 12:27 PM ELECTRICIAN JOURNEYMAN WIREMAN): He has Pretty significant sinusitis on his [...] 02/21/2023 Assessment & Plan (10/11/2023 1:06 PM ELECTRICIAN JOURNEYMAN WIREMAN): This is a chronic condition which is [...] 01/04/2023 Assessment & Plan (10/25/2023 12:26 PM ELECTRICIAN JOURNEYMAN WIREMAN): He does have a severely deviated nasal [...] 01/04/2023 Assessment & Plan (10/25/2023 12:34 PM ELECTRICIAN JOURNEYMAN WIREMAN): This is likely due to the deviated [...] 03/10/2022 Assessment & Plan (10/11/2023 1:25 PM ELECTRICIAN JOURNEYMAN WIREMAN): This is a chronic condition which is [...] rosuvastatin. Assessment & Plan (11/10/2022 2:33 PM ELECTRICIAN JOURNEYMAN WIREMAN): This is a chronic condition which is [...] fenofibrate Assessment & Plan (07/13/2022 2:49 PM ELECTRICIAN JOURNEYMAN WIREMAN): This is a chronic condition which is [...] 1:21 PM CDT Height 177.8 cm (5' 10) 12/20/2023 1:21 PM CDT Body Mass Index 31.14 12/20/2023 1:21 PM CDT Plan of Treatment Not on file Procedures Procedure Name Priority Date/Time Associated Diagnosis Comments CT LUNG CANCER SCREENING Schedule Routine, Read Routine (OP Routine) 12/15/2023 8:55 AM CDT Nicotine dependence, cigarettes, uncomplicated EGFR Routine 10/11/2023 1:28 PM ELECTRICIAN JOURNEYMAN WIREMAN Type 2 diabetes mellitus with stage 2 chronic kidney disease, with long-term current use of insulin (HCC) LIPID PANEL Routine 10/11/2023 1:28 PM ELECTRICIAN JOURNEYMAN WIREMAN Type 2 diabetes mellitus with stage 2 chronic kidney disease, with long-term current use of insulin (HCC) ALBUMIN CREATININE RATIO, URINE Routine 10/11/2023 1:28 PM ELECTRICIAN JOURNEYMAN WIREMAN Type 2 diabetes mellitus with stage 2 chronic kidney disease, with long-term current use of insulin (HCC) POCT HEMOGLOBIN A1C Routine 10/11/2023 1:12 PM ELECTRICIAN JOURNEYMAN WIREMAN Type 2 diabetes mellitus with stage 2 [...] Keanu Packer D.O. PS: PS Report ID: [id number] Reading Location: [id number] Procedure Note Keanu Packer, DO - 12/15/2023 [...] Keanu Packer D.O. PS: PS Report ID: [id number] Reading Location: [place] [address] Jose Snow MD IMG CT PROCEDURES Nevaeh l Result * eGFR (10/11/2023 1:28 PM ELECTRICIAN JOURNEYMAN WIREMAN) eGFR 101 mL/min/1. 73 m2 PHOEBE STEVENS [...] last reviewed 2021. Blood 10/11/2023 1:28 PM ELECTRICIAN JOURNEYMAN WIREMAN 10/11/2023 3:51 PM ELECTRICIAN JOURNEYMAN WIREMAN [employer] TONNAGE COMPILATION CLERK LAB BLOOD ORDERABLES Final Resu lt Performing Organization Address City/[facility] Co de Phone Number PHOEBE STEVENS (NEY) 1 [facility] [place] [address] * Albumin Creatinine Ratio, Urine (10/11/2023 1:28 PM ELECTRICIAN JOURNEYMAN WIREMAN) Albumin Ur 49.6 mg/L CERNER [facility] (NEY) Comment: Interpretive Data No reference range established. Current interpretive data was last revised 2019. Testing performed by: [facility], [address] [place] [address]., [address] Creatinine Ur 231.4 mg/dL PHOEBE STEVENS (NEY) Comment: Interpretive Data No reference range established. Current interpretive data was last revised 2019. Testing performed by: [facility], [address] [place] [address]., [address] Albumin Creatinine Ratio, Ur 21 1 - 29 mg/g [facility] (NEY) Comment:Testing performed by : [facility], [address] [place] [address]., [address] Urine 10/11/2023 1:28 PM ELECTRICIAN JOURNEYMAN WIREMAN 10/11/2023 7:21 PM ELECTRICIAN JOURNEYMAN WIREMAN us [employer] NP LAB URINE ORDERABLES Final Resu lt Performing Organization Address [facility] Co de Phone Number PH[facility] (NEY) 1 [facility] [place] [address] * Lipid panel (10/11/2023 1:28 PM ELECTRICIAN JOURNEYMAN WIREMAN) Cholesterol 142 30 - 199 mg/dL PHOEBE [...] on 2018. Chol/HDL ratio 3 ANGE STEVENS (ELIM) Blood 10/11/2023 1:28 PM ELECTRICIAN JOURNEYMAN WIREMAN 10/11/2023 3:51 PM ELECTRICIAN JOURNEYMAN WIREMAN Narrative PHOEBE RODNEY (ELIM) - 10/11/2023 4:37 PM ELECTRICIAN JOURNEYMAN WIREMAN These lab test should be done fasting. This means do not eat or drink for at least 12 hours prior to getting your blood drawn. [employer] NP LAB BLOOD ORDERABLES Final Resu lt PHOEBE STEVENS (NEY) 1 [facility] Department [place] [address] * POCT hemoglobin A1c (10/11/2023 1:12 PM ELECTRICIAN JOURNEYMAN WIREMAN) Hemoglobin A1C, POC 5.8 % Blood 10/11/2023 1:12 PM ELECTRICIAN JOURNEYMAN WIREMAN [employer] NP POINT OF CARE TEST ORDERABLES F inal Result from Last 3 Months or Most Recently Relevant to Health Maintenance Insurance [place] [id number] BLUE ACC CHOICE OOS BLUE ACC CHOICE OOS Care Teams Nurse Practitioner Manager Relationship Specialty Start Date End Date Blaze Paulino MD PCP - General Emergency Medicine 05/03/22
--- OUTSIDE RECORDS SUMMARY | 2025-02-01 12:20 | XMS_ITS | Clinical Summary ---
Author Organization [facility] Medical Office Building B Address [address] [place] [address] Care Team Providers Care Flagstone Layer Name Role Phone Blaze Paulino MD Primary Care Provider [phone] Allergies No known active allergies Medications budesonide-form [...] 10/25/2023 Assessment & Plan (10/25/2023 12:27 PM LINUX ADMIN): He has Pretty significant sinusitis on his [...] 02/21/2023 Assessment & Plan (10/11/2023 1:06 PM LINUX ADMIN): This is a chronic condition which is [...] 01/04/2023 Assessment & Plan (10/25/2023 12:26 PM LINUX ADMIN): He does have a severely deviated nasal [...] 01/04/2023 Assessment & Plan (10/25/2023 12:34 PM LINUX ADMIN): This is likely due to the deviated [...] 03/10/2022 Assessment & Plan (10/11/2023 1:25 PM LINUX ADMIN): This is a chronic condition which is [...] rosuvastatin. Assessment & Plan (11/10/2022 2:33 PM LINUX ADMIN): This is a chronic condition which is [...] fenofibrate Assessment & Plan (07/13/2022 2:49 PM LINUX ADMIN): This is a chronic condition which is [...] Description 11/25/2024 Telephone [facility] Otolaryngology [address] 11th [place] [address] [place] [address] Meggan Martin Au.D. from Last [...] cigarettes, uncomplicated EGFR Routine 10/11/2023 1:28 PM LINUX ADMIN Type 2 diabetes mellitus with stage 2 chronic kidney disease, with long-term current use of insulin (HCC) LIPID PANEL Routine 10/11/2023 1:28 PM LINUX ADMIN Type 2 diabetes mellitus with stage 2 chronic kidney disease, with long-term current use of insulin (HCC) ALBUMIN CREATININE RATIO, URINE Routine 10/11/2023 1:28 PM LINUX ADMIN Type 2 diabetes mellitus with stage 2 chronic kidney disease, with long-term current use of insulin (HCC) POCT HEMOGLOBIN A1C Routine 10/11/2023 1:12 PM LINUX ADMIN Type 2 diabetes mellitus with stage 2 [...] Keanu Packer D.O. PS: PS Report ID: [id number] Reading Location: [id number] Procedure Note Keanu Packer DO - 12/15/2023 [...] Keanu Packer D.O. PS: PINA Report ID: [id number] Reading Location: [place] [address] us Jose Snow MD IMG CT PROCEDURES Nevaeh l Result * eGFR (10/11/2023 1:28 PM LINUX ADMIN) eGFR 101 mL/min/1. 73 m2 PHOEBE STEVENS [...] last reviewed 2021. Blood 10/11/2023 1:28 PM LINUX ADMIN 10/11/2023 3:51 PM LINUX ADMIN us [employer] CASKET ASSEMBLER LAB BLOOD ORDERABLES Final Resu lt PHOEBE STEVENS (NEY) 1 [facility] Department [place] [address] * Albumin Creatinine Ratio, Urine (10/11/2023 1:28 PM LINUX ADMIN) Albumin Ur 49.6 mg/L PHOEBE Warren (NEY) Comment: Interpretive Data No reference range established. Current interpretive data was last revised 2019. Testing performed by: [facility], [address] [place] [address]., [address] Creatinine Ur 231.4 mg/dL PHOEBE STEVENS (NEY) Comment: Interpretive Data No reference range established. Current interpretive data was last revised 2019. Testing performed by: [facility], [address] [place] [address]., [address] Albumin Creatinine Ratio, Ur 21 1 - 29 mg/g PHOEBE STEVENS (NEY) Comment:Testing performed by : [facility], [address] [place] [address]., [address] Urine 10/11/2023 1:28 PM LINUX ADMIN 10/11/2023 7:21 PM LINUX ADMIN us [employer] NP LAB URINE ORDERABLES Final Resu lt PHOEBE STEVENS (NEY) 1 [facility] Department [place] [address] * Lipid panel (10/11/2023 1:28 PM LINUX ADMIN) Cholesterol 142 30 - 199 mg/dL PHOEBE [...] [facility] (NEY) Blood 10/11/2023 1:28 PM LINUX ADMIN 10/11/2023 3:51 PM LINUX ADMIN Narrative PHOEBE STEVENS (NEY) - 10/11/2023 4:37 PM LINUX ADMIN These lab test should be done fasting. This means do not eat or drink for at least 12 hours prior to getting your blood drawn. [employer] NP LAB BLOOD ORDERABLES Final Resu lt PHOEBE STEVENS (NEY) 1 [facility] Department [place] [address] * POCT hemoglobin A1c (10/11/2023 1:12 PM LINUX ADMIN) Hemoglobin A1C, POC 5.8 % Blood 10/11/2023 1:12 PM LINUX ADMIN [employer] NP POINT OF CARE TEST ORDERABLES F inal Result from Last 3 Months or Most Recently Relevant to Health Maintenance Insurance [facility] CHOICE OOS BLUE ACC CHOICE OOS BLUE ACC CHOICE OOS Care Teams Flagstone Layer Relationship Specialty Start Date End Date Blaze Paulino MD PCP - General Emergency Medicine 05/03/22
--- OUTSIDE RECORDS SUMMARY | 2025-02-01 12:20 | XMS_ITS | Data Portability ---
Author Organization [facility] Main Office Address [address] [place] [address] Care Team Providers Care Bath Design Sales Consultant Name Role Phone MILLICENT BISHOP Primary Care Provider MILLICENT BISHOP Referring Provider [phone] Assessment Encounter Date Assessment Date Assessment LastModified [...] As needed. Discussed gel injection and medial quality control projectionist brace as other tx options. All questions were answered. Patient verbalized understanding of treatment plan [email or web address] Not available 12/12/2024 12:47:36 Plan of Treatment Reminders Order Date Submit Date Provider Last Modified By Organization Details Last Modified Time Details Appointments None recorded. Lab None recorded. Referral physical therapist referral - [facility] 2023 024 [facility], [address], [place], [address], 4 15:32:28 Procedures injection/a spiration joint/bursa (PROC) 2024 025 [email or web address] In-Office Order, Internal Use Only DO Not Attach Compendium DO Not Attach Compendium, Do Not Delete/merge, [id number] 11:15:28 injection/a spiration joint/bursa (PROC) - in office procedure, administere d by provider 2023 024 [email or web address] In-Office Order, Internal Use Only DO Not Attach Compendium DO Not Attach Compendium, Do Not Delete/merge, [id number] 4 15:34:22 Surgeries None recorded. Imaging XR, knee, 4 or more view 2023 024 [email or web address] [facility], [address], [place], [address], 4 08:22:49 Medication Orders bupivacaine HCl 0.5 % (5 mg/mL) injection solution [address] [facility], [facility] [place], [address], 5 15:30:31 Kenalog 10 mg/mL suspension for injection [address] [facility], [address] [place] [address], [address], 5 15:30:31 Marcaine (PF) 0.5 % (5 mg/mL) injection solution [address] [facility], [facility] [place], [address], 4 16:31:29 Kenalog 10 mg/mL suspension for injection [address] [facility], [facility] [place], [address], 4 16:31:29 Patient TargetsNo targets recorded. Patient [...] more view No observ ation record ed. [email or web address] [facility] [place] [address], [place], [address], 04/18/2024 14:52:49 Result Notes None recorded. Problems Name Problem SNOMED Code Status Onset Date Resolution Date Notes Provider Name and Address Organization Details Recorded Time Pain of shoulder region 64128396 Active 2019 Not Available [facility] 3 13:12:36 Spinal stenosis in cervical region 08386343 Active 2019 Not Available [facility] 3 13:12:36 Pain of left knee joint 96673238725818 7 Active 2023 Audelia Ozuna, KAYE null, [place] [facility] [employer] 4 14:52:31 Problem Notes None recorded. Procedures Surgical History Date Name Laterality Status Provider Name and Address Organization Details Recorded Time 5 Ortho - Cortisone Injection completed Lynda Aguilar PA-C [address], [place], [address], [facility] 12/12/2024 12:48:02 4 Ortho - Cortisone Injection completed Mitesh Herring MD [address], [place], [address], [facility] 04/19/2024 00:25:57 Imaging Results None recorded. Procedure Notes None recorded. Medical Equipment None [...] 4 mL by injection route. 2024 active [facility]: 0003- [phone]- [phone] Not Available Not Available [...] active Not Available Not Available Not Available [employer] Neville 3 Sensor device active Not Available Not Available Not Available Vitals Date Recorded Body height Body mass index (BMI) Body weight Provider Name and Address Organization Details Last Updated DateTime 12/12/2024 177.8 cm 31.6 kg/m2 56297.32 g KAYE Beck [facility] 12/12/2024 10:49:30 Date Recorded Body height Body mass index (BMI) Body weight Provider Name and Address Organization Details Last Updated DateTime 04/18/2024 177.8 cm 31.6 kg/m2 47618.32 g Audelia Ozuna SHIREENVel [facility] 04/18/2024 14:49:45 Social History Question Answer Notes LastModified by Organizat ion Details LastModified Time Tobacco Smoking Status Current Every Day Smoker KAYE Beck [facility] 04/18/2024 14:51:34 What Was The Date Of Your Most Recent Tobacco Screening? 04/18/2024 [email or web address] Information not available 04/18/2024 Sex: Unknown Functional Status Question Answer Note LastModified by Organization D etails LastModified Time What is your level of alcohol consumption? Heavy [email or web address] Information not available 04/18/2024 Mental Status None recorded. Family History Relationship Description Onset Age of this Age Resolved Age Notes LastModified by Organization Details LastModified Time Mother Hypertensive disorder [email or web address] Not available 2023 14:51:05 Medical History Condition Response COPD Y DIABETES, TYPE Y GOUT Y HYPERTENSION Y Past Encounters Encounter ID Performer Location Encounter Start Date Encounter Closed Date Diagnosis/Indication Diagnosis SNOMED-CT Code Diagnosis ICD10 Code Diagnosis Note [id number] MD BHARAT [facility] [place] [address] [place] [address] 04/18/2024 14:30:27 04/18/2024 15:26:27 Pain of left knee joint 3437170144 18875 M25.739 [id number] MD CASIE [facility] [place] [address] [place] [address] 12/12/2024 10:46:58 12/12/2024 11:18:35 Pain of left knee joint 9023471076 07964 M25.562 Health Concerns Section Related Observation LastModified by Organization Detai ls LastModified Time None Recorded Concern Status LastModified by Organization Details LastModified Time None Recorded Advance Directives Directive None Recorded Payers Encounter Date Sequence Insurance Name Policy Number Policy Jarrett Covered Member ID Jarrett Member ID Guarantor Name 04/18/2024 1 [id number] [id number] Alessio [employer] Shireen [id number] Alessio Alcala Shireen 12/12/2024 1 [place] [id number] Alessio B Shireen [id number] Alessio B Shireen
== END 2025-02-01 12:15 | disposition home or self-care (01) ==
LOC: ANHSURGERY 12:18
PROVIDERS: PCP Emergency Medicine; Visit Provider Surgery
DX: Z01.818 Encounter for other preprocedural examination (principal); K40.90 Unilateral inguinal hernia, without obstruction or gangrene, not specified as recurrent; F17.210 Nicotine dependence, cigarettes, uncomplicated
CPT/HCPCS: 36415; 86850; 86900; 86901

== ENCOUNTER 2025-02-05 00:14 | Day surgery (SDC) | payer BC, SELFPAY ==
[2025-02-01 09:57] VITALS: BMI 28.0
--- NOTE | 2025-02-01 10:06 | PC.NURSE ---
Report to the Outpatient Waiting Room, entrance under the green pavilion located off [facility], at time _1100_ on date _[id number]_. Planned Procedure Time: _1pm_.? Time changes happen often and if your time is changed the preop area will call you the afternoon before. - You and your visitor will be asked to self-screen and do not enter if you have any COVID symptoms. Please call surgeon if you need to reschedule. - A mask is optional within the hospital at this time. Patients may have clear liquids (water, carbonated beverages, clear teas, apple juice) until 3 hours prior to surgery with a maximum of 20 ounces. - No food from midnight until time of surgery and no smoking, or chewing tobacco (or any form of nicotine). No chewing gum, candy or mints. Take only the following medications with a SIP of water on the morning of surgery: __None___ DO NOT STOP ANY OF YOUR OTHER PRESCRIPTION MEDICATIONS PRIOR TO SURGERY EXCEPT THE FOLLOWING Hold all vitamins and supplements for 3 days per anesthesiologist. Medications to discontinue per physician Date to take last dose Please no make-up, nail kuwaiti, hairspray, perfume, deodorant, or body powder the day of surgery.? No jewelry (including any body piercings) or valuables the day of surgery, leave them at home.? Please take a shower or bath the night before, or the morning of, surgery with an antibacterial soap.? Wear comfortable, loose fitting clothing. - Jewelry must be removed prior to entering the operating room.? Rings and piercings that are not removed may be cut off. - The hospital will not accept responsibility for valuables.? - Please leave all valuables, including medications, at home the day of surgery. If you are going home after surgery, a licensed special needs bus driver must drive you home.? - NO public transportation without another adult if you receive anesthesia. - We recommend that an adult stay with you for 24 hours following discharge. - We also recommend that you do not drive, make important decision, drink alcoholic beverages, or take any drugs that were not prescribed by your health care provider for at least 24 hours after your discharge time. Follow any additional instructions given to you from your surgeon. Telephone instructions given to __Jeff___and asked if any additional questions and then verbalized understanding. Patient advised to call surgeon office or pre surgery nurse liaison [phone] if any additional questions.
[2025-02-05] VITALS (7 sets, daily range): BP systolic 116–139; BP diastolic 68–80; PULSE 76–86; RESP 12–18; TEMP 36.6; O2SAT 94–97
--- OUTSIDE RECORDS SUMMARY | 2025-02-05 00:17 | XMS_ITS | Patient Health Record ---
Author Organization [facility] [place] ([address]) Address [address] [place] [address] Care Team Providers Care Pathology Manager Name Role Phone Blaze Paulino Primary Care Provider Aaliyah Mo Unavailable [phone] Reason For Referral No Information Problems Problem Type SNOMED Code ICD Code Onset Dates Problem Status W/U Status Risk Notes Problem Degeneration of cervical intervertebral disc (42058927) Other cervical disc degeneration, unspecified cervical region (M50.30) Active confirmed Problem Radiculopathy, cervical region (M54.12) Active confirmed Problem Cervicalgia (11616321) Cervicalgia (M54.2) Active confirmed Problem Pain in right arm (809017556) Pain in right arm (M79.601) Active confirmed Problem Pain in left arm (192078299) Pain in left arm (M79.602) Active confirmed Plan Of Treatment No Information Insurance Providers Payer Name Payer Address Payer Phone Subscriber Number Group Number Insured Name Patient Relationship to Insured Coverage Start Date Coverage End Date [facility] [address] [place] [address] [id number] Alessio Iyer Self - patient is the insured 3 Medical (General) History Medical History History ICD Code DM2 COPD Cervical DDD
--- OUTSIDE RECORDS SUMMARY | 2025-02-05 00:17 | XMS_ITS | Clinical Summary ---
Author Organization [facility] Medical Office Building B Address [address] [place] [address] Care Team Providers Care Welt Butter Hand Name Role Phone Blaze Paulino MD Primary Care Provider [phone] Allergies No known active allergies Medications budesonide-form [...] Ultra-Fine Mini Pen Needle 31 gauge x /16 needle USE 1 ONCE DAILY 2 Active [...] 10/25/2023 Assessment & Plan (10/25/2023 12:27 PM PHONE CIRCUIT OPERATOR): He has Pretty significant sinusitis on his [...] 02/21/2023 Assessment & Plan (10/11/2023 1:06 PM PHONE CIRCUIT OPERATOR): This is a chronic condition which is [...] 01/04/2023 Assessment & Plan (10/25/2023 12:26 PM PHONE CIRCUIT OPERATOR): He does have a severely deviated nasal [...] 01/04/2023 Assessment & Plan (10/25/2023 12:34 PM PHONE CIRCUIT OPERATOR): This is likely due to the deviated [...] 03/10/2022 Assessment & Plan (10/11/2023 1:25 PM PHONE CIRCUIT OPERATOR): This is a chronic condition which is [...] rosuvastatin. Assessment & Plan (11/10/2022 2:33 PM PHONE CIRCUIT OPERATOR): This is a chronic condition which is [...] fenofibrate Assessment & Plan (07/13/2022 2:49 PM PHONE CIRCUIT OPERATOR): This is a chronic condition which is [...] Type Department Care Team Description 11/25/2024 Telephone [facility] Otolaryngology [address] 11th [place] [address] [place] [address] Meggan Martin Au.D. from Last [...] cigarettes, uncomplicated EGFR Routine 10/11/2023 1:28 PM PHONE CIRCUIT OPERATOR Type 2 diabetes mellitus with stage 2 chronic kidney disease, with long-term current use of insulin (HCC) LIPID PANEL Routine 10/11/2023 1:28 PM PHONE CIRCUIT OPERATOR Type 2 diabetes mellitus with stage 2 chronic kidney disease, with long-term current use of insulin (HCC) ALBUMIN CREATININE RATIO, URINE Routine 10/11/2023 1:28 PM PHONE CIRCUIT OPERATOR Type 2 diabetes mellitus with stage 2 chronic kidney disease, with long-term current use of insulin (HCC) POCT HEMOGLOBIN A1C Routine 10/11/2023 1:12 PM PHONE CIRCUIT OPERATOR Type 2 diabetes mellitus with stage 2 [...] Keanu Packer D.O. PS: PS Report ID: [id number] Reading Location: [id number] Procedure Note Keanu Packer DO - 12/15/2023 [...] Keanu Packer D.O. PS: PINA Report ID: [id number] Reading Location: [place] [address] us Jose Snow MD IMG CT PROCEDURES Nevaeh l Result * eGFR (10/11/2023 1:28 PM PHONE CIRCUIT OPERATOR) eGFR 101 mL/min/1. 73 m2 PHOEBE STEVENS [...] last reviewed 2021. Blood 10/11/2023 1:28 PM PHONE CIRCUIT OPERATOR 10/11/2023 3:51 PM PHONE CIRCUIT OPERATOR us [employer] PROOF PRESS OPERATOR LAB BLOOD ORDERABLES Final Resu lt PHOEBE STEVENS (NEY) 1 [facility] Department [place] [address] * Albumin Creatinine Ratio, Urine (10/11/2023 1:28 PM PHONE CIRCUIT OPERATOR) Albumin Ur 49.6 mg/L PHOEBE Warren (NEY) Comment: Interpretive Data No reference range established. Current interpretive data was last revised 2019. Testing performed by: [facility], [address] [place] [address]., [address] Creatinine Ur 231.4 mg/dL PHOEBE STEVENS (NEY) Comment: Interpretive Data No reference range established. Current interpretive data was last revised 2019. Testing performed by: [facility], [address] [place] [address]., [address] Albumin Creatinine Ratio, Ur 21 1 - 29 mg/g PHOEBE STEVENS (NEY) Comment:Testing performed by : [facility], [address] [place] [address]., [address] Urine 10/11/2023 1:28 PM PHONE CIRCUIT OPERATOR 10/11/2023 7:21 PM PHONE CIRCUIT OPERATOR us [employer] NP LAB URINE ORDERABLES Final Resu lt PHOEBE STEVENS (NEY) 1 [facility] Department [place] [address] * Lipid panel (10/11/2023 1:28 PM PHONE CIRCUIT OPERATOR) Cholesterol 142 30 - 199 mg/dL PHOEBE [...] on 2018. HDL 47 >=40 mg/dL PHOEBE Warern (NEY) Comment: Interpretive Data Ages < or [...] [facility] (NEY) Blood 10/11/2023 1:28 PM PHONE CIRCUIT OPERATOR 10/11/2023 3:51 PM PHONE CIRCUIT OPERATOR Narrative PHOEBE STEVENS (NEY) - 10/11/2023 4:37 PM PHONE CIRCUIT OPERATOR These lab test should be done fasting. This means do not eat or drink for at least 12 hours prior to getting your blood drawn. [employer] NP LAB BLOOD ORDERABLES Final Resu lt PHOEBE STEVENS (NEY) 1 [facility] Department [place] [address] * POCT hemoglobin A1c (10/11/2023 1:12 PM PHONE CIRCUIT OPERATOR) Hemoglobin A1C, POC 5.8 % Blood 10/11/2023 1:12 PM PHONE CIRCUIT OPERATOR [employer] NP POINT OF CARE TEST ORDERABLES F inal Result from Last 3 Months or Most Recently Relevant to Health Maintenance Insurance [facility] CHOICE OOS BLUE ACC CHOICE OOS BLUE ACC CHOICE OOS Care Teams Welt Butter Hand Relationship Specialty Start Date End Date Blaze Paulino MD PCP - General Emergency Medicine 05/03/22
--- OUTSIDE RECORDS SUMMARY | 2025-02-05 00:17 | XMS_ITS | Referral Summary ---
Author Organization [facility] Medical Office Building [address] Address [address] [place] [address] Care Team Providers Care Substation Operator Transforming Name Role Phone Blaze Paulino MD Primary Care Provider [phone] Encounters Date Type Department Care Team Description 11/25/2024 Telephone [facility] Otolaryngology [address] 11[address] [place] [address] [place] [id number] Meggan Martin Au.D. from Last 3 Months [...] 10/25/2023 Assessment & Plan (10/25/2023 12:27 PM PROCESS CONTROL TECH): He has Pretty significant sinusitis on his [...] 02/21/2023 Assessment & Plan (10/11/2023 1:06 PM PROCESS CONTROL TECH): This is a chronic condition which is [...] 01/04/2023 Assessment & Plan (10/25/2023 12:26 PM PROCESS CONTROL TECH): He does have a severely deviated nasal [...] 01/04/2023 Assessment & Plan (10/25/2023 12:34 PM PROCESS CONTROL TECH): This is likely due to the deviated [...] 03/10/2022 Assessment & Plan (10/11/2023 1:25 PM PROCESS CONTROL TECH): This is a chronic condition which is [...] rosuvastatin. Assessment & Plan (11/10/2022 2:33 PM PROCESS CONTROL TECH): This is a chronic condition which is [...] fenofibrate Assessment & Plan (07/13/2022 2:49 PM PROCESS CONTROL TECH): This is a chronic condition which is [...] cigarettes, uncomplicated EGFR Routine 10/11/2023 1:28 PM PROCESS CONTROL TECH Type 2 diabetes mellitus with stage 2 chronic kidney disease, with long-term current use of insulin (HCC) LIPID PANEL Routine 10/11/2023 1:28 PM PROCESS CONTROL TECH Type 2 diabetes mellitus with stage 2 chronic kidney disease, with long-term current use of insulin (HCC) ALBUMIN CREATININE RATIO, URINE Routine 10/11/2023 1:28 PM PROCESS CONTROL TECH Type 2 diabetes mellitus with stage 2 chronic kidney disease, with long-term current use of insulin (HCC) POCT HEMOGLOBIN A1C Routine 10/11/2023 1:12 PM PROCESS CONTROL TECH Type 2 diabetes mellitus with stage 2 [...] Keanu Packer D.O. PS: PS Report ID: [id number] Reading Location: [id number] Procedure Note Keanu Packer, DO - 12/15/2023 [...] Keanu Packer D.O. PS: PS Report ID: [id number] Reading Location: [place] [address] Jose Snow MD IMG CT PROCEDURES Nevaeh l Result * eGFR (10/11/2023 1:28 PM PROCESS CONTROL TECH) eGFR 101 mL/min/1. 73 m2 [facility] [...] last reviewed 2021. Blood 10/11/2023 1:28 PM PROCESS CONTROL TECH 10/11/2023 3:51 PM PROCESS CONTROL TECH [employer] PLASTICS SCIENTIST LAB BLOOD ORDERABLES Final Resu lt Performing Organization Address City/[facility] Co de Phone Number [facility] ([place]) 1 [facility] [place] [address] * Albumin Creatinine Ratio, Urine (10/11/2023 1:28 PM PROCESS CONTROL TECH) Albumin Ur 49.6 mg/L [facility] ([place]) Comment: Interpretive Data No reference range established. Current interpretive data was last revised 2019. Testing performed by: [facility], [address] [place] [address]., [id number] Creatinine Ur 231.4 mg/dL [facility]EV[facility] ([place]) Comment: Interpretive Data No reference range established. Current interpretive data was last revised 2019. Testing performed by: [facility], [address] [place] [address]., [id number] Albumin Creatinine Ratio, Ur 21 1 - 29 mg/g [facility] ([place]) Comment:Testing performed by : [facility], [address] [place] [address]., [id number] Urine 10/11/2023 1:28 PM PROCESS CONTROL TECH 10/11/2023 7:21 PM PROCESS CONTROL TECH us [employer] NP LAB URINE ORDERABLES Final Resu lt Performing Organization Address [facility] Co de Phone Number [facility] ([place]) 1 [facility] [place] [address] * Lipid panel (10/11/2023 1:28 PM PROCESS CONTROL TECH) Cholesterol 142 30 - 199 mg/dL PH[facility] [...] on 2018. Chol/HDL ratio 3 [facility] ([place]) Blood 10/11/2023 1:28 PM PROCESS CONTROL TECH 10/11/2023 3:51 PM PROCESS CONTROL TECH Narrative [facility] ROD[facility] ([place]) - 10/11/2023 4:37 PM PROCESS CONTROL TECH These lab test should be done fasting. This means do not eat or drink for at least 12 hours prior to getting your blood drawn. [employer] NP LAB BLOOD ORDERABLES Final Resu lt [facility] ([place]) 1 [facility] [place] [address] * POCT hemoglobin A1c (10/11/2023 1:12 PM PROCESS CONTROL TECH) Hemoglobin A1C, POC 5.8 % Blood 10/11/2023 1:12 PM PROCESS CONTROL TECH [employer] NP POINT OF CARE TEST ORDERABLES F inal Result from Last 3 Months or Most Recently Relevant to Health Maintenance Insurance [place] [id number] BLUE ACC CHOICE OOS BLUE ACC CHOICE OOS Care Teams Substation Operator Transforming Relationship Specialty Start Date End Date Blaze Paulino MD PCP - General Emergency Medicine 05/03/22
--- OUTSIDE RECORDS SUMMARY | 2025-02-05 00:17 | XMS_ITS | Clinical Summary ---
Author Organization [facility] Address [address] [place] [phone] Phone Care Team Providers Care Gate Person Name Role Phone Blaze Paulino MD Primary Care Provider [phone] Allergies No known active allergies Medications indapamide [...] Serum creatinine raised 05/06 Renal insufficiency 05/21/20 Chronic obstructive pulmonary disease 05/21/2022 Family History [...] Comments Blood Pressure 134/82 10/27/2023 9:04 AM GEOSPATIAL ENGINEER Pulse 102 10/27/2023 9:04 AM GEOSPATIAL ENGINEER Temperature - - Respiratory Rate - - Oxygen Saturation 94% 04/28/2023 8:50 AM CDT Inhaled Oxygen Concentration - - Weight 93.9 kg (207 lb) 10/27/2023 9:04 AM GEOSPATIAL ENGINEER Height 172.7 cm (5' 8) 10/27/2023 9:04 AM GEOSPATIAL ENGINEER Body Mass Index 31.47 10/27/2023 9:04 AM GEOSPATIAL ENGINEER Plan of Treatment Health Maintenance Due Date Last Done Comments Diabetic Foot Exam 12/10/1979 Ophthalmology Exam 12/10/1979 Pneumococcal PPSV23 Highest Risk Adult (1 of 3 - PCV13 ) 1988 Influenza Vaccine (Season Ended) 2025 Insurance Care Teams Gate Person Relationship Specialty Start Date End Date Blaze Paulino MD PCP - General 11/18/21
[2025-02-05 11:50] LABS: Glucose Point of Care 121 mg/dl (65-105)
--- NOTE | 2025-02-05 13:00 | WPDHPUPDATE1 ---
History and Physical Update Update Date/Time: 02/05/25 13:00 History and Physical has been reviewed, including an updated exam of the patient. There are NO changes in the patient's condition. Risks, benefits, and alternatives have been discussed and questions answered. Patient agrees to proceed with procedure.
--- NOTE | 2025-02-05 13:25 | WPDANESEPPF ---
Anes - Initial Pre Proc Eval Procedure: Operation Date: 02/05/25 13:00 Proposed Procedures p Laparoscopic Right Inguinal Hernia Repair with Mesh, Davinci Assisted - Drew Swain DO Date/Time: 02/05/25 13:25 Surgeon: Drew Swain DO Pre Op Diagnosis: right inguinal hernia Patient Data Age: 54 Gender: M Height: 1.78 m Weight: 88.6 kg Allergies Allergy/AdvReac Type Severity Reaction Status Date / Time No Known Allergies Allergy Verified 02/01/25 09:51 Home Medications ?Medication ?Instructions ?Recorded ?Confirmed ?Type blood-glucose meter #1 ea 12/19/19 02/01/25 Rx flash glucose scanning reader #1 ea 03/17/21 02/01/25 Rx (FreeStyle Neville 2 [place]) flash glucose sensor (FreeStyle #1 ea 03/17/21 02/01/25 Rx Neville 2 Sensor kit) omeprazole 40 mg capsule,delayed See Rx Instructions .Route 05/31/23 02/01/25 Rx release .COMPLEX #90 caps albuterol sulfate 90 mcg/actuation 2 puff inhalation Q4-6H PRN 11/23/24 02/01/25 Rx aerosol inhaler shortness of breath or wheezing 30 days #8.5 grams allopurinol 100 mg tablet 100 mg PO DAILY 11/23/24 02/01/25 History dapagliflozin propanediol 10 mg 10 mg PO DAILY 11/23/24 02/01/25 History tablet (Farxiga) dulaglutide 3 mg/0.5 mL 3 mg subcut WEEKLY 11/23/24 02/01/25 History subcutaneous pen injector ([facility]) indapamide 2.5 mg tablet 2.5 mg PO DAILY 11/23/24 02/01/25 History ondansetron 4 mg disintegrating 4 mg PO Q6H PRN nausea and 11/23/24 02/01/25 Rx tablet vomiting 3 days #12 tabs rosuvastatin 20 mg tablet 20 mg PO HS 11/23/24 02/01/25 History amitriptyline 25 mg tablet 25 mg PO HS 02/01/25 02/01/25 History losartan 50 mg tablet 50 mg PO DAILY 02/01/25 02/01/25 History Laboratory Tests 02/05/25 11:45 POC Capillary Glucose 121 H mg/dl (65-105) Patient hx anesthesia problems: none Family hx anesthesia problems: none Results Review: All pre-operative results and documents have been reviewed as part of the pre-operative evaluation. [facility] Past Medical History Medical History (Updated 01/25/25 @ 10:17 by Chelly Vasquez) COPD (chronic obstructive pulmonary disease) IBS (irritable bowel syndrome) GERD (gastroesophageal reflux disease) Hx of adenomatous colonic polyps Tobacco dependence Obesity (BMI 30-39.9) Hemorrhoids Irritable bowel syndrome BPH (benign prostatic hyperplasia) Dyslipidemia Type 2 diabetes mellitus without complications Hyponatremia Polyarthralgia Benign hypertension (~03/2019) Anxiety GERD (gastroesophageal reflux disease) Unspecified osteoarthritis, unspecified site Hypokalemia Hypogonadism Diverticulitis of colon with perforation Degenerative disc disease Cervical spondylosis Gout History of diverticular abscess (~2004) Surgical History Surgical History S/P colostomy takedown 2006 History of hemorrhoidectomy 01/2021 History of partial colectomy 2004 - secondary to perforated diverticulitis History of incisional hernia repair 2006 Family History Family History Father Diabetes mellitus Social History Social History (Updated 01/25/25 @ 09:54 by Jesse Funez MA) Smoking packs per day: 1 Smoking cigarettes per day: 20.0 Years smoked: 40 Smoking pack-years: 40.00 Smoking status: Current every day smoker Tobacco type: cigarettes Second hand tobacco smoke exposure: Yes Additional smoking assessment comments: consume 1 pack of cigarettes daily Alcohol intake: current Drinks per week: 24 Alcohol use details: beer Substance use: current Substance use type: marijuana Do You Feel Safe in your Home?: Yes Lack of Transportation: No Lack of Food: Never True Current Housing: I Have Housing Concerned About Future Housing: No Difficulty Paying Gas/Electric Bills: No Difficulty Paying for Meds: No Currently Unemployed: No Education: High School Diploma/GED Difficulty w/ Childcare or Family Care: No Living arrangements: with family Gender identity (if verbalized by the patient): Male Spiritual care concerns: No Anes - Eval Final PreProcedure Day of Procedure 02/05/25 13:25 Patient weight: obese Heart: regular rate and rhythm Lungs: clear to auscultation Airway: Mallampati scale class II Neurological: alert and oriented Last oral intake: >/= 8 hours ASA classification: III Anesthetic plan: proceed Anesthesia type and monitoring: general ETT and standard monitoring Results Review: All pre-operative results and documents have been reviewed as part of the pre-operative evaluation. Informed Consent: The patient's anesthetic plan and its attendant risks and benefits were discussed with the patient/family/POA. Questions were solicited and answers provided to the satisfaction of the patient/family/POA.
[2025-02-05] MEDS: ceFAZolin 2 GM/D5W 50 ML 2 GM/50 ML BAG IVPB (13:38)
[2025-02-05] MEDS: BUPIVACAINE/EPINEPHRINE 0.5% 50 ML VIAL 30 ML INFILTRATE (14:13)
--- NOTE | 2025-02-05 16:19 | P.OP_ITS ---
Procedure Note - Detailed Date of Procedure 02/05/25 Pre-op Diagnosis right inguinal hernia Post-op Diagnosis Same (Indirect right inguinal hernia, extensive adhesions) Procedure Performed 1. Robotic assisted laparoscopic right inguinal hernia repair with mesh 2. Robotic assisted laparoscopic extensive adhesiolysis Surgeon Drew Swain DO Anesthesia General and Local (0.5% bupivacaine with epinephrine) Indications This is a 54-year-old man who presented with right groin pain and a bulge. He had noticed symptoms for about the past 2 months. Symptoms were worsening and he then went to the emergency department on 01/02/2025. He was found to have a reducible right inguinal hernia was instructed to follow up with his PCP. Was then referred to my office for further evaluation and treatment. Discussions were made with the patient about treatment options and decision was made to proceed with robotic assisted laparoscopic right inguinal hernia repair with mesh. Findings Robotic assisted laparoscopic right inguinal hernia repair with mesh was per formed. The patient a prior history of sigmoid colectomy with colostomy for diverticulitis and subsequent colostomy takedown. I entered into the abdominal cavity in the right upper quadrant. Significant adhesions were identified of the long the right lower quadrant and mid abdomen. I was able to place 2 other ports in the right lateral abdomen and upper midline. Careful adhesiolysis was performed using robotic scissors. There was a loop of small bowel densely adherent to the right lower quadrant right to the area of the inguinal hernia. There were also midline adhesions involving the small bowel, transverse colon, and omentum. There was also evidence of a prior incisional hernia in the midline periumbilical region and 2 or 3 loops of small bowel appeared densely adherent to the mesh. I attempted taking most of the adhesions down but the area where the mesh was densely adherent appeared too high risk for bowel injury therefore this was left alone. This did not appear to be affecting where I needed to work for the hernia repair. Adhesiolysis took about 70 minutes the total operating time which was 128 minutes. The total operating time was over twice as long as what would be expected for a typical uncomplicated robotic assisted laparoscopic right inguinal hernia repair. Blood loss was kept to a minimum with careful adhesiolysis. Once I was able to identify the lower midline abdomen and right lower quadrant abdominal wall, I was then able to perform the right inguinal hernia repair. A robotic transabdominal preperitoneal approach was utilized for repair. The patient was found have an indirect right inguinal hernia Once a wide enough preperitoneal pocket was created and the hernia sac was reduced,, then placed a large right 3DMax mid mesh overlying the entire right myopectineal orifice. No specimens were obtained for pathology. Careful thorough inspection was made around the entire abdominal cavity at the end and there did not appear to be any significant bleeding or bowel injuries. Description of Procedure Procedure as well as risks, benefits, and alternatives were discussed with the patient. Written consent was obtained and placed in chart prior to procedure. Patient was brought back to surgical suite. He was placed supine on operating table. Time-out was done to confirm patient and procedure. He was then intubated by the anesthesia department. His abdomen was prepped and draped in sterile fashion using chlorhexidine prep. 0.5% bupivacaine with epinephrine was infiltrated locally at each of the areas for port placement. An 8 mm incision was made in the right subcostal region and a 5 mm Optiview trocar was advanced through the abdominal layers under direct visualization. Once inside the abdominal cavity, carbon dioxide insufflation was used to create a pneumoperitoneum. The camera was inserted in the abdominal cavity was inspected. Massive dense adhesions were identified. The right lateral abdomen appeared to be free of any significant adhesions and I was able to place another 8 mm port in this location. I then took down a few adhesions in the upper midline abdomen just to the right of the falciform ligament using laparoscopic curved scissors. This then allowed me to place another 8 mm port in the upper midline abdomen under direct visualization. I then removed the 5 mm port and replaced this with an 8 mm port. The robotic arms were then secured to the ports and the camera and instruments were then inserted. I then to control the camera and instruments at the robotic console. I carefully inspected the abdominal cavity and began taking down the adhesions. There were many loops of small bowel up to the abdominal wall and right lower quadrant. These were carefully taken down using sharp dissection with robotic scissors. I did not use electrocautery anywhere where there were adhesions close to bowel. I then continued the adhesiolysis into the right lower quadrant and identified the right inguinal hernia. There was a loop of ileum going up into the hernia defect which was carefully taken down using sharp dissection and gentle retraction. Eventually I was able to clear enough of the small bowel adhesions from the right lower quadrant so that I could identify the hernia defect and the surrounding abdominal and pelvic wall. This appeared to be an indirect defect. I then continued the adhesiolysis medially to identify the midline lower abdominal wall. There appeared to be some omental adhesions to the abdominal wall which were taken down using scissors with electrocautery. Near the midline periumbilical region IA identified a previous mesh that was placed from a prior incisional hernia repair. There were some omental adhesions around this mesh which were taken down using scissors with of electrocautery. I then identified a couple loops of small bowel that were densely adherent to the mesh. I was unable to find a safe plane between the mesh and the loops of bowel to take these adhesions down. These loops of bowel did not appear to be causing obstruction and I did not want to risk a bowel injury further attempts at adhes iolysis therefore these loops of bowel were left adherent to the mesh. Did identify some transverse colon adhesions just superior to this area that were carefully taken down using robotic scissors. After extensive adhesiolysis allowing visualization of most of the abdominal wall from midline to the right lateral abdomen, I then carefully inspected the bowel and saw no signs of bowel injury or bleeding. I then moved my attention to the right lower quadrant to repair the hernia. A preperitoneal plane was created in the right lower quadrant using scissors with electrocautery. This was extended wide enough to allow for eventual mesh placement and then the dissection was carried caudally towards the deep inguinal ring. The hernia sac was then carefully reduced bowel preserving the cord contents in their location. The hernia sac and peritoneum were then dissected far enough posteriorly to allow for mesh placement. I then also dissected medially into the space of Retzius and identified the pubic arch and Sundar's ligament. There appeared to be wide enough space for the mesh placement and far enough posterior dissection. A large right 3DMax mid mesh was then placed into the abdominal cavity through 1 of the 8 mm ports. The mesh was then secured in place overlying the entire right myopectineal orifice. Mesh was then secured at Sundar's ligament using a 3-0 Vicryl simple interrupted suture. Two more sutures were then placed in the superior edge of the mesh medial and lateral to the inferior epigastric vessels. The mesh was carefully inspected and appeared to be sitting in proper position. The peritoneum edge appeared far enough posterior to allow for mesh placement to be sitting flat. The peritoneum was then closed over the mesh using a 3 0 V lock running absorbable suture. The repair was inspected and appeared secure. One final inspection was made around the abdominal cavity and no other abnormalities were noted. The instruments were then removed the camera was removed. The robotic arms were disengaged from the ports. The ports were then removed under direct visualization, the camera was removed and the pneumoperitoneum was released. Skin of each of the incisions was then approximated using 4-0 Monocryl subcuticular sutures. Exofin glue was then applied on top. The patient was then awakened from anesthesia, extubated, and transferred to recovery. Implants Large right Bard 3DMax mid mesh Estimated Blood Loss 20 Complications No immediate complications Condition Stable Disposition Same day [facility] Billing Surgery - Charge Forward: Surgery Billing
[2025-02-05] MEDS: LACTATED RINGERS 1,000 ML 30 ML IV CONT (16:20)
[2025-02-05] MEDS: fentaNYL CITRATE INJ (*CRX) 100 MCG/2 ML VIAL 25 MCG IV PUSH ×7 (16:35→17:15)
[2025-02-05 16:38] LABS: Glucose Point of Care 152 mg/dl (65-105)
[2025-02-05] MEDS: HYDROmorphone HCL INJ (*CRX) 1 MG/ML SYR 0.5 MG IV PUSH (17:05)
== END 2025-02-05 18:10 | disposition home or self-care (01) ==
PROVIDERS: PCP Emergency Medicine; Visit Provider Surgery
PROC: 8E0Y4CZ Robotic Assisted Procedure of Lower Extremity, Percutaneous Endoscopic Approach (ICD-10-PCS; CPT 49650; principal; 2025-02-05 13:00)
DX: K40.90 Unilateral inguinal hernia, without obstruction or gangrene, not specified as recurrent (principal); K66.0 Peritoneal adhesions (postprocedural) (postinfection); E11.9 Type 2 diabetes mellitus without complications; F17.210 Nicotine dependence, cigarettes, uncomplicated; F12.90 Cannabis use, unspecified, uncomplicated; E66.9 Obesity, unspecified; Z68.28 Body mass index [BMI] 28.0-28.9, adult
CPT/HCPCS: 49650; S2900; 82948; A9270; C1781; J0690; J1100; J1171; J1885; J2003; J2250; J2405; J2704; J3010; J7120

== ENCOUNTER 2025-05-22 13:25 | Emergency (ER) | payer BC, SELFPAY ==
--- NOTE | 2025-05-22 13:26 | ED.NAVMDI ---
HPI - Nausea/Vomiting/Diarrhea General Chief complaint: Nausea/Vomiting/Diarrhea Stated complaint: Nausea Time Seen by Provider: 05/22/25 13:25 Source: patient Mode of arrival: ambulatory Limitations: no limitations History of Present Illness HPI Narrative: Patient is a 54-year-old male who presents with nausea. Patient had IBS flare up last night and missed work today due to cramping and nausea. Denies any fever, chills, nausea, vomiting, diarrhea. Patient had hernia repair surgery in February Related Data Home Medications ?Medication ?Instructions ?Recorded ?Confirmed ?Last Taken ?Type allopurinol 100 mg tablet 100 mg PO DAILY 11/23/24 04/11/25 Unknown History dapagliflozin propanediol 10 mg 10 mg PO DAILY 11/23/24 04/11/25 Unknown History tablet (Farxiga) dulaglutide 3 mg/0.5 mL 3 mg subcut WEEKLY 11/23/24 04/11/25 Unknown History subcutaneous pen injector (Trulicity) indapamide 2.5 mg tablet 2.5 mg PO DAILY 11/23/24 04/11/25 Unknown History rosuvastatin 20 mg tablet 20 mg PO HS 11/23/24 04/11/25 Unknown History losartan 50 mg tablet 50 mg PO DAILY 02/01/25 04/11/25 Unknown History Allergies Allergy/AdvReac Type Severity Reaction Status Date / Time No Known Allergies Allergy Verified 05/22/25 13:41 Review of Systems Review of Systems: All systems reviewed & are unremarkable except as noted in HPI and below Constitutional: Constitutional: Denies body ache(s), Denies chills, Denies fatigue, Denies fever(s), Denies headache(s), Denies malaise and Denies weakness Eyes: Eyes: Denies blurry vision, Denies irritation and Denies loss of vision ENT: Denies otalgia, Denies headache(s), Denies nasal discharge, Denies sinus pain and Denies sore throat Cardiovascular: Cardiovascular: Denies chest pain, Denies irregular heart rhythm and Denies dyspnea Respiratory: Respiratory: Denies dyspnea Gastrointestinal: Gastrointestinal: Denies abdominal pain, Denies melena, Denies hematochezia, Denies diarrhea, Reports nausea and Denies vomiting Musculoskeletal: Musculoskeletal: Denies back pain, Denies myalgias and Denies arthralgias Integumentary/Breasts: Skin/Breast: Denies pruritus and Denies rash Neurologic: Denies headache(s), Denies loss of vision and Denies weakness Psychiatric: Psychiatric: Reports no additional psychiatric complaints Endocrine: Endocrine: Denies fatigue [facility] Past Medical History Medical History COPD (chronic obstructive pulmonary disease) IBS (irritable bowel syndrome) GERD (gastroesophageal reflux disease) Hx of adenomatous colonic polyps Tobacco dependence Obesity (BMI 30-39.9) Hemorrhoids Irritable bowel syndrome BPH (benign prostatic hyperplasia) Dyslipidemia Type 2 diabetes mellitus without complications Hyponatremia Polyarthralgia Benign hypertension (~03/2019) Anxiety GERD (gastroesophageal reflux disease) Unspecified osteoarthritis, unspecified site Hypokalemia Hypogonadism Diverticulitis of colon with perforation Degenerative disc disease Cervical spondylosis Gout History of diverticular abscess (~2004) Surgical History Surgical History H/O inguinal hernia repair 02/05/25 1. Robotic assisted laparoscopic right inguinal hernia repair with mesh 2. Robotic assisted laparoscopic extensive adhesiolysis Dr. Swain S/P colostomy takedown 2006 History of hemorrhoidectomy 01/2021 History of partial colectomy 2004 - secondary to perforated diverticulitis History of incisional hernia repair 2006 Family History Family History Father Diabetes mellitus Social History Social History Smoking packs per day: 1 Smoking cigarettes per day: 20.0 Years smoked: 40 Smoking pack-years: 40.00 Smoking status: Current every day smoker Tobacco type: cigarettes Second hand tobacco smoke exposure: Yes Additional smoking assessment comments: consume 1 pack of cigarettes daily Alcohol intake: current Drinks per week: 24 Alcohol use details: beer Substance use: current Substance use type: marijuana Do You Feel Safe in your Home?: Yes Lack of Transportation: No Lack of Food: Never True Current Housing: I Have Housing Concerned About Future Housing: No Difficulty Paying Gas/Electric Bills: No Difficulty Paying for Meds: No Currently Unemployed: No Education: High School Diploma/GED Difficulty w/ Childcare or Family Care: No Living arrangements: with family Gender identity (if verbalized by the patient): Male Spiritual care concerns: No Comments At time of signature, agree with nursing past medical, surgical, social and family history. There is no relevant family history pertinent to the presenting complaint. Exam Const: General: cooperative, healthy appearing, comfortable, no acute distress and well nourished Nutritional Appearance: well nourished Orientation/consciousness: patient oriented x3 Limitations: no limitations HENMT: Head: normal to inspection, normocephalic and atraumatic Ears: hearing grossly normal bilaterally and external ears normal Face/Nose/Sinus: Normal external nose present, normal facial exam and face symmetric Face and sinus: normal facial exam and face symmetric Mouth: Yes lip normal Eyes: General: appearance normal, both eyes and all related structures Alignment and Position: alignment normal and position normal Periorbital: periorbital findings normal Eyelids: eyelids normal Pupils: Equal, round and reactive pupils present EOM: EOMs intact bilaterally Neck: Neck: normal visual inspection, full ROM and supple Chest: Chest palpation & inspection: normal inspection of the chest Resp: Effort & Inspection: normal respiratory effort and able to speak in complete sentences Auscultation: clear to auscultation bilaterally Cardio: Rate: regular rate Rhythm: regular rhythm Heart sounds: S1 normal heart sound present and S2 normal heart sound present GI: Inspection: normal to inspection Skin: General skin exam: normal color and no rashes or lesions noted Neuro: General: patient oriented x3 and moves all extremities Cranial nerves: Yes Equal, round and reactive pupils present Speech: normal speech Gait exam (Neuro): Normal gait present Extrem: General: normal to inspection, full ROM and no edema Psych: Appearance: grossly normal and well kempt Mental Status: mental status grossly normal Speech and movement: Normal speech and movement present Affect: normal affect Attitude: cooperative Thought process: Normal thought process present Course Course Emergency Course: Patient is aware of diagnosis, understands and agrees to treatment plan. Anticipatory guidance given. Patient agrees to follow-up as directed and is aware of reasons to seek care at the emergency department. Portions of this record may have been created with voice recognition software Level of Care: Express Care Visit Vital Signs Vital signs: Reviewed MDM - Nausea/Vomiting/Diarrhea MDM Narrative Medical decision making narrative: Pt well hydrated appearing, in no respiratory distress, hemodynamically stable. Recommend supportive care. The patient is stable at time of discharge the clinical impression was discussed and the patient was given the opportunity to ask questions, which were addressed as completely as possible given the information available at present. Anticipatory guidance and return to care precautions were discussed and the importance of primary care follow-up was stressed and encouraged. The patient voiced understanding of the plan, indications to return, and the need for follow-up. Exam findings show no acute concerns or changes Patient is appropriate for outpatient treatment and follow-up. Differential Diagnosis Differential diagnosis: Likely traveler's diarrhea, food poisoning, gastroenteritis and other (IBS flare) Medical Records Attestation: I reviewed the patient's medical records. Discharge Plan Discharge Clinical Impression: Nausea Patient Disposition: Home Condition: Stable Instructions: Acute Nausea and Vomiting (ED) Additional Instructions: Stay hydrated. Take small sips of fluid containing electrolytes frequently(Body [place], Gatorade, Powerade, liquid IV). Eat small meals that her very bland including bananas, applesauce, rice, toast, boiled or grilled chicken, soup. Do not eat anything fried, spicy or overly acidic. You should go to the hospital if you experience return of persistent nausea and vomiting that does not resolve and does not allow you to tolerate any food or fluids, persistent fevers for greater than 2-3 more days, increasing abdominal pain that persists despite medications, persistent diarrhea, dizziness, syncope (fainting), or for any other concerns. Patient Language: [place] Prescriptions: New ondansetron 4 mg tablet,disintegrating 4 mg PO Q6-8H PRN (Reason: nausea and vomiting) Qty: 15 0RF No Action indapamide 2.5 mg tablet 2.5 mg PO DAILY allopurinol 100 mg tablet 100 mg PO DAILY rosuvastatin 20 mg tablet 20 mg PO HS dapagliflozin propanediol [Farxiga] 10 mg tablet 10 mg PO DAILY Trulicity 3 mg/0.5 mL pen injector 3 mg SUBCUT WEEKLY Patient Comments: Sundays albuterol sulfate 90 mcg/actuation HFA aerosol inhaler 2 puff inhalation Q4-6H PRN (Reason: shortness of breath or wheezing) 30 Days Qty: 8.5 0RF amitriptyline 50 mg tablet 50 mg PO QHS Qty: 90 3RF omeprazole 40 mg capsule,delayed release(DR/EC) See Rx Instructions .ROUTE .COMPLEX Qty: 90 3RF Dose Instruction: TAKE 1 CAPSULE DAILY BEFORE A MEAL Rx Instructions: TAKE 1 CAPSULE DAILY BEFORE A MEAL dicyclomine 10 mg capsule See Rx Instructions .ROUTE .COMPLEX Qty: 360 3RF Dose Instruction: TAKE 1 TO 2 CAPSULES EVERY 6 HOURS NEEDED FOR ABDOMINAL PAIN Rx Instructions: TAKE 1 TO 2 CAPSULES EVERY 6 HOURS NEEDED FOR ABDOMINAL PAIN (DME) FreeStyle [place] 2 [place] Misc See Rx Instructions .Route Qty: 1 0RF Rx Instructions: use As directed (DME) FreeStyle [place] 2 Sensor Kit See Rx Instructions .Route Qty: 1 0RF Rx Instructions: use As directed losartan 50 mg tablet 50 mg PO DAILY (DME) blood-glucose meter Kit See Rx Instructions .ROUTE .MEDSUPPLY Qty: 1 0RF Rx Instructions: Use to check blood sugar once daily fasting Follow-up/Referrals: Blaze Paulino MD [Primary Care Provider, Family Practice] - 3 Days Stand Alone Forms: Work/School Release IP Time of Disposition: 13:50
[2025-05-22 13:33] VITALS: BP 117/79; PULSE 101; RESP 18; TEMP 36.9; O2SAT 100
== END 2025-05-22 13:55 | disposition home or self-care (01) ==
PROVIDERS: Emergency Provider Nurse Practitioner Family; PCP Emergency Medicine
DX: R11.0 Nausea (principal); J44.9 Chronic obstructive pulmonary disease, unspecified; I10 Essential (primary) hypertension; N40.0 Benign prostatic hyperplasia without lower urinary tract symptoms; Z79.85 Long-term (current) use of injectable non-insulin antidiabetic drugs; E11.9 Type 2 diabetes mellitus without complications; K21.9 Gastro-esophageal reflux disease without esophagitis; E78.5 Hyperlipidemia, unspecified; M19.90 Unspecified osteoarthritis, unspecified site; M10.9 Gout, unspecified; E66.9 Obesity, unspecified; Z68.26 Body mass index [BMI] 26.0-26.9, adult; F17.210 Nicotine dependence, cigarettes, uncomplicated; F12.90 Cannabis use, unspecified, uncomplicated
CPT/HCPCS: 99213; G0463

== ENCOUNTER 2025-06-04 15:31 | Emergency (ER) | payer BC, SELFPAY ==
--- NOTE | 2025-06-04 15:33 | ED.NAVMDI ---
HPI - Nausea/Vomiting/Diarrhea General Chief complaint: Nausea/Vomiting/Diarrhea Stated complaint: IBS Time Seen by Provider: 06/04/25 15:32 Source: patient Mode of arrival: ambulatory Limitations: no limitations History of Present Illness HPI Narrative: Patient is a 54-year-old male who presents with an IBS flare. Patient states he had constipation and took medication to relieve constipation which led to severe diarrhea. Patient has history of diverticulitis and had bowel resection. Patient was seen here 13 days ago for similar complaint. Reports the Zofran helped a lot. Related Data Home Medications ?Medication ?Instructions ?Recorded ?Confirmed ?Last Taken ?Type allopurinol 100 mg tablet 100 mg PO DAILY 11/23/24 04/11/25 Unknown History dapagliflozin propanediol 10 mg 10 mg PO DAILY 11/23/24 04/11/25 Unknown History tablet (Farxiga) dulaglutide 3 mg/0.5 mL 3 mg subcut WEEKLY 11/23/24 04/11/25 Unknown History subcutaneous pen injector (Trulicity) indapamide 2.5 mg tablet 2.5 mg PO DAILY 11/23/24 04/11/25 Unknown History rosuvastatin 20 mg tablet 20 mg PO HS 11/23/24 04/11/25 Unknown History losartan 50 mg tablet 50 mg PO DAILY 02/01/25 04/11/25 Unknown History Allergies Allergy/AdvReac Type Severity Reaction Status Date / Time No Known Allergies Allergy Verified 06/04/25 15:45 Review of Systems Review of Systems: All systems reviewed & are unremarkable except as noted in HPI and below Constitutional: Constitutional: Denies body ache(s), Denies chills, Denies fatigue, Denies fever(s), Denies headache(s), Denies malaise and Denies weakness Eyes: Eyes: Denies blurry vision, Denies irritation and Denies loss of vision ENT: Denies otalgia, Denies headache(s), Denies nasal discharge, Denies sinus pain and Denies sore throat Cardiovascular: Cardiovascular: Denies chest pain, Denies irregular heart rhythm and Denies dyspnea Respiratory: Respiratory: Denies dyspnea Gastrointestinal: Gastrointestinal: Denies abdominal pain, Denies melena, Denies hematochezia, Reports constipation, Reports diarrhea, Reports nausea and Denies vomiting Musculoskeletal: Musculoskeletal: Denies back pain, Denies myalgias and Denies arthralgias Integumentary/Breasts: Skin/Breast: Denies pruritus and Denies rash Neurologic: Denies headache(s), Denies loss of vision and Denies weakness Psychiatric: Psychiatric: Reports no additional psychiatric complaints Endocrine: Endocrine: Denies fatigue COUNTS INCLUDE 234 BEDS AT THE [facility] Past Medical History Medical History COPD (chronic obstructive pulmonary disease) IBS (irritable bowel syndrome) GERD (gastroesophageal reflux disease) Hx of adenomatous colonic polyps Tobacco dependence Obesity (BMI 30-39.9) Hemorrhoids Irritable bowel syndrome BPH (benign prostatic hyperplasia) Dyslipidemia Type 2 diabetes mellitus without complications Hyponatremia Polyarthralgia Benign hypertension (~03/2019) Anxiety GERD (gastroesophageal reflux disease) Unspecified osteoarthritis, unspecified site Hypokalemia Hypogonadism Diverticulitis of colon with perforation Degenerative disc disease Cervical spondylosis Gout History of diverticular abscess (~2004) Surgical History Surgical History H/O inguinal hernia repair 02/05/25 1. Robotic assisted laparoscopic right inguinal hernia repair with mesh 2. Robotic assisted laparoscopic extensive adhesiolysis Dr. Swain S/P colostomy takedown 2006 History of hemorrhoidectomy 01/2021 History of partial colectomy 2004 - secondary to perforated diverticulitis History of incisional hernia repair 2006 Family History Family History Father Diabetes mellitus Social History Social History Smoking packs per day: 1 Smoking cigarettes per day: 20.0 Years smoked: 40 Smoking pack-years: 40.00 Smoking status: Current every day smoker Tobacco type: cigarettes Second hand tobacco smoke exposure: Yes Additional smoking assessment comments: consume 1 pack of cigarettes daily Alcohol intake: current Drinks per week: 24 Alcohol use details: beer Substance use: current Substance use type: marijuana Do You Feel Safe in your Home?: Yes Lack of Transportation: No Lack of Food: Never True Current Housing: I Have Housing Concerned About Future Housing: No Difficulty Paying Gas/Electric Bills: No Difficulty Paying for Meds: No Currently Unemployed: No Education: High School Diploma/GED Difficulty w/ Childcare or Family Care: No Living arrangements: with family Gender identity (if verbalized by the patient): Male Spiritual care concerns: No Comments At time of signature, agree with nursing past medical, surgical, social and family history. There is no relevant family history pertinent to the presenting complaint. Exam Const: General: cooperative, healthy appearing, comfortable, no acute distress and well nourished Nutritional Appearance: well nourished Orientation/consciousness: patient oriented x3 Limitations: no limitations HENMT: Head: normal to inspection, normocephalic and atraumatic Ears: hearing grossly normal bilaterally and external ears normal Face/Nose/Sinus: Normal external nose present, normal facial exam and face symmetric Face and sinus: normal facial exam and face symmetric Mouth: Yes lip normal Eyes: General: appearance normal, both eyes and all related structures Alignment and Position: alignment normal and position normal Periorbital: periorbital findings normal Eyelids: eyelids normal Pupils: Equal, round and reactive pupils present EOM: EOMs intact bilaterally Neck: Neck: normal visual inspection, full ROM and supple Chest: Chest palpation & inspection: normal inspection of the chest Resp: Effort & Inspection: normal respiratory effort and able to speak in complete sentences Auscultation: clear to auscultation bilaterally Cardio: Rate: regular rate Rhythm: regular rhythm Heart sounds: S1 normal heart sound present and S2 normal heart sound present GI: Inspection: normal to inspection Skin: General skin exam: normal color and no rashes or lesions noted Neuro: General: patient oriented x3 and moves all extremities Cranial nerves: Yes Equal, round and reactive pupils present Speech: normal speech Gait exam (Neuro): Normal gait present Extrem: General: normal to inspection, full ROM and no edema Psych: Appearance: grossly normal and well kempt Mental Status: mental status grossly normal Speech and movement: Normal speech and movement present Affect: normal affect Attitude: cooperative Thought process: Normal thought process present Course Course Emergency Course: Patient is aware of diagnosis, understands and agrees to treatment plan. Anticipatory guidance given. Patient agrees to follow-up as directed and is aware of reasons to seek care at the emergency department. Portions of this record may have been created with voice recognition software Level of Care: Express Care Visit Vital Signs Vital signs: Vital Signs Temperature 37.0 C 06/04/25 15:39 Pulse Rate 91 06/04/25 15:39 Respiratory Rate 18 06/04/25 15:39 Blood Pressure 123/71 06/04/25 15:39 Pulse Oximetry 99 06/04/25 15:39 Oxygen Delivery Room Air 06/04/25 15:39 Temperature 37.0 C 06/04/25 15:39 Pulse Rate 91 06/04/25 15:39 Respiratory Rate 18 06/04/25 15:39 Blood Pressure 123/71 06/04/25 15:39 Pulse Oximetry 99 06/04/25 15:39 Oxygen Delivery Room Air 06/04/25 15:39 Reviewed MDM - Nausea/Vomiting/Diarrhea MDM Narrative Medical decision making narrative: Pt well hydrated appearing, in no respiratory distress, hemodynamically stable. Recommend supportive care. The patient is stable at time of discharge the clinical impression was discussed and the patient was given the opportunity to ask questions, which were addressed as completely as possible given the information available at present. Anticipatory guidance and return to care precautions were discussed and the importance of primary care follow-up was stressed and encouraged. The patient voiced understanding of the plan, indications to return, and the need for follow-up. Exam findings show no acute concerns or changes Patient is appropriate for outpatient treatment and follow-up. Differential Diagnosis Differential diagnosis: Likely food poisoning, gastroenteritis, clostridium difficile infection, drug-induced nausea and vomiting, dehydration and other (IBS) Medical Records Attestation: I reviewed the patient's medical records. Discharge Plan Discharge Clinical Impression: Irritable bowel syndrome, Nausea Patient Disposition: Home Condition: Stable Instructions: Irritable Bowel Syndrome (ED) Additional Instructions: Stay hydrated. Take small sips of fluid containing electrolytes frequently(Body [place], Gatorade, Powerade, liquid IV). Eat small meals that her very bland including bananas, applesauce, rice, toast, boiled or grilled chicken, soup. Do not eat anything fried, spicy or overly acidic. You should go to the hospital if you experience return of persistent nausea and vomiting that does not resolve and does not allow you to tolerate any food or fluids, persistent fevers for greater than 2-3 more days, increasing abdominal pain that persists despite medications, persistent diarrhea, dizziness, syncope (fainting), or for any other concerns. Patient Language: [place] Prescriptions: New ondansetron 4 mg tablet,disintegrating 4 mg PO Q6-8H PRN (Reason: nausea and vomiting) Qty: 30 0RF No Action indapamide 2.5 mg tablet 2.5 mg PO DAILY allopurinol 100 mg tablet 100 mg PO DAILY rosuvastatin 20 mg tablet 20 mg PO HS dapagliflozin propanediol [Farxiga] 10 mg tablet 10 mg PO DAILY Trulicity 3 mg/0.5 mL pen injector 3 mg SUBCUT WEEKLY Patient Comments: Sundays albuterol sulfate 90 mcg/actuation HFA aerosol inhaler 2 puff inhalation Q4-6H PRN (Reason: shortness of breath or wheezing) 30 Days Qty: 8.5 0RF ondansetron 4 mg tablet,disintegrating 4 mg PO Q6-8H PRN (Reason: nausea and vomiting) Qty: 15 0RF amitriptyline 50 mg tablet 50 mg PO QHS Qty: 90 3RF omeprazole 40 mg capsule,delayed release(DR/EC) See Rx Instructions .ROUTE .COMPLEX Qty: 90 3RF Dose Instruction: TAKE 1 CAPSULE DAILY BEFORE A MEAL Rx Instructions: TAKE 1 CAPSULE DAILY BEFORE A MEAL dicyclomine 10 mg capsule See Rx Instructions .ROUTE .COMPLEX Qty: 360 3RF Dose Instruction: TAKE 1 TO 2 CAPSULES EVERY 6 HOURS NEEDED FOR ABDOMINAL PAIN Rx Instructions: TAKE 1 TO 2 CAPSULES EVERY 6 HOURS NEEDED FOR ABDOMINAL PAIN (DME) FreeStyle [place] 2 [place] Misc See Rx Instructions .Route Qty: 1 0RF Rx Instructions: use As directed (DME) FreeStyle [place] 2 Sensor Kit See Rx Instructions .Route Qty: 1 0RF Rx Instructions: use As directed losartan 50 mg tablet 50 mg PO DAILY (DME) blood-glucose meter Kit See Rx Instructions .ROUTE .MEDSUPPLY Qty: 1 0RF Rx Instructions: Use to check blood sugar once daily fasting Follow-up/Referrals: Blaze Paulino MD [Primary Care Provider, Family Practice] - 3 Days Stand Alone Forms: Work/School Release IP
[2025-06-04 15:39] VITALS: BP 123/71; PULSE 91; RESP 18; TEMP 37; O2SAT 99
== END 2025-06-04 16:28 | disposition home or self-care (01) ==
PROVIDERS: Emergency Provider Nurse Practitioner Family; PCP Emergency Medicine
DX: K58.9 Irritable bowel syndrome, unspecified (principal); R11.0 Nausea; F17.210 Nicotine dependence, cigarettes, uncomplicated; J44.9 Chronic obstructive pulmonary disease, unspecified; N40.0 Benign prostatic hyperplasia without lower urinary tract symptoms; E11.9 Type 2 diabetes mellitus without complications; Z79.85 Long-term (current) use of injectable non-insulin antidiabetic drugs; K21.9 Gastro-esophageal reflux disease without esophagitis; E78.5 Hyperlipidemia, unspecified; E66.9 Obesity, unspecified; Z68.26 Body mass index [BMI] 26.0-26.9, adult; M10.9 Gout, unspecified; M47.812 Spondylosis without myelopathy or radiculopathy, cervical region
CPT/HCPCS: 99213; G0463

== ENCOUNTER 2025-06-19 14:36 | Emergency (ER) | payer BC, SELFPAY ==
[2025-06-19 14:42] VITALS: BP 133/79; PULSE 96; RESP 18; TEMP 36.7; O2SAT 100
--- NOTE | 2025-06-19 14:44 | ED.ABDPAIN ---
HPI - Abdominal Pain General Chief Complaint: Abdominal Pain Stated Complaint: pain in abdomen Source: patient Mode of arrival: ambulatory Limitations: no limitations History of Present Illness HPI narrative: Pt is a 54 y/o male presenting with c/o abdominal pain. Pt reports nausea, diarrhea, abd pain x 4 days. States sx have waxed and waned since onset, pain has increased over the last 24 hours. Has been taking bentyl without improvement. NO blood in stool. NO additional complaints. Related Data Home Medications ?Medication ?Instructions ?Recorded ?Confirmed ?Last Taken ?Type allopurinol 100 mg tablet 100 mg PO DAILY 11/23/24 04/11/25 Unknown History dapagliflozin propanediol 10 mg 10 mg PO DAILY 11/23/24 04/11/25 Unknown History tablet (Farxiga) dulaglutide 3 mg/0.5 mL 3 mg subcut WEEKLY 11/23/24 04/11/25 Unknown History subcutaneous pen injector (Trulicity) indapamide 2.5 mg tablet 2.5 mg PO DAILY 11/23/24 04/11/25 Unknown History rosuvastatin 20 mg tablet 20 mg PO HS 11/23/24 04/11/25 Unknown History losartan 50 mg tablet 50 mg PO DAILY 02/01/25 04/11/25 Unknown History amitriptyline 25 mg tablet mg 06/19/25 Unknown History Allergies Allergy/AdvReac Type Severity Reaction Status Date / Time No Known Allergies Allergy Verified 06/19/25 14:45 Review of Systems Review of Systems: CONSTITUTIONAL: Denies body aches, fever, chills, or sweats. EYES: Denies visual changes, redness, or discharge. ENT: Denies rhinorrhea, congestion, sore throat, or otalgia. CARDIOVASCULAR: Denies chest pain, palpitations, or edema. RESPIRATORY: Denies cough or dyspnea. GASTROINTESTINAL: reports abdominal pain, nausea, diarrhea, denies vomiting GENITOURINARY: Denies dysuria or hematuria. SKIN: Denies rash, itching, or wounds. MUSCULOSKELETAL: Denies back pain, joint pain, or myalgia. NEUROLOGIC: Denies headache, numbness, tingling, or weakness. PSYCH: Denies depression or anxiety. All systems reviewed & are unremarkable except as noted in HPI and below PMFSH Past Medical History Medical History COPD (chronic obstructive pulmonary disease) IBS (irritable bowel syndrome) GERD (gastroesophageal reflux disease) Hx of adenomatous colonic polyps Tobacco dependence Obesity (BMI 30-39.9) Hemorrhoids Irritable bowel syndrome BPH (benign prostatic hyperplasia) Dyslipidemia Type 2 diabetes mellitus without complications Hyponatremia Polyarthralgia Benign hypertension (~03/2019) Anxiety GERD (gastroesophageal reflux disease) Unspecified osteoarthritis, unspecified site Hypokalemia Hypogonadism Diverticulitis of colon with perforation Degenerative disc disease Cervical spondylosis Gout History of diverticular abscess (~2004) Surgical History Surgical History H/O inguinal hernia repair 02/05/25 1. Robotic assisted laparoscopic right inguinal hernia repair with mesh 2. Robotic assisted laparoscopic extensive adhesiolysis Dr. Swain S/P colostomy takedown 2006 History of hemorrhoidectomy 01/2021 History of partial colectomy 2004 - secondary to perforated diverticulitis History of incisional hernia repair 2006 Family History Family History Father Diabetes mellitus Social History Social History Smoking packs per day: 1 Smoking cigarettes per day: 20.0 Years smoked: 40 Smoking pack-years: 40.00 Smoking status: Current every day smoker Tobacco type: cigarettes Second hand tobacco smoke exposure: Yes Additional smoking assessment comments: consume 1 pack of cigarettes daily Alcohol intake: current Drinks per week: 24 Alcohol use details: beer Substance use: current Substance use type: marijuana Do You Feel Safe in your Home?: Yes Lack of Transportation: No Lack of Food: Never True Current Housing: I Have Housing Concerned About Future Housing: No Difficulty Paying Gas/Electric Bills: No Difficulty Paying for Meds: No Currently Unemployed: No Education: High School Diploma/GED Difficulty w/ Childcare or Family Care: No Living arrangements: with family Gender identity (if verbalized by the patient): Male Spiritual care concerns: No Exam Narrative: GENERAL: Well-appearing, well-nourished, and in no acute distress. HEAD: Normocephalic, atraumatic. EYES: EOMI. No redness or drainage. Conjunctivae normal. ENT: Mucous membranes pink and moist. NECK: Normal AROM. Supple. CHEST: No respiratory distress. Clear to auscultation. HEART: Regular rate and rhythm. No murmur appreciated. Normal peripheral pulses. ABDOMEN: Soft, nondistended, normal active bowel sounds. exquisitely tender to the right lower quadrant, no rebound. MUSCULOSKELETAL: No bony tenderness. EXTREMITIES: Normal range of motion. No edema. SKIN: Warm, dry, no rash. Capillary refill normal. Normal skin turgor. NEURO: No focal deficits. Alert and oriented x3. Gait steady. PSYCH: Normal affect. No signs of depression or anxiety. Course Course Level of Care: Express Care Visit Vital Signs Vital signs: Vital Signs Temperature 98.1 F 06/19/25 14:42 Pulse Rate 96 06/19/25 14:42 Respiratory Rate 18 06/19/25 14:42 Blood Pressure 133/79 06/19/25 14:42 Pulse Oximetry 100 06/19/25 14:42 Oxygen Delivery Room Air 06/19/25 14:42 Temperature 98.1 F 06/19/25 14:42 Pulse Rate 96 06/19/25 14:42 Respiratory Rate 18 06/19/25 14:42 Blood Pressure 133/79 06/19/25 14:42 Pulse Oximetry 100 06/19/25 14:42 Oxygen Delivery Room Air 06/19/25 14:42 Transfer Transfered to: [facility] Transportation: Other (POV) Transfer rationale: Access to higher level of care, further diagnostic work up Accepting physician: Sidney MDM - Abdominal Pain MDM Narrative Medical decision making narrative: Given the patient's reported sx, PMH/PSH, physical exam findings, I recommended he be transferred to ER of his choice for further diagnostic work up. Pt agreed and requested to be transferred to [facility]. Pt is aware that he should go straight to ER and remain NPO until instructed otherwise. Verbal report given to Shan Oro NP. Medical Records Attestation: I reviewed the patient's medical records. Discharge Plan Discharge Clinical Impression: Abdominal pain, acute, right lower quadrant, Nausea, Diarrhea, Benign hypertension Patient Disposition: Acute Care Hospital Condition: Stable Patient Language: Maori Prescriptions: No Action indapamide 2.5 mg tablet 2.5 mg PO DAILY allopurinol 100 mg tablet 100 mg PO DAILY rosuvastatin 20 mg tablet 20 mg PO HS dapagliflozin propanediol [Farxiga] 10 mg tablet 10 mg PO DAILY Trulicity 3 mg/0.5 mL pen injector 3 mg SUBCUT WEEKLY Patient Comments: Sundays albuterol sulfate 90 mcg/actuation HFA aerosol inhaler 2 puff inhalation Q4-6H PRN (Reason: shortness of breath or wheezing) 30 Days Qty: 8.5 0RF amitriptyline 25 mg tablet omeprazole 40 mg capsule,delayed release(DR/EC) See Rx Instructions .ROUTE .COMPLEX Qty: 90 3RF Dose Instruction: TAKE 1 CAPSULE DAILY BEFORE A MEAL Rx Instructions: TAKE 1 CAPSULE DAILY BEFORE A MEAL dicyclomine 10 mg capsule See Rx Instructions .ROUTE .COMPLEX Qty: 360 3RF Dose Instruction: TAKE 1 TO 2 CAPSULES EVERY 6 HOURS NEEDED FOR ABDOMINAL PAIN Rx Instructions: TAKE 1 TO 2 CAPSULES EVERY 6 HOURS NEEDED FOR ABDOMINAL PAIN (DME) FreeStyle [place] 2 [employer] Misc See Rx Instructions .Route Qty: 1 0RF Rx Instructions: use As directed (DME) FreeStyle [place] 2 Sensor Kit See Rx Instructions .Route Qty: 1 0RF Rx Instructions: use As directed losartan 50 mg tablet 50 mg PO DAILY (DME) blood-glucose meter Kit See Rx Instructions .ROUTE .MEDSUPPLY Qty: 1 0RF Rx Instructions: Use to check blood sugar once daily fasting Follow-up/Referrals: Blaze Paulino MD [Primary Care Provider, Family Practice] Time of Disposition: 15:00
== END 2025-06-19 15:08 | disposition short-term general hospital (02) ==
PROVIDERS: Emergency Provider Registered Nurse; PCP Emergency Medicine
DX: R10.31 Right lower quadrant pain (principal); R11.0 Nausea; R19.7 Diarrhea, unspecified; I10 Essential (primary) hypertension; F17.210 Nicotine dependence, cigarettes, uncomplicated; F12.90 Cannabis use, unspecified, uncomplicated; N40.0 Benign prostatic hyperplasia without lower urinary tract symptoms; E11.9 Type 2 diabetes mellitus without complications; Z79.85 Long-term (current) use of injectable non-insulin antidiabetic drugs; J44.9 Chronic obstructive pulmonary disease, unspecified; K21.9 Gastro-esophageal reflux disease without esophagitis; E66.9 Obesity, unspecified; Z68.25 Body mass index [BMI] 25.0-25.9, adult; E78.5 Hyperlipidemia, unspecified; M10.9 Gout, unspecified; M19.90 Unspecified osteoarthritis, unspecified site
CPT/HCPCS: 99212; G0463

== ENCOUNTER 2025-06-19 15:21 | Emergency (ER) | payer BC, SELFPAY ==
--- NOTE | ~2025-06-19 | CT_ITS ---
CT abdomen pelvis w con INDICATION:RLQ abd pain; Diarrhea; hx IBD, hernia repair; SBO . COMPARISON: None. TECHNIQUE: Axial images of the abdomen and pelvis were obtained following infusion of 100 mL Isovue 300. Dose optimization technique was utilized. FINDINGS: The lung bases are clear. The liver parenchyma is unremarkable. No intrahepatic mass or ductal dilatation is evident. The gallbladder is unremarkable. The pancreas and spleen are normal in appearance. The adrenal glands are symmetric in size. The kidneys demonstrate symmetric uptake and excretion of contrast. Left renal cyst measures 1.3 cm. There is a 3 mm nonobstructive right intrarenal stone. There is no solid mass. There is no hydronephrosis. The stomach and bowel loops are unremarkable. The appendix is not visualized however no secondary signs of appendicitis are identified. The bladder and rectum are normal. No free intraperitoneal fluid or air is evident. There is no significant retroperitoneal lymphadenopathy. The aorta, visceral vessels and renal arteries demonstrate normal caliber and patency. 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 IMPRESSION: No acute abnormality is noted in the abdomen and pelvis. All CT scans at this facility are performed using low dose modulation techniques as appropriate to perform exam including the following: automated exposure control; use of iterative reconstruction technique; adjustment of the mA and/or kV according to patient size (this includes techniques or standardized protocols for targeted exams where dose is matched to indication/reason for exam). Reviewed, dictated and finalized at location S. IMPRESSION: No acute abnormality is noted in the abdomen and pelvis. All CT scans at this facility are performed using low dose modulation techniqu es as appropriate to perform exam including the following: automated exposure c ontrol; use of iterative reconstruction technique; adjustment of the mA and/or kV according to patient size (this includes techniques or standardized protocol s for targeted exams where dose is matched to indication/reason for exam).
[2025-06-19 15:24] VITALS: BP 151/105; PULSE 118; RESP 20; TEMP 36.8; O2SAT 97
[2025-06-19 16:21] LABS: Hematocrit 47.3 % (42.0-52.0); Hemoglobin 16.7 g/dL (14.0-18.0); Immature Granulocyte Percent A 1.0 % (0-0.5); Lymphocytes Absolute Auto 1.73 K/mm3 (0.9-3.2); Mean Corpuscular HGB Conc 35.3 g/dl (32-36); Mean Corpuscular Hemoglobin 32.9 pg (26-34); Mean Corpuscular Volume 93.3 fl (80-100); Nucleated Red Blood Cells Absolute Auto 0.000 K/mm3 (0.0-0.012); Nucleated Red Blood Cells Perc 0.0 % (0.0-0.2); Platelet Count Result 327 k/mm3 (150-375); Red Blood Count 5.07 M/mm3 (4.6-6.20); White Blood Count 13.9 K/mm3 (4.5-10.0)
[2025-06-19 16:28] LABS: Alanine Aminotransferase 27 U/L (6-50); Albumin Level 4.3 g/dL (3.5-5.1); Alkaline Phosphatase 86 U/L (38-126); Anion Gap 8 mmol/L (4-12); Aspartate Amino Transferase 42 U/L (17-59); Bilirubin,Total 0.5 mg/dL (0.2-1.3); Blood Urea Nitrogen 6 mg/dL (9-20); Calcium 8.8 mg/dL (8.4-10.2); Carbon Dioxide 29 mmol/L (22-30); Chloride 97 mmol/L (98-107); Estimated CRCL calculation 100 ml/min; Estimated Glomerular Filt Rate > 60; Glucose 96 mg/dL (65-110); Lipase 74 U/L (23-300); Potassium 3.2 mmol/L (3.4-5.0); Sodium 134 mmol/L (137-145); Total Protein 7.1 g/dL (6.3-8.2)
[2025-06-19 16:30] LABS: Add Urine Microscopic? YES; Appearance Urine Clear (Clear); Glucose Urine UA 3+ mg/dL (Negative); Leukocyte Esterase Ur Negative LEU/UL (Negative); Nitrate Urine Negative (Negative); Non Pathogenic Casts 0-2; Specific Grav Ur 1.017 (1.001-1.035)
--- NOTE | 2025-06-19 17:06 | ED.ABDPAIN ---
HPI - Abdominal Pain General Chief Complaint: Abdominal Pain Stated Complaint: IBS symptoms Time Seen by Provider: 06/19/25 16:30 Source: patient Mode of arrival: ambulatory Limitations: no limitations History of Present Illness HPI narrative: Patient presents from urgent care where was reported that he had right lower quadrant abdominal pain. Patient describes umbilical abdominal pain and at this time. He has had nausea vomiting and diarrhea starting last week. He reports that his nausea vomiting are essentially constant. Was given Zofran by urgent care including tablets he has with him. He has a history of hernia repair with complication that the bowel become looped into the mesh. Repair for this was performed [address] Swain and he reports that ever since he has had strange bowel habits and weird sensation when he defecates. He notes that he has a history of IBS and had been having constipation but then this seemed to transition to diarrhea although more recently stools have become more regular. He notes that he has some discomfort during defecation and thinks it might be related to his prostate. History of bowel obstruction. He has a GI appointment on Tuesday with Dr. Joseph Tai / LOREE Blanton. He is occasionally passing flatus. Has been taking Tylenol and ibuprofen t.i.d. and recently learned appropriate dosing of Tylenol as he notes that he had been taking more than the recommended amount prior to that. Denies any fevers although he will become diaphoretic with dry heaving. His last colonoscopy was a few years ago and had felt good after that and thought that a lot of his GI issues were resolved as there was removal of a polyp and hemorrhoidectomy. Not on anticoagulation other aspirin. Last oral intake was last night. Other abdominal surgeries include appendectomy. He continues to have an appetite. Right now not having any pain or nausea. Reports not having a post op follow up with Dr Swain since the February surgery. He is pending a left knee replacement at some point. Related Data Home Medications ?Medication ?Instructions ?Recorded ?Confirmed ?Last Taken ?Type allopurinol 100 mg tablet 100 mg PO DAILY 11/23/24 04/11/25 Unknown History dapagliflozin propanediol 10 mg 10 mg PO DAILY 11/23/24 04/11/25 Unknown History tablet (Farxiga) dulaglutide 3 mg/0.5 mL 3 mg subcut WEEKLY 11/23/24 04/11/25 Unknown History subcutaneous pen injector (Trulicity) indapamide 2.5 mg tablet 2.5 mg PO DAILY 11/23/24 04/11/25 Unknown History rosuvastatin 20 mg tablet 20 mg PO HS 11/23/24 04/11/25 Unknown History losartan 50 mg tablet 50 mg PO DAILY 02/01/25 04/11/25 Unknown History amitriptyline 25 mg tablet mg 06/19/25 Unknown History Allergies Allergy/AdvReac Type Severity Reaction Status Date / Time No Known Allergies Allergy Verified 06/19/25 14:45 [facility] Past Medical History Medical History COPD (chronic obstructive pulmonary disease) IBS (irritable bowel syndrome) GERD (gastroesophageal reflux disease) Hx of adenomatous colonic polyps Tobacco dependence Obesity (BMI 30-39.9) Hemorrhoids Irritable bowel syndrome BPH (benign prostatic hyperplasia) Dyslipidemia Type 2 diabetes mellitus without complications Hyponatremia Polyarthralgia Benign hypertension (~03/2019) Anxiety GERD (gastroesophageal reflux disease) Unspecified osteoarthritis, unspecified site Hypokalemia Hypogonadism Diverticulitis of colon with perforation Degenerative disc disease Cervical spondylosis Gout History of diverticular abscess (~2004) Surgical History Surgical History H/O inguinal hernia repair 02/05/25 1. Robotic assisted laparoscopic right inguinal hernia repair with mesh 2. Robotic assisted laparoscopic extensive adhesiolysis Dr. Swain S/P colostomy takedown 2006 History of hemorrhoidectomy 01/2021 History of partial colectomy 2004 - secondary to perforated diverticulitis History of incisional hernia repair 2006 Family History Family History Father Diabetes mellitus Social History Social History Smoking packs per day: 1 Smoking cigarettes per day: 20.0 Years smoked: 40 Smoking pack-years: 40.00 Smoking status: Current every day smoker Tobacco type: cigarettes Second hand tobacco smoke exposure: Yes Additional smoking assessment comments: consume 1 pack of cigarettes daily Alcohol intake: current Drinks per week: 24 Alcohol use details: beer Substance use: current Substance use type: marijuana Do You Feel Safe in your Home?: Yes Lack of Transportation: No Lack of Food: Never True Current Housing: I Have Housing Concerned About Future Housing: No Difficulty Paying Gas/Electric Bills: No Difficulty Paying for Meds: No Currently Unemployed: No Education: High School Diploma/GED Difficulty w/ Childcare or Family Care: No Living arrangements: with family Gender identity (if verbalized by the patient): Male Spiritual care concerns: No Exam Narrative: GENERAL: Well-appearing, well-nourished, and in no acute distress. HEAD: Normocephalic, atraumatic. EYES: Non injected, non icteric ENT: Nares clear, no rhinorrhea or epistaxis. Gross auditory acuity intact. NECK: Supple. No meningismus. CHEST: Speaking in full sentences. No respiratory distress. HEART: Tachycardic rate and rhythm. . ABDOMEN: Soft, nondistended. No significant TTP although there is a palpable mass/mild firmness to palpation superior to the umbilicus. Large well healed midline scar. EXTREMITIES: No lower extremity edema. Left knee in hinged knee brace. SKIN: Warm, dry, no rash. NEURO: No focal deficits. Alert and oriented. Answering questions. Following commands. Normal speech without aphasia or dysarthria. PSYCH: Normal mood and affect. Course Vital Signs Vital signs: Vital Signs Temperature 98.3 F 06/19/25 15:24 Pulse Rate 118 H 06/19/25 15:24 Respiratory Rate 20 06/19/25 15:24 Blood Pressure 151/105 H 06/19/25 15:24 Pulse Oximetry 97 06/19/25 15:24 Oxygen Delivery Room Air 06/19/25 15:24 Temperature 98.3 F 06/19/25 15:24 Pulse Rate 93 06/19/25 18:21 Respiratory Rate 14 06/19/25 18:21 Blood Pressure 132/84 06/19/25 18:21 Pulse Oximetry 98 06/19/25 18:21 Oxygen Delivery Room Air 06/19/25 15:24 MDM - Abdominal Pain MDM Narrative Medical decision making narrative: Patient presents from urgent care where it was reported that he was having right lower quadrant abdominal pain although at the time of the exam he reports that it is more generalized although particularly supraumbilical. Multiple abdominal surgeries including report of bowel obstruction and a complication in which there was bowel involved in hernia mesh for which surgical intervention was performed 02/05/[address] Swain. He has been experiencing nausea vomiting and diarrhea since last week although he states that he has a history of IBS and he had been having constipation followed by diarrhea although his stools have been more regular recently. In the emergency department he is afebrile with vital signs notable for tachycardia and hypertension. Patient has leukocytosis. Very mild hyponatremia and hypokalemia. IV fluids ordered as is electrolyte repletion. He has glucosuria. CT scan as below. Bentyl ordered. RN reports that patient would like to go. Vital signs have normalized. Patient is observed ambulating out of the department and does not appear to be in discomfort, ambulating with steady gait. He was prescribed additional Bentyl. He had been prescribed Zofran at urgent care. He has upcoming appointment with Gastroenterology on Tuesday and I encouraged him in his discharge instructions to keep this appointment. I also encouraged follow-up with general surgeon. Differential Diagnosis Differential diagnosis: Likely abdominal pain, constipation, diverticulitis, gastroenteritis, pancreatitis, small bowel obstruction and other (IBS; surgical complication) Lab Data Attestation: I reviewed the patient's lab results. 06/19/25 16:13 06/19/25 16:13 Labs: Lab Results 06/19/25 06/19/25 06/19/25 Range/Units 16:13 16:17 17:31 WBC 13.9 H (4.5-10.0) K/mm3 RBC 5.07 (4.6-6.20) M/mm3 Hgb 16.7 (14.0-18.0) g/dL Hct 47.3 (42.0-52.0) % MCV 93.3 (80-100) fl MCH 32.9 (26-34) pg MCHC 35.3 (32-36) g/dl RDW 13.7 (11.5-14.5) % Plt Count 327 (150-375) k/mm3 MPV 9.4 (7.4-10.4) fl Immature Gran % (Auto) 1.0 H (0-0.5) % Neut % (Auto) 77.9 H (45.5-73.1) % Lymph % (Auto) 12.5 L (18.3-44.2) % [place] % (Auto) 7.3 (2.6-8.5) % Eos % (Auto) 0.8 (0-4.4) % Baso % (Auto) 0.5 (0.2-1.2) % Lymph # (Auto) 1.73 (0.9-3.2) K/mm3 [place] # (Auto) 1.0 H (0.1-0.6) K/mm3 Eos # (Auto) 0.1 (0-0.3) K/mm3 Baso # (Auto) 0.1 (0.0-0.1) K/mm3 Abs Immat Gran (auto) 0.14 H (0.00-0.031) K/mm3 Absolute Neuts (auto) 10.8 H (1.3-6.7) K/mm3 Absolute Nucleated RBC 0.000 (0.0-0.012) K/mm3 Nucleated RBC % 0.0 (0.0-0.2) % Sodium 134 L (137-145) mmol/L Potassium 3.2 L (3.4-5.0) mmol/L Chloride 97 L (98-107) mmol/L Carbon Dioxide 29 (22-30) mmol/L Anion Gap 8 (4-12) mmol/L BUN 6 L (9-20) mg/dL Creatinine 0.75 (0.7-1.3) mg/dL Estim Creat Clear Calc 100 ml/min Estimated GFR > 60 (59 - ) Glucose 96 (65-110) mg/dL Lactic Acid 0.6 L (0.7-2.0) mmol/L Calcium 8.8 (8.4-10.2) mg/dL Magnesium 1.7 (1.6-2.3) mg/dL Total Bilirubin 0.5 (0.2-1.3) mg/dL AST 42 (17-59) U/L ALT 27 (6-50) U/L Alkaline Phosphatase 86 (38-126) U/L Total Protein 7.1 (6.3-8.2) g/dL Albumin 4.3 (3.5-5.1) g/dL Lipase 74 (23-300) U/L Urine Color Yellow (Yellow) Urine Appearance Clear (Clear) Urine pH 7.5 (5.0-9.0) Ur Specific [place] 1.017 (1.001-1.035) Urine Protein Trace (Negative) mg/dL Urine Glucose (UA) 3+ H (Negative) mg/dL Urine Ketones Negative (Negative) mg/dL Ur Blood (Man) Negative (Negative) Urine Nitrate Negative (Negative) Urine Bilirubin Negative (Negative) Urine Urobilinogen 1.0 (<2.0) mg/dL Leukocyte Esterase Rfl Negative (Negative) TEJAL/UL Urine RBC 0-2 (0-2) /hpf Urine WBC 0-5 (0-3) /hpf Ur Squamous Epith Cells None seen (Few) /hpf Urine Bacteria None seen /hpf Urine Casts 0-2 Imaging Data Radiologist's impression: ITS Impressions Abdomen/Pelvis CT 06/19/25 17:59 IMPRESSION: No acute abnormality is noted in the abdomen and pelvis. All CT scans at this facility are performed using low dose modulation techniques as appropriate to perform exam including the following: automated exposure control; use of iterative reconstruction technique; adjustment of the mA and/or kV according to patient size (this includes techniques or standardized protocols for targeted exams where dose is matched to indication/reason for exam). Discharge Plan Discharge Clinical Impression: Leukocytosis, Hypokalemia, Nausea & vomiting, Change in stool habits Abdominal pain Qualifiers: Abdominal location: generalized Qualified Code(s): R10.84 - Generalized abdominal pain Patient Disposition: Home Condition: Stable Instructions: Antibiotic Form, Hypokalemia (ED), Acute Nausea and Vomiting (ED), Abdominal Pain (ED) Additional Instructions: Keep your upcoming appointment with gastroenterology. Return to the ED with any new/worsening symptoms. In particular, if the pain worsens, you develop fever, persistent and uncontrolled vomiting, or your unable to pass gas. You can continue to use the oral disintegrating tablets of ondansetron/Zofran that you have for nausea and vomiting. Some people find that the Bentyl/dicyclomine can help with the abdominal pain is cramping because it works on the smooth muscle of the GI tract. But also recommend you follow-up with your surgeon from your hernia repair. In the interim continue to take all your medications as prescribed. Patient Language: [place] Prescriptions: New dicyclomine 20 mg tablet 20 mg PO BID Qty: 20 0RF No Action indapamide 2.5 mg tablet 2.5 mg PO DAILY allopurinol 100 mg tablet 100 mg PO DAILY rosuvastatin 20 mg tablet 20 mg PO HS dapagliflozin propanediol [Farxiga] 10 mg tablet 10 mg PO DAILY Trulicity 3 mg/0.5 mL pen injector 3 mg SUBCUT WEEKLY Patient Comments: Sundays albuterol sulfate 90 mcg/actuation HFA aerosol inhaler 2 puff inhalation Q4-6H PRN (Reason: shortness of breath or wheezing) 30 Days Qty: 8.5 0RF amitriptyline 25 mg tablet omeprazole 40 mg capsule,delayed release(DR/EC) See Rx Instructions .ROUTE .COMPLEX Qty: 90 3RF Dose Instruction: TAKE 1 CAPSULE DAILY BEFORE A MEAL Rx Instructions: TAKE 1 CAPSULE DAILY BEFORE A MEAL dicyclomine 10 mg capsule See Rx Instructions .ROUTE .COMPLEX Qty: 360 3RF Dose Instruction: TAKE 1 TO 2 CAPSULES EVERY 6 HOURS NEEDED FOR ABDOMINAL PAIN Rx Instructions: TAKE 1 TO 2 CAPSULES EVERY 6 HOURS NEEDED FOR ABDOMINAL PAIN (DME) FreeStyle [place] 2 [place] Misc See Rx Instructions .Route Qty: 1 0RF Rx Instructions: use As directed (DME) FreeStyle [place] 2 Sensor Kit See Rx Instructions .Route Qty: 1 0RF Rx Instructions: use As directed losartan 50 mg tablet 50 mg PO DAILY (DME) blood-glucose meter Kit See Rx Instructions .ROUTE .MEDSUPPLY Qty: 1 0RF Rx Instructions: Use to check blood sugar once daily fasting Follow-up/Referrals: Elvira Blanton APRN [Advanced Practice Nurse, Gastroenterology] Danny Krause MD [Physician, Gastroenterology] Blaze Paulino MD [Primary Care Provider, Family Practice] Drew Swain DO [Physician, General Surgery] Stand Alone Forms: Work/School Release IP Time of Disposition: 18:42
--- OUTSIDE RECORDS SUMMARY | 2025-06-19 17:25 | XMS_ITS | Clinical Summary ---
Author Organization [facility] Address [address] [place] [id number] Phone Care Team Providers Care Transformer Assembler Name Role Phone Blaze Paulino MD Primary Care Provider [phone] Allergies No known active allergies Medications indapamide [...] Encounters Date Type Department Care Team Description 04/10/2025 Telephone [facility] [address] [facility], [address] [place] [address] Sarah Corey NP from Last 3 Months [...] Comments Blood Pressure 134/82 10/27/2023 9:04 AM HEEL REDUCER Pulse 102 10/27/2023 9:04 AM HEEL REDUCER Temperature - - Respiratory Rate - - Oxygen Saturation 94% 04/28/2023 8:50 AM CDT Inhaled Oxygen Concentration - - Weight 93.9 kg (207 lb) 10/27/2023 9:04 AM HEEL REDUCER Height 172.7 cm (5' 8) 10/27/2023 9:04 AM HEEL REDUCER Body Mass Index 31.47 10/27/2023 9:04 AM HEEL REDUCER Plan of Treatment Health Maintenance Due Date Last Done Comments Diabetic Foot Exam 12/10/1979 Ophthalmology Exam 12/10/1979 Pneumococcal PPSV23 Highest Risk Adult (1 of 3 - PCV13 ) 1988 Influenza Vaccine (#1) 2025 Insurance Care Teams Transformer Assembler Relationship Specialty Start Date End Date Blaze Paulino MD PCP - General 11/18/21
--- OUTSIDE RECORDS SUMMARY | 2025-06-19 17:25 | XMS_ITS | Patient Health Record ---
Author Organization [facility] [place] ([address]) Address [address] [place] [address] Care Team Providers Care Intermediate Designer Name Role Phone Blaze Paulino Primary Care Provider Aaliyah Mo Unavailable [phone] Reason For Referral No Information Problems Problem Type SNOMED Code ICD Code Onset Dates Problem Status W/U Status Risk Notes Problem Degeneration of cervical intervertebral disc (96659290) Other cervical disc degeneration, unspecified cervical region (M50.30) Active confirmed Problem Cervical radiculopathy (27627612) Radiculopathy, cervical region (M54.12) Active confirmed Problem Cervicalgia (17473613) Cervicalgia (M54.2) Active confirmed Problem Pain in right arm (174375831) Pain in right arm (M79.601) Active confirmed Problem Pain in left arm (834803550) Pain in left arm (M79.602) Active confirmed Plan Of Treatment No Information Insurance Providers Payer Name Payer Address Payer Phone Subscriber Number Group Number Insured Name Patient Relationship to Insured Coverage Start Date Coverage End Date [facility] [address] [place] [address] [id number] Alessio Iyer Self - patient is the insured 3 Medical (General) History Medical History History ICD Code DM2 COPD Cervical DDD
--- OUTSIDE RECORDS SUMMARY | 2025-06-19 17:25 | XMS_ITS | Data Portability ---
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 Discussed gel injection and medial community relations director brace as other tx options. All questions were answered. Patient verbalized understanding of treatment plan [email or web address] Not available 12/12/2024 12:47:36 02/13/2025 02/13/2025 HPI: 54 year old male presents today for follow-up of left knee pain secondary to osteoarthritis. He was last evaluated on December 12, the treatment plan was injection and HEP. Pain and swelling are intermittent, mainly located on the medial aspect of the knee. Pain is aggravated with activities. Takes meloxicam for pain, with mild relief. He would like to discuss gel injection today. He is a current smoker and diabetic. Physical Exam: General: Normal appearance. No acute distress. Inspection: No evidence of swelling, erythema, bruising or deformity. Palpation: Nontender to palpation ROM: 0-130 Motor: 5/5 strength. Sensation: Sensation intact. Assessment & Plan: We will continue to treat his osteoarthritis with conservative management. We will work on get gel injection approved through insurance. Rx for Naproxen 500mg BID. If he wants to switch back to Meloxicam he can do that. Follow Up: When gel shots get approved. All questions were answered. Patient verbalized understanding of treatment plan [email or web address] Not available 02/15/2025 16:28:34 03/27/2025 03/27/2025 HPI: 54 year old male presents today for Monovisc injection for left knee pain secondary to osteoarthritis. Previous treatments have included cortisone injection, HEP, and anti-inflammatori es. Pain is mainly located on the medial aspect of the knee. Pain is aggravated with activities. Takes naproxen for pain, with mild relief. Currently rates pain 8/10, and states it is getting difficulty to work due to the pain. He is a current smoker and diabetic Physical Exam: General: Normal appearance. No acute distress. Inspection: Mild swelling over the medial aspect of knee Palpation: Tenderness to palpation of the medial joint line ROM: 0-130 Gait: Antalgic gait Special Test: Motor: 5/5 strength. Sensation: Sensation intact. Assessment & Plan: Injection given today. Patient tolerated injection. Patient will monitor site for signs of infection and report any adverse side effects. Medrol dose pack to help with inflammation Will try a medial community relations director brace. Follow Up: As needed. Can try cortisone injections between gel injections. All questions were answered. Patient verbalized understanding of treatment plan [email or web address] Not available 03/29/2025 19:39:02 Plan of Treatment Reminders Order Date Submit Date Provider Last Modified By Organization Details Last Modified Time Details Appointments None recorded. Lab None recorded. Referral physical therapist referral - EVAL AND TREAT 2023 024 [facility], [address], [place], [address], 4 15:32:28 Procedures injection/a spiration joint/bursa (PROC) 2024 025 [email or web address] In-Office Order, Internal Use Only DO Not Attach Compendium DO Not Attach Compendium, Do Not Delete/merge, [id number] 5 15:59:54 injection/a spiration joint/bursa (PROC) 2024 025 [email or web address] In-Office Order, Internal Use Only DO Not Attach Compendium DO Not Attach Compendium, Do Not Delete/merge, [id number] 5 11:15:28 injection/a spiration joint/bursa (PROC) - in office procedure, administere d by provider 2023 024 [email or web address] In-Office Order, Internal Use Only DO Not Attach Compendium DO Not Attach Compendium, Do Not Delete/merge, [id number] 4 15:34:22 Surgeries None recorded. Imaging XR, knee, 4 or more view 2023 024 [email or web address] [facility] [place] [facility], [address], [place], [address], 4 08:22:49 Medication Orders Medrol (Kristian) 4 mg tablets in a dose pack 2024 025 [facility], [address] [place] [address], [address], 5 19:42:16 naproxen 500 mg tablet 2024 025 [facility] [address], [address] [place] [address], [address], 5 19:42:16 naproxen 500 mg tablet 2024 025 [facility] [address], [address] [place] [address], [address], 5 16:20:44 bupivacaine HCl 0.5 % (5 mg/mL) injection solution [address], [address] [place] [address], [address], 5 15:30:31 Kenalog 10 mg/mL suspension for injection [address], [address] [place] [address], [address], 5 15:30:31 Marcaine (PF) 0.5 % (5 mg/mL) injection solution [address], [address] [place] [address], [address], 4 16:31:29 Kenalog 10 mg/mL suspension for injection 2023 024 [email or web address] [facility] [address], [address] [place], [address], 4 16:31:29 Patient TargetsNo targets recorded. Patient Instructions Encounter Date Encounter Id Patient Instructions Last Modified By Organization Details Last Modified Time 02/13/2025 [id number] viscosupplementa tion treatment* - L knee [email or web address] [email or web address] Not available 03/14/2025 07:44:01 Reason for Referral Physical Therapist Referral for Pain of left knee joint EVAL AND TREAT Referring Physician: Mitesh Herring, Orthopedic Surgery, Encounter Date: 04/18/2024 Results Created Date Observation Date Name Description Value Unit Range Abnormal Flag Note LastModifiedBy Organization Detail LastModifiedTime 04/18/20 24 XR, knee, 4 or more view No observ ation record ed. [facility] [place] [address], [place], [address], 04/18/2024 14:52:49 Result Notes None recorded. Problems Name Problem SNOMED Code Status Onset Date Resolution Date Notes Provider Name and Address Organization Details Recorded Time Pain of shoulder region 16264496 Active 2019 Not Available [facility] 3 13:12:36 Spinal stenosis in cervical region 19298916 Active 2019 Not Available [facility] 3 13:12:36 Pain of left knee joint 0640193804042 07 Active 2023 KAYE Beck, [employer] 4 14:52:31 Osteoarthr itis of left knee joint 0012152607532 09 Active 2024 KAYE Beck, [employer] [facility] [employer] 5 16:55:23 Problem Notes None recorded. Procedures Surgical History Date Name Laterality Status Provider Name and Address Organization Details Recorded Time 5 Jeff Injection Template completed Lynda Aguilar PA-C [address], [place], [address], [employer] [facility] 03/29/2025 16:02:13 5 Ortho - Cortisone Injection completed Lynda Aguilar PA-C [address], [address], [place], [address], [email or web address] [facility] 12/12/2024 12:48:02 4 Ortho - Cortisone Injection completed Mitesh Herring MD [address], [place], [address], [employer] [facility] [employer] 04/19/2024 00:25:57 Imaging Results None recorded. Procedure Notes None recorded. Medical Equipment None Reported. Allergies No known drug allergies Medications Name Sig Start Date Stop Date Status Note LastModified by Organization Details LastModified Time losartan 50 mg tablet TAKE 1 TABLET BY MOUTH ONCE DAILY active Not Available Not Available No t Available cyclobenz aprine 10 mg tablet TAKE 1 TABLET BY MOUTH THREE TIMES DAILY active Not Available Not Available No t Available metformin 500 mg tablet 04/17 completed Not Available Not Available Not Available prednison e 10 mg tablet 04/17 completed Not Available Not Available Not Available cefuroxim e axetil 250 mg tablet TAKE 2 TABLETS BY MOUTH TWICE DAILY FOR 10 DAYS 04/18 completed Not Available Not Available Not Available sildenafi l 50 mg tablet TAKE 1 TABLET BY MOUTH ONCE DAILY NEEDED active Not Available Not Available No t Available indapamid e 2.5 mg tablet TAKE 1 TABLET BY MOUTH ONCE DAILY active Not Available Not Available No t Available hydrocodo ne 5 mg-acetam inophen 325 mg tablet TAKE 1 TO 2 TABLETS BY MOUTH EVERY 4 HOURS NEEDED FOR PAIN active Not Available Not Available No t Available meloxicam 15 mg tablet TAKE 1 TABLET BY MOUTH ONCE DAILY active Not Available Not Available No t Available bupivacai ne HCl 0.5 % (5 mg/mL) injection solution Take 2 mL by injectio n route. 2024 active Not Available Not Available Not Avai lable prednison e 20 mg tablet TAKE 2 TABLETS BY MOUTH ONCE DAILY FOR 5 DAYS active Not Available Not Available No t Available allopurin ol 100 mg tablet active Not Available Not Available Not Available omeprazol e 40 mg capsule,d elayed release 04/17 completed Not Available Not Available Not Available sildenafi l 25 mg tablet TAKE 1 TABLET BY MOUTH ONCE DAILY NEEDED active Not Available Not Available No t Available sildenafi l 100 mg tablet TAKE 1 TABLET BY MOUTH ONCE DAILY. TAKE 6 HOURS PRIOR TO SEXUAL ACTIVITY . DO NOT EXCEED 100 MG PER DAY, DO NOT TAKE FOR MORE THAN 3 DAYS CONSECUT IVELY. active Not Available Not Available No t Available hydrocort isone acetate 25 mg rectal supposito ry 12/24 completed Not Available Not Available Not Available prednison e 10 mg tablets in a dose pack Take 1 tab by mouth, 3 times a day for 3 daysTake 1 tab by mouth 2 times a day for 2 daysTake 1 tab by mouth once a day for 1 day 04/17 completed Not Available Not Available Not Available potassium chloride ER 20 mEq tablet,ex tended release(p art/cryst ) 04/17 completed Not Available Not Available Not Available amitripty line 25 mg tablet TAKE 1 TABLET BY MOUTH EVERY DAY AT BEDTIME active Not Available Not Available No t Available Kenalog 10 mg/mL suspensio n for injection Take 4 mL by injectio n route. 2024 active [facility]: [phone] Not Available Not Available Not Available doxycycli ne monohydra te 100 mg capsule TAKE 1 CAPSULE BY MOUTH TWICE DAILY FOR 7 DAYS active Not Available Not Available No t Available buspirone 30 mg tablet 04/17 completed Not Available Not Available Not Available buspirone 10 mg tablet TAKE 1 TABLET BY MOUTH TWICE DAILY FOR ANXIETY 12/24 completed Not Available Not Available Not Available docusate sodium 100 mg capsule TAKE 1 CAPSULE BY MOUTH TWICE DAILY active Not Available Not Available No t Available gabapenti n 300 mg capsule TAKE 1 CAPSULE BY MOUTH 4 TIMES DAILY FOR 30 DAYS . APPOINTM ENT REQUIRED FOR FUTURE REFILLS active Not Available Not Available No t Available hydroxyzi ne HCl 25 mg tablet active Not Available Not Available No t Available allopurin ol 300 mg tablet 04/17 completed Not Available Not Available Not Available mirtazapi ne 15 mg tablet 12/24 completed Not Available Not Available Not Available gabapenti n 100 mg capsule 12/24 completed Not Available Not Available Not Available methylpre dnisolone 4 mg tablets in a dose pack TAKE BY MOUTH DIRECTED ON INSIDE OF PACKAGE active Not Available Not Available No t Available albuterol sulfate HFA 90 mcg/actua tion aerosol inhaler INHALE 2 PUFFS BY MOUTH EVERY 4 TO 6 HOURS NEEDED FOR SHORTNES S OF BREATH FOR WHEEZING FOR 30 DAYS active Not Available Not Available No t Available ondansetr on 4 mg disintegr ating tablet DISSOLVE 1 TABLET IN MOUTH EVERY 6 HOURS NEEDED FOR NAUSEA AND VOMITING FOR 3 DAYS active Not Available Not Available No t Available dicyclomi ne 10 mg capsule active Not Available Not Available Not Available finasteri de 5 mg tablet 04/17 completed Not Available Not Available Not Available naproxen 500 mg tablet Take 1 tablet by mouth twice daily 2024 active Not Available Not Available Not Avai lable cyclobenz aprine 5 mg tablet 12/24 completed Not Available Not Available Not Available rosuvasta tin 20 mg tablet TAKE 1 TABLET BY MOUTH ONCE DAILY active Not Available Not Available No t Available Marcaine (PF) 0.5 % (5 mg/mL) injection solution Take 4 mL by injectio n route. 2023 active Not Available Not Available Not Avai lable Boostrix Tdap 2.5 Lf unit-8 mcg-5 Lf/0.5 mL intramusc ular syringe ADM 0.5ML IM UTD 12/24 completed Not Available Not Available Not Available fenofibra te 160 mg tablet 04/18 completed Not Available Not Available Not Available Symbicort 80 mcg-4.5 mcg/actua tion HFA aerosol inhaler active Not Available Not Available Not Available Farxiga 10 mg tablet active Not Available Not Available Not Available Monovisc 88 mg/4 mL intra-art icular syringe Take 4 mL by intraart icular route. 2024 active Please mail to patient Not Available Not Available Not Available Trulicity 1.5 mg/0.5 mL subcutane ous pen injector 04/18 completed Not Available Not Available Not Available OneTouch Ultra Blue Test Strip 12/24 completed Not Available Not Available Not Available OneTouch Ultra2 Meter 04/17 completed Not Available Not Available Not Available OneTouch Delica Plus Lancet 33 gauge 12/24 completed Not Available Not Available Not Available albuterol sulf 90 mcg/actua tion breath activated powder inhaler,s ensor Inhale 2 puffs every 4 hours by inhalati on route. 04/17 completed Not Available Not Available Not Available Trulicity 3 mg/0.5 mL subcutane ous pen injector INJECT 1 PEN-INJE CTOR SUBCUTAN EOUSLY ONCE A WEEK active Not Available Not Available No t Available FreeStyle Neville 3 Plus Sensor device USE TO CONTINUO USLY MONITOR GLUCOSE, CHANGE EVERY 15 DAYS active Not Available Not Available No t Available Vitals Date Recorded Body height Body mass index (BMI) Body weight Pain severity - 0-10 verbal numeric rating [Score] - Reported Provider Name and Address Organization Details Last Updated DateTime 12/12/2024 177.8 cm 31.6 kg/m2 20803.32 g 7 KAYE Beck [facility] [employer] [facility] 12/12/2024 10:49:36 Date Recorded Body height Body mass index (BMI) Body weight Provider Name and Address Organization Details Last Updated DateTime 02/13/2025 177.8 cm 31.6 kg/m2 86392.32 g 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 [facility] [employer] [facility] 02/13/2025 14:04:02 Date Recorded Body height Body mass index (BMI) Body weight Pain severity - 0-10 verbal numeric rating [Score] - Reported Provider Name and Address Organization Details Last Updated DateTime 03/27/2025 177.8 cm 31.6 kg/m2 96364.32 g 8 KAYE Beck [facility] [employer] [facility] 03/27/2025 15:58:50 Date Recorded Body height Body mass index (BMI) Body weight Pain severity - 0-10 verbal numeric rating [Score] - Reported Provider Name and Address Organization Details Last Updated DateTime 04/18/2024 177.8 cm 31.6 kg/m2 23136.32 g KAYE Barkley [facility] [employer] [facility] 04/18/2024 14:50:00 Social History Question Answer Notes LastModified by Organizat ion Details LastModified Time Tobacco Smoking Status Current Every Day Smoker KAYE Beck [facility] [employer] [facility] 04/18/2024 14:51:34 What Was The Date Of Your Most Recent Tobacco Screening? 04/18/2024 Information not available 04/18/2024 Sex: Unknown Functional Status Question Answer Note LastModified by Organization D etails LastModified Time What is your level of alcohol consumption? Heavy Information not available 04/18/2024 Mental Status None recorded. Family History Relationship Description Onset Age of this Age Resolved Age Notes LastModified by Organization Details LastModified Time Mother Hypertensive disorder [email or web address] Not available 2023 14:51:05 Medical History Condition Response DIABETES, TYPE Y COPD Y HYPERTENSION Y GOUT Y Past Encounters Encounter ID Performer Location Encounter Start Date Encounter Closed Date Diagnosis/Indication Diagnosis SNOMED-CT Code Diagnosis ICD10 Code Diagnosis IMO Codes Diagnosis Note [id number] Mitesh Herring MD [facility] [address] [place] [address] 04/18/2024 14:30:27 04/18/2024 15:26:27 Pain of left knee joint 5993903955 53600 M25.678 [id number] Mitesh Herring MD [facility] [address] [place] [address] 12/12/2024 10:46:58 12/12/2024 11:18:35 Pain of left knee joint 4715948870 51187 M25.316 [id number] Mitesh Herring MD [facility] [address] [place] [address] 02/13/2025 14:02:37 02/13/2025 14:49:55 Pain of left knee joint 5918369936 06036 M25.562 Osteoarthr itis of left knee joint 3405440222 31048 M17.12 [id number] Mitesh Herring MD [facility] [address] [place] [address] 03/27/2025 15:31:26 03/27/2025 17:10:40 Osteoarthritis of left knee joint 1958205870 22426 M17.12 8979319 5531601 Health Concerns Section Related Observation LastModified by Organization Detai ls LastModified Time None Recorded Concern Status LastModified by Organization Details LastModified Time None Recorded Advance Directives Directive None Recorded Payers Insurance Date Sequence Insurance Name Policy Number Policy Jarrett Covered Member ID Jarrett Member ID Guarantor Name 04/04/2025 1 BUCK (PPO) [id number] Alessio Iyer [id number] Alessio Iyer
--- OUTSIDE RECORDS SUMMARY | 2025-06-19 17:25 | XMS_ITS | Clinical Summary ---
Author Organization [facility] Building B Address [address] [place] [address] Care Team Providers Care Manager Fixed Income Name Role Phone Blaze Paulino MD Primary Care Provider [phone] Allergies No known active allergies Medications budesonide-formot Gee (SYMBICORT) 80-4.5 mcg/actuation inhaler Inhale 2 puffs 2 (two) times a day Active indapamide (LOZOL) 2.5 mg tablet indapamide 2.5 mg tablet Active losartan (COZAAR) 50 mg tablet losartan 50 mg tablet Active omeprazole (PriLOSEC) 40 mg capsule omeprazole 40 mg capsule,delayed release Active rosuvastatin (CRESTOR) 20 mg tablet rosuvastatin 20 mg tablet Active allopurinoL (ZYLOPRIM) 100 mg tablet Take 1 tablet (100 mg total) by mouth daily 06/14/20 22 Active BD Ultra-Fine Mini Pen Needle 31 gauge x 3/16 needle USE 1 ONCE DAILY 04/23/20 22 Active Tdap (Boostrix Tdap) 2.5-8-5 Lf-mcg-Lf/0.5mL vaccine Active Farxiga 10 mg tablet 06/25/20 22 Active albuterol (PROAIR DIGIHALER) 90 mcg/actuation inhaler every 4 hours Active blood-glucose meter mis OneTouch Ultra2 Meter Active hydrOXYzine (ATARAX) 25 mg tablet Take by mouth 3 (three) times a day as needed 08/06/20 22 Active gabapentin (NEURONTIN) 300 mg capsule Take 1 capsule (300 mg total) by mouth 4 (four) times a day 08/24/20 23 Active amitriptyline (ELAVIL) 50 mg tablet 04/11/20 25 Active triamcinolone (Kenalog) 10 mg/mL injection Take 4 mL by injection route. 12/13/19 25 Active ondansetron ODT (ZOFRAN-ODT) 4 mg disintegrating tablet DISSOLVE 1 TABLET IN MOUTH EVERY 6 HOURS NEEDED FOR NAUSEA AND VOMITING FOR 3 DAYS Active naproxen (NAPROSYN) 500 mg tablet Take 1 tablet (500 mg total) by mouth 2 (two) times a day 04/23/20 25 Active Monovisc 88 mg/4 mL syringe Take 4 mL by intraarticular route. 03/13/20 25 Active fluticasone propion-salmetero L (ADVAIR DISKUS) 250-50 mcg/dose diskus inhaler 2 (two) times a day 09/28/19 22 Active doxycycline monohydrate (MONODOX) 100 mg capsule TAKE 1 CAPSULE BY MOUTH TWICE DAILY FOR 7 DAYS Active docusate sodium (COLACE) 100 mg capsule Take 1 capsule (100 mg total) by mouth 2 (two) times a day Active BUPivacaine (MARCAINE) 0.5 % (5 mg/mL) injection Take 4 mL by injection route. 04/18/20 24 Active dicyclomine (BENTYL) 10 mg capsule Active blood-glucose sensor (FreeStyle Neville 3 Plus Sensor) device Use to continuously monitor glucose, change every 15 days. E11.9 6 each 4 05/15/20 25 Active Trulicity 3 mg/0.5 mL pen injectorIndicatio ns:type 2 diabetes mellitus Inject 0.5 mL (3 mg total) under the skin every 7 days E11.65 6 mL 3 05/24/20 25 Active Trulicity 3 mg/0.5 mL pen injectorIndicatio ns:type 2 diabetes mellitus Inject 0.5 mL (3 mg total) under the skin every 7 days E11.65 6 mL 4 05/15/20 25 025 Disconti nued(Reo rder) Active Problems Problem Noted Date Diagnosed Date freestyle neville continuous glucose monitoring de 05/15/2025 Assessment & Plan (05/15/2025 3:09 PM CDT): Continuous glucose monitor (cgm) applied from 05/02/2025 to 05/15/2025 This device was placed for monitor and treatment of blood sugar. Interpretation of data- 97% time in range. 1% hyperglycemia. 2% hypoglycemia. Average glucose 105 Hypertrophy of nasal turbinates 05/17/2024 Chronic maxillary sinusitis 05/17/2024 Cervical radiculopathy 12/20/2023 Cervicalgia 12/20/2023 Degeneration of cervical intervertebral disc Essential hypertension 12/20/2023 Chronic obstructive pulmonary disease 12/15/2023 SOB (shortness of breath) 12/15/2023 Chronic pansinusitis 10/25/2023 Assessment & Plan (10/25/2023 12:27 PM CONTRACT DESIGNER): He has Pretty significant sinusitis on his [...] 02/21/2023 Assessment & Plan (10/11/2023 1:06 PM CONTRACT DESIGNER): This is a chronic condition which is [...] 01/04/2023 Assessment & Plan (10/25/2023 12:26 PM CONTRACT DESIGNER): He does have a severely deviated nasal [...] 01/04/2023 Assessment & Plan (10/25/2023 12:34 PM CONTRACT DESIGNER): This is likely due to the deviated [...] 03/10/2022 Assessment & Plan (10/11/2023 1:25 PM CONTRACT DESIGNER): This is a chronic condition which is [...] rosuvastatin. Assessment & Plan (11/10/2022 2:33 PM CONTRACT DESIGNER): This is a chronic condition which is [...] fenofibrate Assessment & Plan (07/13/2022 2:49 PM CONTRACT DESIGNER): This is a chronic condition which is [...] Encounters Date Type Department Care Team Description 05/24/2025 Telephone [facility] Diabetes Endocrine Care at [address] [address] Paloma Pwoer NP 05/16/2025 Telephone [facility] Diabetes Endocrine Care at [address] [address] Paloma Power NP 05/16/2025 Results Follow-Up [facility] Diabetes Endocrine Care at [address] [address] Paloma Power, ANTHONY Albumin Creatinine Ratio, Urine 05/15/2025 3:30 PM CDT Lab [facility] - Outpatient Center at [address] [id number] Type 2 diabetes mellitus with stage 2 chronic kidney disease, with long-term current use of insulin (HCC) 05/15/2025 3:00 PM CDT Office Visit [facility] Diabetes Endocrine Care at [address] [place] [address] Paloma Power NP Type 2 diabetes mellitus with stage 2 chronic kidney disease, with long-term current use of insulin (HCC) (Primary Dx); Essential hypertension; Mixed diabetic hyperlipidemia associated with type 2 diabetes mellitus (HCC); freestyle neville continuous glucose monitoring device from Last 3 Months Immunizations Immunization Administration Dates Next Due Tdap 09/02/2019,05/03/2014 Surgical History Surgery Date Site/Laterality Comments COLON SURGERY HERNIA REPAIR Medical History Medical History Date Comments HL (hearing loss) Sinusitis COPD (chronic obstructive pulmonary disease) Diabetes Hypertension History of kidney problems GERD (gastroesophageal reflux disease) Tinnitus Dizziness Family History Medical History Relation Name Comments Diabetes Father Relation Name Status Comments Father Social History Tobacco Use Types Packs/Day Years Used Date Smoking Tobacco: Every Day Cigarettes Tobacco Cessation:Ready to Q uit: Not Asked; Counseling Given: Not Answered Sex and Gender Information Value Date Recorded Sex Assigned at Not on file Legal Sex Male 8:10 AM CDT Gender Identity Not on file Sexual Orientation Not on file Obstetrics History Last Filed Vital Signs Vital Sign Reading Time Taken Comments Blood Pressure 136/74 05/15/2025 3:03 PM CDT Pulse 98 12/20/2023 1:21 PM CDT Temperature 37 C (98.6 F) 12/20/2023 1:21 PM CDT Respiratory Rate 14 12/20/2023 1:21 PM CDT Oxygen Saturation 92% 12/20/2023 1:21 PM CDT Inhaled Oxygen Concentration - - Weight 84.2 kg (185 lb 11.2 oz) 05/15/2025 3:03 PM CDT Height 177.8 cm (5' 10) 05/15/2025 3:03 PM CDT Body Mass Index 26.65 05/15/2025 3:03 PM CDT Plan of Treatment Health Maintenance Due Date Last Done Comments Colon Cancer Screening-Colonoscopy 1969 Depression Screening 1969 Hepatitis C Screening 1969 Prostate Cancer Screening-PSA 1969 Foot Exam 1969 Hepatitis B Screening 12/10/1987 Regular Well Visit/Exam 18-64 12/10/1987 Pneumococcal vaccine <65 (1 of 2 - PCV) 1988 Zoster Vaccine (1 of 2) 12/10/2019 Lipid Panel 10/11/2024 10/11/2023, 05/18/2022 eGFR 10/11/2024 10/11/2023, 05/18/2022 Lung Cancer Screening 12/15/2024 12/15/2023 Influenza Vaccine (#1) 2025 Hemoglobin A1C 11/12/2025 05/15/2025, 02/0 02/2024, 02/21/2023, Additional history exists Albumin Creatinine Ratio, Urine 05/15/2026 05/15/2025, 10/11/2023, 05/18/2022 Dilated Eye Exam 05/15/2026 05/15/2025 DTaP/Tdap/Td Vaccine (3 - Td or Tdap) 09/02/2029 09/02/2019, 05/03/2014 Procedures Procedure Name Priority Date/Time Associated Diagnosis Comments ALBUMIN CREATININE RATIO, URINE Routine 05/15/2025 3:21 PM CDT Type 2 diabetes mellitus with stage 2 chronic kidney disease, with long-term current use of insulin (HCC) POCT HEMOGLOBIN A1C Routine 05/15/2025 3:06 PM CDT Type 2 diabetes mellitus with stage 2 chronic kidney disease, with long-term current use of insulin (HCC) POCT GLUCOSE Routine 05/15/2025 3:04 PM CDT Type 2 diabetes mellitus with stage 2 chronic kidney disease, with long-term current use of insulin (HCC) RETINAVUE SCANNER - OU - BOTH EYES Routine 05/15/2025 Type 2 diabetes mellitus with stage 2 chronic kidney disease, with long-term current use of insulin (HCC) CT LUNG CANCER SCREENING Schedule Routine, Read Routine (OP Routine) 12/15/2023 8:55 AM CDT Nicotine dependence, cigarettes, uncomplicated EGFR Routine 10/11/2023 1:28 PM CONTRACT DESIGNER Type 2 diabetes mellitus with stage 2 chronic kidney disease, with long-term current use of insulin (HCC) LIPID PANEL Routine 10/11/2023 1:28 PM CONTRACT DESIGNER Type 2 diabetes mellitus with stage 2 chronic kidney disease, with long-term current use of insulin (HCC) from Last 3 Months or Most Recently Relevant to Health Maintenance Results * Albumin Creatinine Ratio, Urine (05/15/2025 3:21 PM CDT) [facility] Albumin Ur 16.2 mg/L Comment: Interpretive Data No reference range established. Current interpretive data was last revised 2019. Testing performed by: [facility], [address] [place] [address]., [id number] Creatinine Ur 76.6 mg/dL [facility] Comment: Interpretive Data No reference range established. Current interpretive data was last revised 2019. Testing performed by: [facility], [address] [place] [address]., [id number] Albumin Creatinine Ratio, Ur 21 1 - 29 mg/g [facility] Comment:Testing performed by : [facility], [address] [place] [address]., [id number] Urine 05/15/2025 3:21 PM CDT 05/15/2025 8:39 PM CDT Paloma Power NP LAB URINE ORDERABLES Final Resu lt [address] Department of Laboratories [place], [place] [id number] * (ABNORMAL) POCT hemoglobin A1c (05/15/2025 3:06 PM CDT) [facility] Hemoglobin A1C, POC 5.7(A) 4.0 - 5.6 % Blood 05/15/2025 3:06 PM CDT Paloma Power NP POINT OF CARE TEST ORDERABLES F inal Result * POCT glucose (05/15/2025 3:04 PM CDT) [facility] Glucose Blood, POC 163 Normal Fasting 70 - 100, Random <200 mg/dL Blood 05/15/2025 3:04 PM CDT us Paloma Power NP POINT OF CARE TEST ORDERABLES F inal Result * RetinaVue Scanner - OU - Both Eyes (05/15/2025) Anatomical Region Laterality Modality Head Fundus Photograp hy 05/15/2025 us Paloma Power NP OPHTH PHOTOGRAPHY Final Result * CT Lung Cancer Screening (12/15/2023 8:55 [...] Keanu Packer D.O. PS: PS Report ID: [id number] Reading Location: [place] [address] Procedure Note Keanu Packer DO - 12/15/2023 [...] Keanu Packer D.O. PS: PS Report ID: [id number] Reading Location: [place] [address] Jose Snow MD IM CT PROCEDURES Nevaeh l Result * eGFR (10/11/2023 1:28 PM CONTRACT DESIGNER) eGFR 101 mL/min/1. 73 m2 [facility]OE[facility] STEVENS (MUSE) Comment: Interpretive Data Reference Interval Normal >/= [...] last reviewed 2021. Blood 10/11/2023 1:28 PM CONTRACT DESIGNER 10/11/2023 3:51 PM CONTRACT DESIGNER us Paloma Power NP LAB BLOOD ORDERABLES Final Resu lt PHOE[facility] STEVENS (NEY) 1 [facility] Department [place] [address] * Lipid panel (10/11/2023 1:28 PM CONTRACT DESIGNER) Cholesterol 142 30 - 199 mg/dL PHOEBE [...] last revised on 2018. Chol/HDL ratio 3 JESENIAPHILL Stephanie STEVENS (NEY) Blood 10/11/2023 1:28 PM CONTRACT DESIGNER 10/11/2023 3:51 PM CONTRACT DESIGNER Narrative JESENIALAURA RODNEY (NEY) - 10/11/2023 4:37 PM CONTRACT DESIGNER These lab test should be done fasting. This means do not eat or drink for at least 12 hours prior to getting your blood drawn. us Paloma Power NP LAB BLOOD ORDERABLES Final Resu lt PHOEBE RODNEY (NEY) 1 [facility] Department [place] [address] from Last 3 Months or Most Recently Relevant to Health Maintenance Insurance [employer] OOS [employer] OOS BLUE ACC CHOICE OOS Care Teams Manager Fixed Income Relationship Specialty Start Date End Date Blaze Paulino MD PCP - General Emergency Medicine 05/03/22
--- OUTSIDE RECORDS SUMMARY | 2025-06-19 17:25 | XMS_ITS | Clinical Summary ---
Author Organization [facility] Address [address] [place] [address] Care Team Providers Care Cardiology Fellow Name Role Phone Unavailable Primary Care Provider [...] 2) 12/10/2019 COVID-19 Vaccine (2023-2 5 season) 2025 Influenza Adult (#1) 2025 Meningococcal B Vaccine Aged Out No l onger eligible based on patient's age to complete this topic Meningococcal Vaccine Aged Out No tati madison eligible based on patient's age to complete this topic RSV Immunizations Under 20 Months Aged Out No longer eligible based on patient's age to complete this topic
--- OUTSIDE RECORDS SUMMARY | 2025-06-19 17:25 | XMS_ITS | Patient Health Record ---
Author Organization [facility] [employer] Address [address] [address] Support Name Relationship Address Phone JUSTIN KILPATRICK Guarantor Unknown [phone] Reason For Referral No Information Plan Of Treatment No Information
[2025-06-19] MEDS: POTASSIUM BICARBONATE 25 MEQ TABEF 50 MEQ PO (17:30)
[2025-06-19] MEDS: SODIUM CHLORIDE 0.9% IV 1,000 ML 999 ML IV CONT (17:30)
--- OUTSIDE RECORDS SUMMARY | 2025-06-19 17:51 | XMS_ITS | Clinical Summary ---
Author Organization [facility] Address [address] [place] [address] Care Team Providers Care Sponge Press Operator Name Role Phone Unavailable Primary Care Provider [...]
--- OUTSIDE RECORDS SUMMARY | 2025-06-19 17:51 | XMS_ITS | Clinical Summary ---
Author Organization [facility] Address [address] [place] [phone] Phone Care Team Providers Care Auditor Medical Claims Name Role Phone Blaze Paulino MD Primary Care Provider [phone] Allergies No known active allergies Medications indapamide [...] Type Department Care Team Description 04/10/2025 Telephone [facility] [address] [facility], [address] [place] [address] Sarah Corey NP from Last 3 Months [...] Comments Blood Pressure 134/82 10/27/2023 9:04 AM PARK RANGER Pulse 102 10/27/2023 9:04 AM PARK RANGER Temperature - - Respiratory Rate - - Oxygen Saturation 94% 04/28/2023 8:50 AM CDT Inhaled Oxygen Concentration - - Weight 93.9 kg (207 lb) 10/27/2023 9:04 AM PARK RANGER Height 172.7 cm (5' 8) 10/27/2023 9:04 AM PARK RANGER Body Mass Index 31.47 10/27/2023 9:04 AM PARK RANGER Plan of Treatment Health Maintenance Due Date Last Done Comments Diabetic Foot Exam 12/10/1979 Ophthalmology Exam 12/10/1979 Pneumococcal PPSV23 Highest Risk Adult (1 of 3 - PCV13 ) 1988 Influenza Vaccine (#1) 2025 Insurance Care Teams Auditor Medical Claims Relationship Specialty Start Date End Date Blaze Paulino MD PCP - General 11/18/21
--- OUTSIDE RECORDS SUMMARY | 2025-06-19 17:51 | XMS_ITS | Clinical Summary ---
Author Organization [facility] Medical Office Building B Address [address] [place] [address] Care Team Providers Care Trophy Assembler Name Role Phone Blaze Paulino MD Primary Care Provider [phone] Allergies No known active allergies Medications budesonide-formot [...] 10/25/2023 Assessment & Plan (10/25/2023 12:27 PM DOWEL MAKER): He has Pretty significant sinusitis on his [...] 02/21/2023 Assessment & Plan (10/11/2023 1:06 PM DOWEL MAKER): This is a chronic condition which is [...] 01/04/2023 Assessment & Plan (10/25/2023 12:26 PM DOWEL MAKER): He does have a severely deviated nasal [...] 01/04/2023 Assessment & Plan (10/25/2023 12:34 PM DOWEL MAKER): This is likely due to the deviated [...] 03/10/2022 Assessment & Plan (10/11/2023 1:25 PM DOWEL MAKER): This is a chronic condition which is [...] rosuvastatin. Assessment & Plan (11/10/2022 2:33 PM DOWEL MAKER): This is a chronic condition which is [...] fenofibrate Assessment & Plan (07/13/2022 2:49 PM DOWEL MAKER): This is a chronic condition which is [...] Type Department Care Team Description 05/24/2025 Telephone [facility] Diabetes Endocrine Care at [address] [phone] Paloma Power NP 05/16/2025 Telephone [facility] Diabetes Endocrine Care at [address] [phone] Paloma Power NP 05/16/2025 Results Follow-Up [facility] Diabetes Endocrine Care at [address] [phone] Paloma Power, ANTHONY Albumin Creatinine Ratio, Urine 05/15/2025 3:30 PM CDT Lab [facility] Outpatient Lab - Outpatient Center at [address] [id number] Type 2 diabetes mellitus with stage 2 chronic kidney disease, with long-term current use of insulin (HCC) 05/15/2025 3:00 PM CDT Office Visit [facility] Diabetes Endocrine Care at [address] [place] [phone] Paloma Power NP Type 2 diabetes [...] cigarettes, uncomplicated EGFR Routine 10/11/2023 1:28 PM DOWEL MAKER Type 2 diabetes mellitus with stage 2 chronic kidney disease, with long-term current use of insulin (HCC) LIPID PANEL Routine 10/11/2023 1:28 PM DOWEL MAKER Type 2 diabetes mellitus with stage 2 chronic kidney disease, with long-term current use of insulin (HCC) from Last 3 Months or Most Recently Relevant to Health Maintenance Results * Albumin Creatinine Ratio, Urine (05/15/2025 3:21 PM CDT) [facility] Albumin Ur 16.2 mg/L Comment: Interpretive Data No reference range established. Current interpretive data was last revised 2019. Testing performed by: [facility], [address] [place] [address]., [id number] Creatinine Ur 76.6 mg/dL [facility] Comment: Interpretive Data No reference range established. Current interpretive data was last revised 2019. Testing performed by: [facility], [address] [place] [address]., [address] Albumin Creatinine Ratio, Ur 21 1 - 29 mg/g [facility] Comment:Testing performed by : [facility], [address] [place] [address]., [address] Urine 05/15/2025 3:21 PM CDT 05/15/2025 8:39 PM CDT Paloma Power NP LAB URINE ORDERABLES Final Resu lt [address] Department of Laboratories [place], [place] [id number] * (ABNORMAL) POCT hemoglobin A1c (05/15/2025 3:06 PM CDT) [facility] Hemoglobin A1C, POC 5.7(A) 4.0 - 5.6 % Blood 05/15/2025 3:06 PM CDT Paloma Power NP POINT OF CARE TEST ORDERABLES F inal Result * POCT glucose (05/15/2025 3:04 PM CDT) [facility] Glucose Blood, POC 163 Normal Fasting 70 [...] Keanu Packer D.O. PS: PS Report ID: [id number] Reading Location: [place] [address] Procedure Note Keanu Packer DO - 12/15/2023 [...] Keanu Packer D.O. PS: PS Report ID: [id number] Reading Location: [place] [address] Jose Snow MD IM CT PROCEDURES Nevaeh l Result * eGFR (10/11/2023 1:28 PM DOWEL MAKER) eGFR 101 mL/min/1. 73 m2 [facility]OE[facility] STEVENS ([place]) Comment: Interpretive Data Reference Interval Normal >/= [...] last reviewed 2021. Blood 10/11/2023 1:28 PM DOWEL MAKER 10/11/2023 3:51 PM DOWEL MAKER us Paloma Power NP LAB BLOOD ORDERABLES Final Resu lt PHOE[facility] STEVENS (NEY) 1 [facility] Department [place] [address] * Lipid panel (10/11/2023 1:28 PM DOWEL MAKER) Cholesterol 142 30 - 199 mg/dL PHOEBE [...] on 2018. LDL, calculated 78 <=129 mg/dL POHEBE STEVENS (NEY) Comment: Interpretive Data Ages < [...] Stephanie STEVENS (NEY) Blood 10/11/2023 1:28 PM DOWEL MAKER 10/11/2023 3:51 PM DOWEL MAKER Narrative JESENIALAURA RODNEY (NEY) - 10/11/2023 4:37 PM DOWEL MAKER These lab test should be done fasting. This means do not eat or drink for at least 12 hours prior to getting your blood drawn. us Paloma Power NP LAB BLOOD ORDERABLES Final Resu lt PHOEBE RODNEY (NEY) 1 [facility] Department [place] [address] from Last 3 Months or Most Recently Relevant to Health Maintenance Insurance [employer] OOS [employer] OOS BLUE ACC CHOICE OOS Care Teams Trophy Assembler Relationship Specialty Start Date End Date Blaze Paulino MD PCP - General Emergency Medicine 05/03/22
[2025-06-19 17:52] LABS: Magnesium 1.7 mg/dL (1.6-2.3)
[2025-06-19 18:21] VITALS: BP 132/84; PULSE 93; RESP 14; O2SAT 98
[2025-06-19] MEDS: DICYCLOMINE HCL 10 MG CAPSULE 20 MG PO (18:34)
== END 2025-06-19 19:06 | disposition home or self-care (01) ==
PROVIDERS: Student in an Organized Health Care Education/Training Program; Emergency Provider Student in an Organized Health Care Education/Training Program; PCP Emergency Medicine
DX: R10.84 Generalized abdominal pain (principal); R11.2 Nausea with vomiting, unspecified; R19.4 Change in bowel habit; E87.6 Hypokalemia; D72.829 Elevated white blood cell count, unspecified; J44.9 Chronic obstructive pulmonary disease, unspecified; I10 Essential (primary) hypertension; N40.0 Benign prostatic hyperplasia without lower urinary tract symptoms; E11.9 Type 2 diabetes mellitus without complications; E78.5 Hyperlipidemia, unspecified; K21.9 Gastro-esophageal reflux disease without esophagitis; K58.9 Irritable bowel syndrome, unspecified; M19.90 Unspecified osteoarthritis, unspecified site; M10.9 Gout, unspecified; F41.9 Anxiety disorder, unspecified; F17.210 Nicotine dependence, cigarettes, uncomplicated; Z86.0101 Personal history of adenomatous and serrated colon polyps; Z90.49 Acquired absence of other specified parts of digestive tract; Z79.85 Long-term (current) use of injectable non-insulin antidiabetic drugs; Z79.899 Other long term (current) drug therapy
CPT/HCPCS: 36415; 74177; 80053; 81001; 83605; 83690; 83735; 85025; 96360; 99284; A9270; J7030; Q9967

== ENCOUNTER 2025-06-25 10:34 | Outpatient (CLI) | payer BC, SELFPAY ==
--- NOTE | ~2025-06-25 | XR_ITS ---
EXAMINATION: XR abdomen/kub 1V, 06/25/2025 10:50 CDT HISTORY: constipation/MID ABD PAIN COMPARISON: No comparisons available. Technique: 3 view. Findings: Moderate fecal content, no dilated bowel loops No free air. No abnormal calcifications No acute osseous abnormality. Impression: 1. No acute abnormality. Reviewed, dictated and finalized at location P. Impression: 1. No acute abnormality.
[2025-06-25 12:03] LABS: Prostate Specific Antigen 1.0 ng/mL (< OR = 4.0)
== END 2025-06-25 10:35 | disposition home or self-care (01) ==
LOC: ANHLAB 10:36
PROVIDERS: PCP Emergency Medicine; Visit Provider Nurse Practitioner
DX: Z12.5 Encounter for screening for malignant neoplasm of prostate (principal); K58.9 Irritable bowel syndrome, unspecified
CPT/HCPCS: 36415; 74018; 84153; G0103